=== PATIENT | female | born 1965 | race Caucasian/White ===

== ENCOUNTER 2025-02-21 18:15 | Inpatient (IN) | payer OTHER, SELFPAY ==
[2025-02-21 18:32] VITALS: BP 118/49; PULSE 74; RESP 16; TEMP 36.3; O2SAT 96
[2025-02-21 18:56] VITALS: BMI 31.4
[2025-02-21 20:00] VITALS: PULSE 68; RESP 16; O2SAT 91
[2025-02-21 20:04] VITALS: BMI 31.4
[2025-02-21 20:27] VITALS: BP 127/65; PULSE 68; RESP 16; TEMP 36.6; O2SAT 91
[2025-02-21 21:03] VITALS: BP 127/65; PULSE 68
[2025-02-21] MEDS: Senna/Docusate Sodium 1 Tablet 2 TABLET PO (21:03)
[2025-02-21] MEDS: Metoprolol(XL)Succ 25 MG Tablet PO (21:03)
[2025-02-21] MEDS: SACUBITRIL/VALSARTAN 49-51 MG TABLET 1 EACH PO (21:03)
[2025-02-21] MEDS: Insulin Glargine-YFGN 100 UNIT/ML Pen 15 UNIT SC (21:04)
[2025-02-21 22:02] LABS: Bedside Glucose 171 mg/dL (74-106)
[2025-02-21 23:56] VITALS: BMI 31.4
[2025-02-22 05:55] LABS: Absolute Lymphocyte Count 1.99 X10^3/uL (0.83-4.51); Absolute Neutrophil Count 2.7 X10^3/uL (2.0-7.7); Basophil# 0.07 X10^3/uL; Basophil% 1.3 % (0-1); Eosinophil# 0.22 X10^3/uL; Hematocrit 44.5 % (37-47); Hemoglobin 14.6 g/dL (12.0-15.0); Lymphocyte # 1.99 X10^3/ul (0.83-4.51); Lymphocyte % 36.5 % (19-41); Mean Corp Hgb Conc 32.8 g/dL (32-36); Mean Corpuscular Hgb 30.4 pg (27.0-32.0); Mean Corpuscular Volume 92.5 fL (81-99); Mean Platelet Vol. 11.6 fl (6.2-12.0); Monocyte# 0.47 X10^3/uL; Monocyte% 8.6 % (0-10); NRBC Flagged by Analyzer 0 % (0-5); Neutrophil # 2.68 X10^3/uL (2.7-7.7); Neutrophil % 49.2 % (47-70); Platelet Count 232 K/mm3 (150-450); RBC Distribution Width CV 14.2 % (11.6-14.6); RBC Distribution Width SD 48.6 fl (35.1-43.9); Red Blood Count 4.81 M/mm3 (4.2-5.4); White Blood Count 5.5 K/mm3 (4.4-11.0)
[2025-02-22 06:00] VITALS: BP 144/81; PULSE 63; RESP 15; TEMP 36.6; O2SAT 99
[2025-02-22 07:11] LABS: ALB/GLOB Ratio 0.9 RATIO (0.9-2.4); AST(SGOT) 30 U/L (<=31); Alanine Aminotransfer ALT/SGPT 21 U/L (<=34); Albumin, Serum 3.5 g/dL (3.5-5.0); Alkaline Phosphatase 102 U/L (35-104); Anion Gap 12 (5-15); BUN 40 mg/dL (4-19); BUN/Creat Ratio 32.2 RATIO (10-20); Calcium,Total 9.2 mg/dL (7.6-11.0); Carbon Dioxide 28.1 mmol/L (21.0-32.0); Chloride 95 mmol/L (98-108); Creatinine, Serum 1.24 mg/dL (0.70-1.20); EST Glomerular Filtration Rate 50 (>60); Estimated Creatinine Clearance 58.47 ml/min (50-250); Globulin 3.7 g/dL (2.2-4.2); Glucose 80 mg/dL (70-99); Magnesium 2.8 mg/dL (1.5-2.2); Phosphorus 4.5 mg/dL (2.7-4.5); Protein, Total 7.1 g/dL (5.9-8.4); Sodium Level 136 mmol/L (133-145); Total Bilirubin 2.25 mg/dL (0.00-1.30)
[2025-02-22 07:28] LABS: Bedside Glucose 86 mg/dL (74-106)
[2025-02-22 09:16] VITALS: BP 144/81; PULSE 63
[2025-02-22] MEDS: Bumetanide 0.5 MG Tablet 1 MG PO (09:16)
[2025-02-22] MEDS: Senna/Docusate Sodium 1 Tablet 2 TABLET PO (09:16)
[2025-02-22] MEDS: Empagliflozin 10 MG Tablet PO (09:16)
[2025-02-22] MEDS: Pantoprazole Sodium 20 MG Tablet PO (09:16)
[2025-02-22] MEDS: Metoprolol(XL)Succ 25 MG Tablet PO ×2 (09:16→21:31)
[2025-02-22] MEDS: Clopidogrel Bisulfate 75 MG Tablet PO (09:17)
[2025-02-22] MEDS: Enoxaparin 40 MG/0.4 ML Syringe SC (09:17)
[2025-02-22] MEDS: Aspirin 81 MG TAB.CHEW PO (09:17)
[2025-02-22] MEDS: SACUBITRIL/VALSARTAN 49-51 MG TABLET 1 EACH PO ×2 (09:17→21:31)
--- NOTE | 2025-02-22 09:59 | EX.PCM.HP.RE ---
[facility] - General General Date of Admission: 02/21/25 Date of Service: 02/22/25 Chief Complaint: POST STROKE DEBILITY HPI Narrative KAMILAH HOYT, is a 59 YO F with a past medical history of left bundle branch block, mild nonobstructive coronary artery disease, pulmonary hypertension, essential hypertension, GERD, uncontrolled diabetes mellitus type 2, small PFO, noncompliance with medications, obstructive sleep apnea, history of meningioma (status post resection) obesity, hyperlipidemia, old TIA and nonischemic CM with a 30-35 % EF (on Entresto) who presented to the emergency department at [facility] on 02/12/2025 complaining of increased shortness of breath, bilateral lower extremity swelling and a 50 pound weight gain over the previous few months. Had been noncompliant with her medications. She was transferred to [facility] on 02/13/2025 for management of acute on chronic congestive heart failure. Transthoracic echocardiogram on 02/13/2025 showed increased left ventricular cavity size with an ejection fraction of 25 to 30% and moderate diffuse hypokinesis. Diastolic dysfunction was present. There was mild to moderate mitral regurgitation. The left atrium was mildly dilated. Right ventricular systolic function was decreased and the right ventricular systolic pressure was estimated at 45. There was mild to moderate tricuspid regurgitation and the right atrium was dilated. While hospitalized at [facility] she developed slurred speech. A stroke alert was called. Noncontrast CT brain showed no acute intracranial pathology. CTA of the head and neck showed no evidence of flow-limiting stenosis or large vessel occlusion. MRI of the brain without contrast showed bilateral infarcts in the right occipital lobe and the left frontal lobe/brady radiata. She had a transesophageal echocardiogram on 02/19/2025 that showed no PFO (although she had a diagnosis of small PFO in the past). LDL was 63 and the HDL was 43. Triglycerides were 144. HGBA1C was 10.2. Post stroke she was seen by PT/OT/ST and acute inpt rehab was recommended. She was transferred to the acute inpt rehab unit at [facility] on 02/21/25 for 3 hours of therapy daily to restore function/independence at or near her level prior to stroke. 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 She drives. Her son lives with her. We discussed why she has been on-compliant with medications. It is not a financial thing.......she just didn't take them. She admits to feeling chronically fatigued. She also admits to being irritable at times and tearful. She has trouble getting motivated to take care of herself. She has been depressed in the past but has never received medication or therapy for depression. No significant family history of mental illness. Has also been neglecting her dental care. Diagnosed with diabetes and cardiomyopathy a few years ago. Cannot tell me why she has a cardiomyopathy but it is not ischemic per review of the EMR. She had a sleep study 10 over 10 years ago and was told she has sleep apnea but has never been treated. She has a glucometer at home but does not check her blood sugars. The meningioma was resected 10 years ago. Her customer service analyst is Dr. Poe [facility] Medical History (Updated 02/22/25 @ 12:[address] Lara Forman, ) Poor dentition Asthma Pulmonary hypertension Nonrheumatic tricuspid valve regurgitation Nonrheumatic mitral valve regurgitation Biatrial enlargement Diastolic dysfunction Left bundle branch block History of meningioma of the brain Obesity (BMI 30.0-34.9) HTN (hypertension) Hyperlipidemia GERD (gastroesophageal reflux disease) Nonischemic cardiomyopathy Chronic HFrEF (heart failure with reduced ejection fraction) Uncontrolled type 2 diabetes mellitus Home Medications ?Medication ?Instructions ?Recorded ?Last Taken ?Type acetaminophen 325 mg tablet (Aphen) 650 mg PO Q4H PRN pain 02/21/25 Unknown History aspirin 81 mg capsule 81 mg PO DAILY heart health 02/21/25 Unknown History atorvastatin 40 mg tablet 40 mg PO DAILY cholesterol 02/21/25 Unknown History bumetanide 1 mg tablet 1 mg PO DAILY fluid retention 02/21/25 Unknown History clopidogrel 75 mg tablet 75 mg PO DAILY Blood thinner 02/21/25 Unknown History empagliflozin 10 mg tablet 10 mg PO DAILY Blood sugar 02/21/25 Unknown History (Jardiance) insulin glargine 100 unit/mL (3 15 unit subcut QPM Blood sugar 02/21/25 Unknown History mL) subcutaneous pen (Lantus Solostar U-100 Insulin) insulin lispro 100 unit/mL 3 unit subcut TID blood sugar 02/21/25 Unknown History subcutaneous pen (Humalog KwikPen (U-100) Insulin) metoprolol succinate 25 mg capsule 25 mg PO BID BP 02/21/25 Unknown History sprinkle, ext. release 24 hr omeprazole 20 mg capsule,delayed 20 mg PO DAILY GERD 02/21/25 Unknown History release sacubitril 97 mg-valsartan 103 mg 0.5 tab PO BID BP 02/21/25 Unknown History tablet (Entresto) Allergy/AdvReac Type Severity Reaction Status Date / Time No Known Allergies Allergy Verified 02/21/25 19:08 Family History (Updated 02/22/25 @ 11:[address] Lara Forman DO) Other Diabetes Surgical History (Updated 02/22/25 @ 11:[address] Lara Forman DO) History of resection of meningioma Social History (Updated 02/22/25 @ 11:[address] 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 [facility] Smoking Status: Never smoker substance use type: does not use ROS Constitutional Constitutional: Reports change in weight, fatigue and weakness; Denies anorexia, chills, fever(s) or night sweats Eyes Eyes: Reports change in vision, loss of vision and other Details: Visual field cut in the right lateral inferior quadrant ; Denies blurry vision, diplopia, discharge from eye(s) or eye pain ENT HEENT: Denies abnormal hearing, dental pain, dysphagia, headache(s), hearing loss, nasal congestion, sore throat or vertigo Cardiovascular Cardiovascular: Reports dyspnea on exertion and edema; Denies chest pain, lightheadedness, orthopnea, orthostatic symptoms, palpitations, paroxysmal nocturnal dyspnea, pounding heartbeat, racing heartbeat or syncope Respiratory/Chest Respiratory/Chest: Reports shortness of breath with exertion and other Details: Intermittent wheezing-does not use an inhaler ; Denies cough, dyspnea, shortness of breath at rest or wheezing Gastrointestinal Gastrointestinal: Denies abdominal pain, constipation, diarrhea, dyspepsia, dysphagia, hematemesis, hematochezia, nausea or vomiting Genitourinary Genitourinary: Reports urinary incontinence; Denies dysuria, hematuria, nocturia, urinary frequency, urinary hesitancy or urinary urgency Musculoskeletal Musculoskeletal: Denies back pain, joint pain, joint swelling or neck pain Integumentary Integumentary: Denies acne, hirsutism, jaundice, rash or unusual bruising Neurologic Neurologic: Reports disequilibrium, focal weakness, weakness and other Details: Slurred speech left, some trouble word finding, right lateral inferior quadrantanopia, right-sided weakness, ataxia with the right upper extremity, no extinction ; Denies confusion, dizziness, headache(s), paresthesias, seizures, tremor(s) or vertigo Psychiatric Psychiatric: Reports anhedonia, depression and other; Denies anxiety, hallucinations, homicidal ideation, suicidal ideation, suicidal thoughts or visual hallucinations Endocrine Endocrinology: Denies change in body appearance, polydipsia or polyuria Hematologic/Lymphatic Hematologic/Lymphatic: Denies easy bleeding, easy bruising or lymphadenopathy Allergic/Immunologic Allergic/Immunologic: Reports asthma; Denies rhinitis or eczemia Vital Signs Vital Signs Vital Signs: 02/21/25 18:32 02/21/25 20:00 02/21/25 20:27 Temperature 97.4 F L 97.8 F Temperature Source Temporal Oral Pulse Rate 74 68 68 Respiratory Rate 16 16 16 Respiratory Effort Normal Non-Labored Respiratory Depth Normal Respiratory Pattern Normal Blood Pressure 118/49 L 127/65 H Blood Pressure Mean 72 85 Blood Pressure Source Monitor Monitor Blood Pressure Position Sitting Semi-Fowlers Blood Pressure Location Left Arm Left Arm Pulse Ox 96 91 91 Oxygen Delivery Method Room Air Room Air Room Air Oxygen Flow Rate (L/min) 02/21/25 21:03 02/22/25 06:00 02/22/25 09:16 Temperature 97.8 F Temperature Source Temporal Pulse Rate 68 63 63 Respiratory Rate 15 Respiratory Effort Respiratory Depth Respiratory Pattern Blood Pressure 127/65 H 144/81 H 144/81 H Blood Pressure Mean 102 Blood Pressure Source Monitor Blood Pressure Position Semi-Fowlers Blood Pressure Location Right Arm Pulse Ox 99 Oxygen Delivery Method Nasal Cannula Oxygen Flow Rate (L/min) 2 Weight Weight: 206 lb 9.17 oz Body Mass Index (BMI) 31.4 Indicators for Scoring Admitted with or Primary Diagnosis of CVA/Stroke: Yes Hx of CVA/Stroke: Yes Modified [place] Score MRS Score at time of Evaluation: 4-Moderate/severe disability NIHSS NIHSS 1a. Level of Consciousness: 0 - Alert; keenly responsive 1b. LOC Questions: 0 - Answers BOTH questions correctly 1c. LOC Commands: 0 - Performs BOTH tasks correctly 2. Best Gaze: 1 - Normal 3. Visual: 1 - Partial hemianopia (Right lateral inferior quadrantanopia) 4. Facial Palsy: 2 - Partial paralysis (total or near-total paralysis of lower face) 5a. Left Arm: 0 - No drift; arm holds 90 (or 45) degrees for full 10 seconds 5b. Right Arm: 0 - No drift; arm holds 90 (or 45) degrees for full 10 seconds (She is right-hand dominant and the right upper extremity is definitely weaker than the left) 6a. Left Le - No drift; leg holds 30-degree position for full 5 seconds 6b. Right Le - No drift; leg holds 30-degree position for full 5 seconds (Able to hold her leg up for 5 seconds but weaker in the right leg than the left.) 7. Limb Ataxia: 1 - Present in 1 limb (Right upper extremity) 8. Sensory: 0 - Normal; no sensory loss 9. Best Language: 0 - No aphasia; normal 10. Dysarthria: 1 = [id number] dysarthria; 11. Extinction and Inattention: 0 - No abnormality Total: 5 Stroke Questions Stroke Team Activated: No Physical Exam Const alert, oriented x3 and no apparent distress Constitutional Narrative: Sitting in the recliner at the bedside. Appears older than her stated age. Flat affect. Somewhat unkempt. General Appearance: cooperative HEENT head/scalp atraumatic and hearing grossly normal bilaterally HEENT Narrative: poor dental health has not followed up with a dentist in several years. Tongue deviates to the right. Eyes PERRL, EOMs intact bilaterally and conjunctivae normal Eyes Narrative: Mild scleral icterus. No discharge from the eyes. Loss of vision in the right inferior lateral quadrant. Neck supple, No nodes and no carotid bruits General: trachea midline Chest Chest: symmetrical chest wall rise Resp Resp Narrative: Somewhat decreased breath sounds throughout, most pronounced in the right lower quadrant. Scattered mild expiratory wheeze. Not tachypneic. Respirations are not labored. Effort and Inspection: able to speak in complete sentences Cardio regular rate, regular rhythm, S1 normal heart sound, S2 normal heart sound, no murmurs, no rub and no gallops Cardio Narrative: No ectopy GI normal to inspection, nondistended, normoactive bowel sounds, soft to palpation and non-tender GI Narrative: No guarding with palpation Extremity no calf tenderness and no pedal edema Skin Rashes: no rashes Neuro oriented x3 and moves all extremities Neuro Narrative: She has no drift with the right upper extremity or right lower extremity however she is weak on the right side compared to the left. Marked right facial droop and tongue deviates to the right. She has right lateral inferior quadrantanopia. Ataxic with the right upper extremity. No extinction. No aphasia. Significant dysarthria but I am able to understand her easily. Some neglect of the right side, may be related to the visual field cut. No ataxia with the right lower extremity. She is right-hand dominant. No tremors. Psych cooperative, denies hallucinations and denies suicidal ideation Psych Narrative: Very flat affect. Appearance: unkempt and other Appears older than her stated age Attitude: calm Activity / Motor Behavior: appropriate eye contact; Negative for psychomotor agitation, fidgetting, disorganized or restless Mood & Affect: depressed Thought Process: normal thought process, No disorganized, No flight of ideas, No loose associations, No perseverating, No tangential, No racing thoughts and other Tells me she is having some trouble with word finding. Attention / Concentration: attention grossly intact Results Lab / Micro Data 02/22/25 05:39 02/22/25 05:39 Labs: Laboratory Results - last 24 hr 02/21/25 20:59: POC Glucose 171 H 02/22/25 05:39: WBC 5.5, RBC 4.81, Hgb 14.6, Hct 44.5, MCV 92.5, MCH 30.4, MCHC 32.8, RDW Std Deviation 48.6 H, RDW Coeff of [place]ise[place] 14.2, Plt Count 232, MPV 11.6, Immature Gran % (Auto) 0.400, Neut % (Auto) 49.2, Lymph % (Auto) 36.5, [place] % (Auto) 8.6, Eos % (Auto) 4.0, Baso % (Auto) 1.3 H, Absolute Neuts (auto) 2.7, Absolute Lymphs (auto) 1.99, Nucleated RBC % 0, Sodium 136, Potassium 4.0, Chloride 95 L, Carbon Dioxide 28.1, Anion Gap 12, BUN 40 H, Creatinine 1.24 H, Estim Creat Clear Calc 58.47, Est GFR (MDRD) Non-Af 50 L, BUN/Creatinine Ratio 32.2 H, Glucose 80, Calcium 9.2, Phosphorus 4.5, Magnesium 2.8 H, Total Bilirubin 2.25 H, AST 30, ALT 21, Alkaline Phosphatase 102, Total Protein 7.1, Albumin 3.5, Globulin 3.7, Albumin/Globulin Ratio 0.9 02/22/25 07:01: POC Glucose 86 Assessment & Plan Assessment/Plan (1) Debility: (2) Ischemic cerebrovascular accident (CVA): (3) Urinary incontinence: QUALIFIERS: Urinary Incontinence type: unspecified incontinence Qualified Code(s): R32 - Unspecified urinary incontinence (4) Ataxia: (5) Dysarthria: (6) Right sided weakness: (7) Quadrantanopia of right eye: (8) Depression: QUALIFIERS: Depression Type: unspecified Qualified Code(s): F32.A - Depression, unspecified (9) Hyperbilirubinemia: (10) Elevated serum creatinine: PLAN: I do not know her baseline. Will get records from her customer service analyst and most recent labs. May have CRF. GFR at admission to rehab is 50 which is consistent with stage 3a CRF. (11) Acute on chronic combined systolic and diastolic congestive heart failure: (12) Chronic HFrEF (heart failure with reduced ejection fraction): PLAN: EF 25-30% on recent TTE 02/13/25. (13) Nonischemic cardiomyopathy: (14) GERD (gastroesophageal reflux disease): QUALIFIERS: Esophagitis presence: without esophagitis Qualified Code(s): K21.9 - Gastro-esophageal reflux disease without esophagitis (15) Hyperlipidemia: QUALIFIERS: Hyperlipidemia type: unspecified Qualified Code(s): E78.5 - Hyperlipidemia, unspecified (16) HTN (hypertension): QUALIFIERS: Hypertension type: primary hypertension Qualified Code(s): I10 - Essential (primary) hypertension (17) Uncontrolled type 2 diabetes mellitus: QUALIFIERS: Glycemic state: with hyperglycemia Qualified Code(s): E11.65 - Type 2 diabetes mellitus with hyperglycemia PLAN: HGBA1C 10.2 on 02/13/25 (18) Asthma: QUALIFIERS: Asthma severity: mild Asthma persistence: intermittent Asthma complication type: with acute exacerbation Qualified Code(s): J45.21 - Mild intermittent asthma with (acute) exacerbation PLAN: Not currently being treated. Admits to wheezing but has no inhalers at home. (19) Pulmonary hypertension: PLAN: Transthoracic echocardiogram on 02/13/2025 shows a PA systolic pressure of 45. (20) Nonrheumatic tricuspid valve regurgitation: (21) Nonrheumatic mitral valve regurgitation: (22) Biatrial enlargement: (23) Diastolic dysfunction: (24) Left bundle branch block: (25) Obesity (BMI 30.0-34.9): (26) Obstructive sleep apnea: PLAN: Sleep study was done 10 or more years ago at [facility] She has never been treated for sleep apnea. PLAN: Plan PLAN PT for gait stability OT for ADL's ST for evaluation Analgesics as needed Bowel protocol Fall precautions Assess for Anxiety/Depression GI prophylaxis -Protonix DVT prophylaxis with Lovenox Follow up with PCP, Dr. Poe, neurology following DC from Rehab. I think she would benefit from psychotherapy for chronic depression. AM lab including CMP, CBC, Mag and Phos Start Sertraline 50 mg daily - D/W pt and she is agreeable to this. Overnight trending pulse ox. Recommend follow up [place] with a dentist Ask her about MMG's, PAPs, vaccines during this admission to see if she is up to date. Daily weights for a few days and I&O Straight cath for a UA due to urinary incontinence. Monitor blood sugars AC and at bedtime. The fasting blood sugar was 86 this morning. Consider decreasing glargine if the a.m. sugars consistently less than 90. Continue Jardiance 10 mg daily. Goal for blood pressure is less than 130/80 Goal for hemoglobin A1c is 7 or less Goal for LDL is 70 or less....... LFTs are normal PA and lateral chest x-ray today to assess for pulmonary vascular congestion/pleural effusion. Order a as needed albuterol inhaler Obtain records from Check a vitamin D level Continue dual antiplatelet agents for 3 weeks. 75 Minutes spent reviewing past diagnostic tests, lab results, vital sign trends, medical history, medications, all additional paperwork sent by the previous hospital, and ordering medications, examining the the patient and completing documentation. Charges/Coding Visit Charges Inpatient E&M: 66096 Init Hosp L3
--- NOTE | 2025-02-22 11:32 | RAD_ITS ---
PROCEDURE: CHEST PA AND LATERAL 02/22/2025 REASON FOR EXAM: CHF/SOB TECHNIQUE: Frontal and lateral views of the chest. COMPARISON: None FINDINGS: Hardware: None Heart: The heart size is normal. Mediastinum: The mediastinal contour is unremarkable. Lungs: The lungs are clear. Bones: Degenerative changes are identified within the thoracic spine. RAD/Chest PA and Lateral IMPRESSION: NO ACUTE FINDINGS. Reading Location: [facility]
[2025-02-22 11:33] LABS: Bedside Glucose 167 mg/dL (74-106)
[2025-02-22] MEDS: Sertraline 50 MG Tablet PO (12:07)
[2025-02-22] MEDS: Insulin Lispro 100 UNIT/ML INSULN.PEN SC ×2 (12:07→16:48)
[2025-02-22 14:44] LABS: Vitamin D,25 Hydroxy 7.1 ng/mL (30-100)
[2025-02-22 15:22] VITALS: BMI 31.4
--- NOTE | 2025-02-22 16:28 | REHABEVAL_ITS ---
Admission Information Primary Diagnosis:: Post stroke debility Status Changes from Prescreening?: No changes Identified Actual Problem List:: Cognitve Impr/Memory Loss, Depression, Bladder Incontinence, Alteration in Sleep, Mobility Impaired, Self Care Deficit, BP, Hypertension and Alteration-Leisure Activ. Potential Problem List:: DVT, Bleeding, Infection, UTI, Aspiration, Falls, Skin Integrity and Depression Risk of Complications DVT: LMWH and MIGUE Hose Bleeding: Monitor Lab Values, Nursing to Teach Precautions for anti-coagulation therapy., Wound, if applicable, to be assessed every shift. and Stroke patients assessed for lethargy or change in status. Infection: Clinical Staff to Monitor for S/S of infection: and S/S of infection include fever, redness, warmth, etc. Urinary Tract Infection: Monitor for frequency, burning, discomfort, or incontinence. and Nursing will obtain urine sample for urinalysis and C&S when ordered. Aspiration: Clinical staff will monitor for coughing, drooling, congestion., Speech will evaluate swallowing and dsyphasia. and Nursing will monitor patient swallowing during meals. Falls: Patient will be evaluated for Fall Precautions and Patient will be placed on Fall Precautions as indicated per protocol. Skin Breakdown: Nursing will assess skin daily using assessment tool. and Nursing will place on Skin Breakdown Precautions as indicated. Pain: Clinical staff will assess patient's pain level per protocol., Medications will be given, if needed, and the pain level reassessed. and Other methods: Massage, distraction, decrease stimulus, etc. used PRN. Plan of Care Patient requires physician specializing in physical medicine and rehab oversight to provide close medical supervision of rehab issues including: Pain Management, Sleep Problems, Bowel and Bladder, Medical and co-morbidity Management, DVT prophylaxis, Rehabilitation Leadership and Coordination of treatment team Patient needs Physical Therapy: For a minimum of 1 hour and At least 5 out of 7 days Patient needs Physical Therapy to improve:: Mobility, Strengthening, Transfers, Stretching, ROM, Endurance, Stairs, Gait and Balance Patient needs Occupational Therapy: For a minimum of 1 hour and At least 5 out of 7 days Patient needs Occupational Therapy to improve ADL's incl.: Eating, Grooming, Bathing, Dressing, Toileting, Toilet transfers, Community Reintegration, Higher functioning activities, Household tasks, Adaptive Equipment, Splinting and Other activities as determined Patient requires speech therapy: For a minimum of 1 hour and At least 5 out of 7 days Patient requires speech therapy for: Swallowing, Cognition, Language Skills and Compensatory Strategies Patient requires 24/ Rehabilitation Nursing for: Pain Issues, Identifying and preventing risk factors, Monitoring and reporting current medical conditions, As sisting with ambulation, transfer, and all ADL's, Teaching patients about disease process and medications, Family teaching, Providing safe environment, Bowel and Bladder Issues, Skin integrity and Medication Management Patient needs Finance Specialist/ Case Management for: Discharge Planning, Arranging Home Equipment or Services and Family Interventions Patient needs Dietary and Nutrition Services for: Adequate Nutrition, Nutritional Supplements and Nutritional Education Goals Goals Patient will remain: free from falls Patient will perform eating at: MOD I level of assist. Patient will perform bed mobility at: MOD I level of assist. Patient will complete transfers from bed to chair at: MOD I level of assist. Patient will ambulate: - (350 feet with least restrictive device at [facility] on various surfaces) Patient will complete upper body dressing at: MOD I level of assist. Patient will complete lower body dressing at: MOD I level of assist. (With adaptive equipment as needed) Patient will complete toilet transfer at: MOD I level of assist. Patient will complete toileting at: MOD I level of assist. Patient will perform bathing at: MOD I level of assist. (Patient will complete upper body bathing independently and lower body bathing at mod I with adaptive equipment as needed.) Patient will perform Tub/Shower transfer at: - (Supervision) Patient will complete grooming at: MOD I level of assist. Patient will complete home management skills at: MOD I level of assist. Patient will achieve: - (1 flight of stairs with 1 handrail at standby assist to allow access to her basement laundry) Patient will have pain level of: of 3 or less Patient's skin will: remain intact Patient will receive: adequate nutrition. Discharge Planning Pt Prognosis for Sig. Practical Improv. w/in Reasonable Time: Good Estimated Length of stay (days): 21 Anticipated D/C Destination: Home with Outpt Therapy Was Preadmission Assessment Accurate?: Yes
[2025-02-22 16:59] LABS: Bedside Glucose 195 mg/dL (74-106)
[2025-02-22 17:36] VITALS: BP 138/78; PULSE 77; RESP 18; TEMP 36.5; O2SAT 96
[2025-02-22 17:53] LABS: Bacteria 0 SEEN /hpf (None Seen); Mucous, Urine 0 SEEN /hpf (<or=2+); Red Blood Cells-Urine 0 SEEN /hpf (0-5); Squamous Epithelial Cells - UA 0 SEEN /hpf (5-10)
[2025-02-22 18:12] LABS: Color, Urine Yellow (Yellow); Glucose, Dipstick 1000 mg/dl (Normal); Ketone-Dipstick Negative (Negative); Leukocyte Esterase-Dipstick Negative /ul (Negative); Nitrite-Dipstick Negative (Negative); Occult Blood-Urine Negative /ul (Negative); Protein-Dipstick 30 mg/dl (Negative); Urine Bilirubin Dipstick Negative (Negative); Urine Clarity Clear (Clear); Urine Urobilinogen Normal (Normal)
[2025-02-22 18:37] LABS: Hyaline Cast 0-5 SEEN /lpf (0-5); White Blood Cells 0-5 SEEN /hpf (0-5)
[2025-02-22 21:27] LABS: Bedside Glucose 195 mg/dL (74-106)
[2025-02-22] MEDS: Insulin Glargine-YFGN 100 UNIT/ML Pen 15 UNIT SC (21:29)
[2025-02-22 21:30] VITALS: PULSE 77; RESP 18; O2SAT 96; BMI 31.4
[2025-02-22 21:31] VITALS: BP 155/75; PULSE 76
[2025-02-22] MEDS: Atorvastatin Calcium 40 MG Tablet PO (21:31)
[2025-02-22 22:50] VITALS: O2SAT 97
[2025-02-23 05:38] VITALS: BP 128/60; PULSE 64; RESP 18; TEMP 36.4; O2SAT 16; BMI 30.9
[2025-02-23] MEDS: Enoxaparin 40 MG/0.4 ML Syringe SC (05:42)
[2025-02-23 06:51] LABS: Bedside Glucose 105 mg/dL (74-106)
--- NOTE | 2025-02-23 06:57 | NURSING ---
2129 on the pt sister landon took pt home medications home with her .
[2025-02-23 07:45] VITALS: O2SAT 93
[2025-02-23] MEDS: Senna/Docusate Sodium 1 Tablet 2 TABLET PO (09:18)
[2025-02-23] MEDS: Pantoprazole Sodium 20 MG Tablet PO (09:18)
[2025-02-23] MEDS: Bumetanide 0.5 MG Tablet 1 MG PO (09:18)
[2025-02-23] MEDS: SACUBITRIL/VALSARTAN 49-51 MG TABLET 1 EACH PO ×2 (09:18→21:52)
[2025-02-23] MEDS: Aspirin 81 MG TAB.CHEW PO (09:18)
[2025-02-23] MEDS: Cholecalciferol (VIT D3) 25 MCG TABLET (1,000 UNITS) PO (09:18)
[2025-02-23] MEDS: Sertraline 50 MG Tablet PO (09:18)
[2025-02-23] MEDS: Empagliflozin 10 MG Tablet PO (09:19)
[2025-02-23] MEDS: Clopidogrel Bisulfate 75 MG Tablet PO (09:20)
[2025-02-23 09:21] VITALS: BP 110/62; PULSE 75
[2025-02-23] MEDS: Metoprolol(XL)Succ 25 MG Tablet PO ×2 (09:21→21:52)
[2025-02-23 10:23] VITALS: BMI 30.9
[2025-02-23 12:01] LABS: Bedside Glucose 159 mg/dL (74-106)
[2025-02-23] MEDS: Insulin Lispro 100 UNIT/ML INSULN.PEN SC ×2 (12:19→17:05)
[2025-02-23 17:41] LABS: Bedside Glucose 166 mg/dL (74-106)
[2025-02-23 18:00] VITALS: BP 116/65; PULSE 74; RESP 16; TEMP 35.9; O2SAT 95
[2025-02-23] MEDS: Insulin Glargine-YFGN 100 UNIT/ML Pen 15 UNIT SC (21:46)
[2025-02-23 21:52] VITALS: BP 122/69; PULSE 72
[2025-02-23] MEDS: Atorvastatin Calcium 40 MG Tablet PO (21:52)
[2025-02-23 21:55] VITALS: BP 122/69; PULSE 72
[2025-02-23 22:33] LABS: Bedside Glucose 168 mg/dL (74-106)
[2025-02-23 23:01] LABS: Hematocrit 44.1 % (37-47); Hemoglobin 14.7 g/dL (12.0-15.0)
--- NOTE | 2025-02-23 23:37 | NURSING ---
Pt having liquid stools with bright red blood. She has a moderate amount of blood in depends. Denies having hemorrhoids. Dr. Forman notified. Orders received to hold plavix, asa and lovenox. Stat H and H to be done. H and H stable at 14.7 and 44.1 this evening. Pt denies abdominal pain. VSS 122/69, hr 72.
[2025-02-23 23:53] VITALS: BMI 30.9
--- NOTE | 2025-02-24 03:53 | PCM.HP.STD ---
HPI - General General Date of Admission: 02/21/25 Chief Complaint: POST STROKE DEBILITY HPI Narrative KAMILAH HOYT, is a 59 F who presents [facility] Medical History (Updated 02/22/25 @ 12:[address] Lara Forman DO) Poor dentition Asthma Pulmonary hypertension Nonrheumatic tricuspid valve regurgitation Nonrheumatic mitral valve regurgitation Biatrial enlargement Diastolic dysfunction Left bundle branch block History of meningioma of the brain Obesity (BMI 30.0-34.9) HTN (hypertension) Hyperlipidemia GERD (gastroesophageal reflux disease) Nonischemic cardiomyopathy Chronic HFrEF (heart failure with reduced ejection fraction) Uncontrolled type 2 diabetes mellitus Home Medications ?Medication ?Instructions ?Recorded ?Last Taken ?Type acetaminophen 325 mg tablet (Aphen) 650 mg PO Q4H PRN pain 02/21/25 Unknown History aspirin 81 mg capsule 81 mg PO DAILY heart health 02/21/25 Unknown History atorvastatin 40 mg tablet 40 mg PO DAILY cholesterol 02/21/25 Unknown History bumetanide 1 mg tablet 1 mg PO DAILY fluid retention 02/21/25 Unknown History clopidogrel 75 mg tablet 75 mg PO DAILY Blood thinner 02/21/25 Unknown History empagliflozin 10 mg tablet 10 mg PO DAILY Blood sugar 02/21/25 Unknown History (Jardiance) insulin glargine 100 unit/mL (3 15 unit subcut QPM Blood sugar 02/21/25 Unknown History mL) subcutaneous pen (Lantus Solostar U-100 Insulin) insulin lispro 100 unit/mL 3 unit subcut TID blood sugar 02/21/25 Unknown History subcutaneous pen (Humalog KwikPen (U-100) Insulin) metoprolol succinate 25 mg capsule 25 mg PO BID BP 02/21/25 Unknown History sprinkle, ext. release 24 hr omeprazole 20 mg capsule,delayed 20 mg PO DAILY GERD 02/21/25 Unknown History release sacubitril 97 mg-valsartan 103 mg 0.5 tab PO BID BP 02/21/25 Unknown History tablet (Entresto) Allergy/AdvReac Type Severity Reaction Status Date / Time No Known Allergies Allergy Verified 02/21/25 19:08 Family History (Updated 02/22/25 @ 11:[address] Lara Forman DO) Other Diabetes Surgical History (Updated 02/22/25 @ 11:[address] Lara Forman DO) History of resection of meningioma Social History (Updated 02/22/25 @ 11:[address] 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[employer] Smoking Status: Never smoker substance use type: does not use Vital Signs Vital Signs Vital Signs: 02/23/25 05:38 02/23/25 07:45 02/23/25 09:21 Temperature 97.5 F L Temperature Source Oral Pulse Rate 64 75 Respiratory Rate 18 Respiratory Effort Respiratory Depth Respiratory Pattern Blood Pressure 128/60 H 110/62 Blood Pressure Mean 82 Blood Pressure Source Monitor Blood Pressure Position Semi-Fowlers Blood Pressure Location Left Forearm Pulse Ox 16 93 Oxygen Delivery Method Room Air Room Air 02/23/25 10:00 02/23/25 18:00 02/23/25 21:52 Temperature 96.7 F L Temperature Source Temporal Pulse Rate 74 72 Respiratory Rate 16 Respiratory Effort Normal Non-Labored Respiratory Depth Normal Respiratory Pattern Normal Blood Pressure 116/65 122/69 H Blood Pressure Mean 82 Blood Pressure Source Monitor Blood Pressure Position Semi-Fowlers Blood Pressure Location Left Arm Pulse Ox 95 Oxygen Delivery Method Room Air Room Air 02/23/25 21:55 02/23/25 22:00 Temperature Temperature Source Pulse Rate 72 Respiratory Rate Respiratory Effort Normal Non-Labored Respiratory Depth Normal Respiratory Pattern Normal Blood Pressure 122/69 H Blood Pressure Mean 86 Blood Pressure Source Monitor Blood Pressure Position Semi-Fowlers Blood Pressure Location Left Arm Pulse Ox Oxygen Delivery Method Weight Weight: 92.4 kg Body Mass Index (BMI) 30.9 Results Lab / Micro Data 02/23/25 22:46 02/22/25 05:39 Labs: Laboratory Results - last 24 hr 02/23/25 05:49: POC Glucose 105 02/23/25 11:38: POC Glucose 159 H 02/23/25 17:04: POC Glucose 166 H 02/23/25 21:43: POC Glucose 168 H 02/23/25 22:46: Hgb 14.7, Hct 44.1
--- NOTE | 2025-02-24 04:09 | NURSING ---
0320; Pt rang call warren to go to bathroom. Pt walked to bathroom with minimal assist. While using restroom pt stated she was dizzy and rested her head on nurse. Skin warm and dry. Vital signs taken BP 58/36 HR 72. Rapid called. Pt Passing blood in toilet. Dr. Schmitt, warehouse consultant and ICU nurse responded. Pt transferred from toilet to bed. Placed in Trendelenburg. BP 115/70 HR 76, Blood sugar 227. Pt states she is feeling a bit better. Pt had episode of dry heaving while on toilet. PIV started in r wrist #22 g, gbr. 0345; vs 100/51 hr 68. Pt taken out of Trendelenburg for transfer to PCU 109. BP dropped to 80/48 hr 70. Pt placed back in trendelenberg for transport bp 99/59, Hr 67. Report called to [place] [facility].
[2025-02-24 04:31] LABS: Absolute Lymphocyte Count 1.62 X10^3/uL (0.83-4.51); Absolute Neutrophil Count 4.2 X10^3/uL (2.0-7.7); Basophil# 0.06 X10^3/uL; Basophil% 0.9 % (0-1); Eosinophil# 0.16 X10^3/uL; Eosinophils% 2.4 % (0-5); Lymphocyte # 1.62 X10^3/ul (0.83-4.51); Lymphocyte % 24.5 % (19-41); Mean Corp Hgb Conc 33.3 g/dL (32-36); Mean Corpuscular Hgb 30.7 pg (27.0-32.0); Mean Platelet Vol. 12.6 fl (6.2-12.0); Monocyte% 7.6 % (0-10); NRBC Flagged by Analyzer 0 % (0-5); Neutrophil # 4.24 X10^3/uL (2.7-7.7); Platelet Count 243 K/mm3 (150-450); RBC Distribution Width SD 47.5 fl (35.1-43.9); Red Blood Count 4.24 M/mm3 (4.2-5.4); White Blood Count 6.6 K/mm3 (4.4-11.0)
[2025-02-24 04:52] LABS: Anion Gap 13 (5-15); BUN 45 mg/dL (4-19); Calcium,Total 8.8 mg/dL (7.6-11.0); Carbon Dioxide 27.3 mmol/L (21.0-32.0); Chloride 95 mmol/L (98-108); Creatinine, Serum 1.42 mg/dL (0.70-1.20); EST Glomerular Filtration Rate 43 (>60); Estimated Creatinine Clearance 50.71 ml/min (50-250); Glucose 222 mg/dL (70-99); Potassium 4.2 mmol/L (3.3-5.1); Sodium Level 135 mmol/L (133-145)
[2025-02-24 04:58] LABS: Bedside Glucose 227 mg/dL (74-106)
== END 2025-02-24 04:10 | disposition short-term general hospital (02) | DRG 57 ==
PROVIDERS: Hospitalist; Admitting Provider Internal Medicine; Visit Provider Internal Medicine
DX: I69.351 Hemiplegia and hemiparesis following cerebral infarction affecting right dominant side (principal); I13.0 Hypertensive heart and chronic kidney disease with heart failure and stage 1 through stage 4 chronic kidney disease, or unspecified chronic kidney disease; J45.21 Mild intermittent asthma with (acute) exacerbation; I50.42 Chronic combined systolic (congestive) and diastolic (congestive) heart failure; I42.8 Other cardiomyopathies; Q21.12 Patent foramen ovale; H53.461 Homonymous bilateral field defects, right side; I27.20 Pulmonary hypertension, unspecified; E11.65 Type 2 diabetes mellitus with hyperglycemia; N18.32 Chronic kidney disease, stage 3b; I69.322 Dysarthria following cerebral infarction; E66.9 Obesity, unspecified; Z79.4 Long term (current) use of insulin; I44.7 Left bundle-branch block, unspecified; K21.9 Gastro-esophageal reflux disease without esophagitis; G47.33 Obstructive sleep apnea (adult) (pediatric); E80.6 Other disorders of bilirubin metabolism; E78.5 Hyperlipidemia, unspecified; I69.393 Ataxia following cerebral infarction; I69.392 Facial weakness following cerebral infarction; I69.398 Other sequelae of cerebral infarction; E55.9 Vitamin D deficiency, unspecified; R32 Unspecified urinary incontinence; Z79.84 Long term (current) use of oral hypoglycemic drugs; Z68.31 Body mass index [BMI] 31.0-31.9, adult; Z79.899 Other long term (current) drug therapy; Z79.82 Long term (current) use of aspirin; Z79.02 Long term (current) use of antithrombotics/antiplatelets; Z91.148 Patient's other noncompliance with medication regimen for other reason
CPT/HCPCS: 36415; 71046; 80048; 80053; 81001; 82306; 82962; 83735; 84100; 85014; 85018; 85025; 92507; 92523; 92526; 92610; 94762; 97162; 97166; 97535; 97802

== ENCOUNTER 2025-02-24 04:56 | Inpatient (IN) | payer OTHER, SELFPAY ==
[2025-02-24] VITALS (14 sets, daily range): BP systolic 89–107; BP diastolic 46–86; PULSE 62–104; RESP 18; TEMP 35.8–36.6; O2SAT 90–100; BMI 31.0
--- NOTE | 2025-02-24 04:55 | HP.PCM.HOS_ITS ---
HPI - General General Date of Admission: 02/24/25 Date of Service: 02/24/25 Chief Complaint: Dark bloody stools with presyncopal symptoms HPI Narrative KAMILAH HOYT, is a 59 F who was initially hospitalized at [facility] from 02/12-02/21. She presented there with severe volume overload in setting of heart failure exacerbation secondary to medication nonadherence. The hospital course was complicated by CVA leading to impaired mobility. See Dr. Singleton's H&P for more complete history of her recent hospital course and outside hospital. She ultimately was able to be discharged to our inpatient rehab on 02/21. Had been doing fine here until earlier this evening. She was noted to have some lightheadedness and dizziness with ambulation and had a bowel movement with dark blood noted around 8 PM. Stat hemoglobin was obtained and was 14.7, stable from previous. However, around 2 AM patient ambulated to the bathroom and became very lightheaded and dizzy, and she had a large dark bloody bowel movement at that time. Nursing staff noted that she looked very pale and her blood pressure was in the 60s over 30s. Rapid response was called at that time. I arrived to her room a few minutes later. She was still sitting on the toilet with 2 nurses with her and appeared very pale. She had some dry heaving episodes at that time as well. She did improve slightly after a few minutes and was able to be shifted from the toilet back into bed. Blood pressure was rechecked and was in the 110s over 50s. She was awake and alert and able to answer my questions with short appropriate responses. Given the significant bloody bowel movements and suspected vasovagal episode, decision was made to admit patient to the PCU for further management. [facility] Medical History (Updated 02/24/25 @ 06:[address] Chance Schmitt, DO) Poor dentition Asthma Pulmonary hypertension Nonrheumatic tricuspid valve regurgitation Nonrheumatic mitral valve regurgitation Biatrial enlargement Diastolic dysfunction Left bundle branch block History of meningioma of the brain Obesity (BMI 30.0-34.9) HTN (hypertension) Hyperlipidemia GERD (gastroesophageal reflux disease) Nonischemic cardiomyopathy Chronic HFrEF (heart failure with reduced ejection fraction) Uncontrolled type 2 diabetes mellitus Home Medications ?Medication ?Instructions ?Recorded ?Last Taken ?Type acetaminophen 325 mg tablet (Aphen) 650 mg PO Q4H PRN pain 02/21/25 Unknown History aspirin 81 mg capsule 81 mg PO DAILY heart health 02/21/25 Unknown History atorvastatin 40 mg tablet 40 mg PO DAILY cholesterol 0 02/21/25 Unknown History bumetanide 1 mg tablet 1 mg PO DAILY fluid retentio n 02/21/25 Unknown History clopidogrel 75 mg tablet 75 mg PO DAILY Blood thinner 02/21/25 Unknown History empagliflozin 10 mg tablet 10 mg PO DAILY Blood sugar 02/21/25 Unknown History (Jardiance) insulin glargine 100 unit/mL (3 15 unit subcut QPM Blo od sugar 02/21/25 Unknown History mL) subcutaneous pen (Lantus Solostar U-100 Insulin) insulin lispro 100 unit/mL 3 unit subcut TID blood sug ar 02/21/25 Unknown History subcutaneous pen (Humalog KwikPen (U-100) Insulin) metoprolol succinate 25 mg capsule 25 mg PO BID BP Unknown History sprinkle, ext. release 24 hr omeprazole 20 mg capsule,delayed 20 mg PO DAILY GERD 0 02/21/25 Unknown History release sacubitril 97 mg-valsartan 103 mg 0.5 tab PO BID BP Unknown History tablet (Entresto) Allergy/AdvReac Type Severity Reaction Status Date / Time No Known Allergies Allergy Verified 02/21/25 19:08 Family History (Updated 02/22/25 @ 11:[address] Lara Forman DO) Other Diabetes Surgical History History of resection of meningioma Social History (Updated 02/22/25 @ 11:[address] 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 [facility] Smoking Status: Never smoker substance use type: does not use ROS Constitutional Constitutional: Reports fatigue and weakness; Denies chills or fever(s) Eyes Eyes: Denies change in vision Cardiovascular Cardiovascular: Reports lightheadedness; Denies chest pain, dyspnea on exertion or palpitations Respiratory/Chest Respiratory/Chest: Denies cough or shortness of breath at rest Gastrointestinal Gastrointestinal: Reports diarrhea, hematochezia and nausea; Denies abdominal pain, constipation or vomiting Genitourinary Genitourinary: Denies dysuria Musculoskeletal Musculoskeletal: Denies arthralgias or myalgias Neurologic Neurologic: Reports dizziness; Denies headache(s) Vital Signs Vital Signs Vital Signs: 02/24/25 04:10 02/24/25 04:51 Temperature 96.5 F L Temperature Source Temporal Pulse Rate 69 Respiratory Rate 18 Respiratory Effort Normal Non-Labored Respiratory Depth Normal Respiratory Pattern Normal Blood Pressure 103/54 L Blood Pressure Mean 70 Pulse Ox 99 Oxygen Delivery Method Nasal Cannula Venturi Mask Oxygen Flow Rate (L/min) 2 2 Weight Weight: 92.5 kg Body Mass Index (BMI) 31.0 Physical Exam Const alert Constitutional Narrative: Middle-aged female, class I obesity, fatigued and pale appearing, able to answer questions with short appropriate responses, otherwise not in any acute pain or discomfort. General Appearance: cooperative Orientation / Consciousness: lethargic HEENT normocephalic, head/scalp atraumatic, hearing grossly normal bilaterally and nasal mucous membranes and turbinates normal Eyes PERRL, EOMs intact bilaterally and conjunctivae normal Neck full ROM Chest inspection of chest normal Resp normal respiratory effort, normal air movement, no use of accessory muscles and clear to auscultation bilaterally Cardio regular rate, regular rhythm, no murmurs and peripheral pulses 2+ throughout GI GI Narrative: Abdomen soft, nontender and nondistended on palpation. Normal to mildly hypoactive bowel sounds noted. Back/Spine normal ROM Extremity normal to inspection and no pedal edema Skin no rashes or lesions noted Assessment & Plan Assessment/Plan (1) Lower GI bleed: PLAN: Plan Patient is a 59-year-old female who presented from our inpatient rehab unit for dark bloody bowel movements and presyncopal symptoms. 1. Lower GI bleed ? Admit under inpatient status to PCU. GI consulted. Patient had 2 episodes of significant dark bloody bowel movements while in IPR unit with significant blood pressure drop and presyncopal symptoms. Hemoglobin dropped from 14.[address] abdomen pelvis with IV contrast showed active GI bleed in the proximal descending colon near the splenic flexure. Seems most consistent with diverticular bleed. N.p.o. status and urgent GI consult placed. Will monitor hemoglobin every 6 hours. Type and screen ordered as well. Holding home aspirin and Plavix. 2. Recent acute CVA with acute debility ? PT/OT/case management consulted. Patient with CVA during recent admission at [facility] with deficits of dysarthria, ataxia, vision changes and mild right-sided weakness. May be able to return to [facility] on discharge, appreciate therapy recommendations. 3. Mild creatinine elevation ? Creatinine 1.42 on morning 02/24. Baseline appears to be around 1.1-1.2. Presume prerenal in setting of active GI bleed. Will hold home Bumex and Jardiance. Will give 750 cc fluid bolus for now. Monitor daily BMP and urine output. 4. Chronic HFrEF ? Hospitalized at [facility] recently for acute on chronic HFrEF due to medication nonadherence. Echo 02/13 showed EF 25 to 30% with moderate diffuse hypokinesis. Given active GI bleed with borderline hypotension as above, will hold home Bumex, Jardiance, Toprol and Entresto. Okay to continue home statin. 5. Type 2 diabetes mellitus ? Will treat with sliding scale insulin every 6 hours while patient is n.p.o. status. 6. GERD ? Continue home PPI. 7. Class I obesity with ALLYN ? BMI 31 on admit. Complicates hospital course, care and prognosis. Continue home CPAP. 8. Medication nonadherence ? See Dr. Forman's H&P for further details. In short, patient reported nonadherence due to chronic fatigue with irritability and symptoms consistent with depression. Will strongly encourage adherence to medications on discharge. DVT prophylaxis: SCDs CODE STATUS: Full code, verified Expected disposition: TBD Total clinical time spent by myself addressing the patient's medical issues, reviewing all the data, and collaborating with patient's care team: 75 minutes. Charges/Coding Visit Charges Inpatient E&M: 02251 Init Hosp L3
--- NOTE | 2025-02-24 05:00 | CT_ITS ---
PROCEDURE: ABDOMEN/PELVIS W IV CONT ONLY 02/24/2025 REASON FOR EXAM: LOWER GI BLEED TECHNIQUE: Abdomen and pelvis CT with intravenous contrast. Coronal and Sagittal reconstruction series were provided. PATIENT PREPARATION: Per protocol ORAL CONTRAST TYPE: None. CONTRAST: Isovue 370 VOLUME: 100 mL One or more dose reduction techniques were used (e.g., Automated exposure control, adjustment of the mA and/or kV according to patient size, use of iterative reconstruction technique. RADIATION DOSE SUMMARY: CTDlvol: 23 mGy DLP: 1253 mGycm FINDINGS: There are streaky changes at the lung bases. There is no pleural pericardial effusion. There is no free air within the abdomen or pelvis. The liver is borderline prominent measuring up to 21 cm in craniocaudal dimension. The spleen, adrenals, kidneys are within normal limits. The gallbladder is surgically absent. Pancreas is mildly atrophic. The common bile duct somewhat prominent and measures up to 10 mm. This may be due to the absence of the gallbladder. The uterus is absent. There is scattered sigmoid diverticulosis without definite CT evidence of acute diverticulitis. Appendix is normal. Area of focal high density seen within the proximal descending colon near the splenic flexure (image 55/112 and image 39/135). This is consistent with areas of active bleeding within the proximal descending colon. There is no bowel obstruction. There are no abnormal free fluid within the abdomen or pelvis. There are scattered atheromatous disease calcification within the aorta. Prior sclerotic density seen within the sacrum (image 103/185), may represent bone island. Age indeterminate compression deformity seen within the T12 vertebral body. This is best seen on sagittal view (image 97/185). CT/Abdomen/Pelvis W IV Cont ONLY IMPRESSION: Findings are consistent with active bleeding within the patient's proximal desc ending colon near the splenic flexure. Recommend urgent/emergent GI consultation. Age-indeterminate T12 vertebral body compression deformity. Other findings as above. Radha Fiore RN, the charge nurse was notified of this critical findings at the time of interpretation. Red Alert: Active colonic bleed near the splenic flexure The critical information above was relayed directly by me by telephone to Chance Pereira MD and , Radha Fiore RN on 02/24/2025 at 6:10 am with readback verification. Reading Location: [id number]
[2025-02-24] MEDS: Lactated Ringers 1,000 ML 150 ML IV (05:29)
[2025-02-24] MEDS: Pantoprazole Sodium 40 MG in 0.9% Normal Saline (100mL MB+) 100 ML 330 MG IV (05:56)
[2025-02-24 10:00] LABS: Hematocrit 36.7 % (37-47); Hemoglobin 11.8 g/dL (12.0-15.0); Mean Corp Hgb Conc 32.2 g/dL (32-36); Mean Corpuscular Hgb 30.4 pg (27.0-32.0); Mean Corpuscular Volume 94.6 fL (81-99); Mean Platelet Vol. 12.7 fl (6.2-12.0); Platelet Count 237 K/mm3 (150-450); RBC Distribution Width CV 13.8 % (11.6-14.6); RBC Distribution Width SD 47.8 fl (35.1-43.9); Red Blood Count 3.88 M/mm3 (4.2-5.4); White Blood Count 6.9 K/mm3 (4.4-11.0)
[2025-02-24] MEDS: 0.9% Normal Saline (1000mL) 1,000 ML 100 ML IV (11:13)
[2025-02-24 12:00] LABS: Bedside Glucose 128 mg/dL (74-106)
--- NOTE | 2025-02-24 16:07 | PCM.PN.BLA ---
Progress Note History of heart failure and type 2 diabetes who has a history of noncompliance was transferred to inpatient rehab after having a CVA at an outside hospital during her hospitalization for heart failure exacerbation. While here in rehab she did have a melanotic stool though no significant anemia and presented to the inpatient side of the hospital. Planning for GI workup with an EGD and possible colonoscopy depending on GIs preferences.
[2025-02-24 17:13] LABS: Bedside Glucose 100 mg/dL (74-106)
[2025-02-24 18:28] LABS: Hematocrit 33.3 % (37-47); Hemoglobin 11.1 g/dL (12.0-15.0)
[2025-02-24] MEDS: Atorvastatin Calcium 40 MG Tablet PO (20:04)
[2025-02-24 23:27] LABS: Bedside Glucose 151 mg/dL (74-106)
[2025-02-25] VITALS (7 sets, daily range): BP systolic 107–144; BP diastolic 55–65; PULSE 78–94; RESP 15–19; TEMP 36.5–36.7; O2SAT 93–100; BMI 31.0
[2025-02-25 00:24] LABS: Hematocrit 32.1 % (37-47); Hemoglobin 10.7 g/dL (12.0-15.0)
[2025-02-25 05:34] LABS: Partial Thromboplast Time 29.1 Seconds (24.1-36.2); Prothrombin Time (Protime)PT. 13.5 SECONDS (11.7-14.9)
[2025-02-25 05:40] LABS: Hematocrit 30.9 % (37-47); Hemoglobin 10.2 g/dL (12.0-15.0); Mean Corpuscular Hgb 30.3 pg (27.0-32.0); Mean Corpuscular Volume 91.7 fL (81-99); Mean Platelet Vol. 12.8 fl (6.2-12.0); Platelet Count 224 K/mm3 (150-450); RBC Distribution Width CV 13.8 % (11.6-14.6); RBC Distribution Width SD 46.5 fl (35.1-43.9); Red Blood Count 3.37 M/mm3 (4.2-5.4); White Blood Count 8.3 K/mm3 (4.4-11.0)
[2025-02-25 05:41] LABS: Bedside Glucose 101 mg/dL (74-106)
--- NOTE | 2025-02-25 05:55 | EKG12_ITS ---
Test Reason : PRE OP Blood Pressure : */* mmHG Vent. Rate : 77 BPM Atrial Rate : 77 BPM P-R Int : 162 ms QRS Dur : 158 ms QT Int : 438 ms P-R-T Axes : 63 -24 144 degrees QTcB Int : 495 ms Normal sinus rhythm Left bundle branch block Abnormal ECG No previous ECGs available Confirmed by BAO ORTA, EUFEMIA ([id number]), field map editor VEDA POSADA ([id number]) on 02/25/2025 10:39:13 AM Referred By: Confirmed By: EUFEMIA GORE MD
[2025-02-25 06:22] LABS: AST(SGOT) 25 U/L (<=31); Alanine Aminotransfer ALT/SGPT 20 U/L (<=34); Alkaline Phosphatase 98 U/L (35-104); Anion Gap 12 (5-15); BUN 51 mg/dL (4-19); BUN/Creat Ratio 38.4 RATIO (10-20); Bilirubin, Direct 0.82 mg/dL (0.00-0.30); Calcium,Total 8.7 mg/dL (7.6-11.0); Carbon Dioxide 23.7 mmol/L (21.0-32.0); Chloride 98 mmol/L (98-108); Creatinine, Serum 1.32 mg/dL (0.70-1.20); EST Glomerular Filtration Rate 47 (>60); Estimated Creatinine Clearance 54.58 ml/min (50-250); Globulin 3.1 g/dL (2.2-4.2); Glucose 99 mg/dL (70-99); Potassium 3.9 mmol/L (3.3-5.1); Protein, Total 6.1 g/dL (5.9-8.4); Sodium Level 134 mmol/L (133-145); Total Bilirubin 1.66 mg/dL (0.00-1.30)
[2025-02-25 06:37] LABS: Hemoglobin A1c 9.4 % (<=5.6)
[2025-02-25] MEDS: Pantoprazole Sodium 40 MG in 0.9% Normal Saline (100mL MB+) 100 ML 330 MG IV (09:49)
[2025-02-25 11:28] LABS: Hematocrit 30.5 % (37-47); Hemoglobin 10.2 g/dL (12.0-15.0)
--- NOTE | 2025-02-25 11:30 | CASEMGMT ---
Patient came to PCU from [facility] Rehab Unit. SW met with patient. Introduced self and role at [facility]. SW asked if her plan is to return to the Rehab Unit at discharge. Patient confirmed her plan is to return. Plan: d/c to [facility] Acute Rehab. Patient will require insurance authorization. Milla BASSETT
[2025-02-25 12:04] LABS: Bedside Glucose 103 mg/dL (74-106)
[2025-02-25] MEDS: Bisacodyl 5 MG Tablet 20 MG PO (14:00)
[2025-02-25] MEDS: Polyethylene Glycol 3350 BOWEL PREP PO (16:07)
--- NOTE | 2025-02-25 17:54 | EX.PCM.CON.G ---
HPI Consult Data Date of Consult: 02/25/25 HPI Narrative Reason for Consultation: GI bleed HPI Narrative: KAMILAH HOYT, is a 59 F who was initially hospitalized at [facility] from 02/12-02/21. She presented there with severe volume overload in setting of heart failure exacerbation secondary to medication nonadherence. The hospital course was complicated by CVA leading to impaired mobility. She presented to [facility] with some lightheadedness and dizziness with ambulation and had a bowel movement with dark blood noted around 8 PM. Stat hemoglobin was obtained and was 14.7, stable from previous. However, around 2 AM patient ambulated to the bathroom and became very lightheaded and dizzy, and she had a large dark bloody bowel movement at that time. Nursing staff noted that she looked very pale and her blood pressure was in the 60s over 30s. Rapid response was called at that time. I arrived to her room a few minutes later. She was still sitting on the toilet with 2 nurses with her and appeared very pale. She had some dry heaving episodes at that time as well. She did improve slightly after a few minutes and was able to be shifted from the toilet back into bed. Blood pressure was rechecked and was in the 110s over 50s. She was awake and alert and able to answer my questions with short appropriate responses. Given the significant bloody bowel movements and suspected vasovagal episode, decision was made to admit patient. I was consulted for GI bleed [facility] Medical History Poor dentition Asthma Pulmonary hypertension Nonrheumatic tricuspid valve regurgitation Nonrheumatic mitral valve regurgitation Biatrial enlargement Diastolic dysfunction Left bundle branch block History of meningioma of the brain Obesity (BMI 30.0-34.9) HTN (hypertension) Hyperlipidemia GERD (gastroesophageal reflux disease) Nonischemic cardiomyopathy Chronic HFrEF (heart failure with reduced ejection fraction) Uncontrolled type 2 diabetes mellitus Home Medications ?Medication ?Instructions ?Recorded ?Last Taken ?Type acetaminophen 325 mg tablet (Aphen) 650 mg PO Q4H PRN pain 02/21/25 Unknown History aspirin 81 mg capsule 81 mg PO DAILY heart health 02/21/25 Unknown History atorvastatin 40 mg tablet 40 mg PO DAILY cholesterol 02/21/25 Unknown History bumetanide 1 mg tablet 1 mg PO DAILY fluid retention 02/21/25 Unknown History clopidogrel 75 mg tablet 75 mg PO DAILY Blood thinner 02/21/25 Unknown History empagliflozin 10 mg tablet 10 mg PO DAILY Blood sugar 02/21/25 Unknown History (Jardiance) insulin glargine 100 unit/mL (3 15 unit subcut QPM Blood sugar 02/21/25 Unknown History mL) subcutaneous pen (Lantus Solostar U-100 Insulin) insulin lispro 100 unit/mL 3 unit subcut TID blood sugar 02/21/25 Unknown History subcutaneous pen (Humalog KwikPen (U-100) Insulin) metoprolol succinate 25 mg capsule 25 mg PO BID BP 02/21/25 Unknown History sprinkle, ext. 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 Smoking Status: Never smoker substance use type: does not use ROS Constitutional Constitutional: Denies fatigue, fever(s), poor appetite, weight gain or weight loss Gastrointestinal Gastrointestinal: Denies belching, bloating, change in bowel habits, change in stool character, chewing difficulty, coffee ground emesis, constipation, cramping, diarrhea, dyspepsia, dysphagia, early satiety, excessive flatus, fecal incontinence, heartburn, hematemesis, hematochezia, hemorrhoids, loose stools, melena, nausea, odynophagia, rectal bleeding, tenesmus, vomiting or weight changes Physical Exam Const alert General Appearance: cooperative Orientation / Consciousness: lethargic HEENT normocephalic, head/scalp atraumatic, hearing grossly normal bilaterally and nasal mucous membranes and turbinates normal Eyes PERRL, EOMs intact bilaterally and conjunctivae normal Neck full ROM Chest inspection of chest normal Resp normal respiratory effort, normal air movement, no use of accessory muscles and clear to auscultation bilaterally Cardio regular rate, regular rhythm, no murmurs and peripheral pulses 2+ throughout GI GI Narrative: Abdomen soft, nontender and nondistended on palpation. Normal to mildly hypoactive bowel sounds noted. Back/Spine normal ROM Extremity normal to inspection and no pedal edema Skin no rashes or lesions noted Lab / Micro Data 02/25/25 11:19 02/25/25 04:39 Labs: Laboratory Results - last 24 hr 02/24/25 18:20: Hgb 11.1 L, Hct 33.3 L 02/24/25 23:07: POC Glucose 151 H 02/24/25 23:43: Hgb 10.7 L, Hct 32.1 L 02/25/25 04:39: WBC 8.3, RBC 3.37 L, Hgb 10.2 L, Hct 30.9 L, MCV 91.7, MCH 30.3, MCHC 33.0, RDW Std Deviation 46.5 H, RDW Coeff of Briseida 13.8, Plt Count 224, MPV 12.8 H, PT Cancelled, INR Cancelled, APTT Cancelled, Sodium 134, Potassium 3.9, Chloride 98, Carbon Dioxide 23.7, Anion Gap 12, BUN 51 H, Creatinine 1.32 H, Estim Creat Clear Calc 54.58, Est GFR (MDRD) Non-Af 47 L, BUN/Creatinine Ratio 38.4 H, Glucose 99, Hemoglobin A1c 9.4 H, Calcium 8.7, Total Bilirubin 1.66 H, Direct Bilirubin 0.82 H, AST 25, ALT 20, Alkaline Phosphatase 98, Total Protein 6.1, Albumin 3.0 L, Globulin 3.1 02/25/25 05:06: POC Glucose 101 02/25/25 11:19: Hgb 10.2 L, Hct 30.5 L 02/25/25 11:24: POC Glucose 103 Assessment & Plan Assessment/Plan (1) Lower GI bleed: PLAN: Plan Patient is a 59-year-old female who presented from our inpatient rehab unit for dark bloody bowel movements and presyncopal symptoms. 1. Lower GI bleed ? Admit under inpatient status to PCU. GI consulted. Patient had 2 episodes of significant dark bloody bowel movements while in IPR unit with significant blood pressure drop and presyncopal symptoms. Hemoglobin dropped from 14.[address] abdomen pelvis with IV contrast showed active GI bleed in the proximal descending colon near the splenic flexure. It seems most consistent with diverticular bleed. She will undergo upper lower endoscopy to evaluate upper lower GI tract for angiodysplastic lesions, diverticular lesions and other etiologies for GI bleed. Will monitor hemoglobin every 6 hours. Type and screen ordered as well. Holding home aspirin and Plavix. Charges/Coding Visit Charges Inpatient E&M: 36265 Init Hosp L3
[2025-02-25 18:01] LABS: Bedside Glucose 107 mg/dL (74-106)
[2025-02-25 18:12] LABS: Hematocrit 30.8 % (37-47)
--- NOTE | 2025-02-25 18:42 | PN.HOSP_ITS ---
Reason for Visit Reason for Visit: Diagnoses Gastrointestinal hemorrhage, unspecified (02/24/25) Subjective Subjective Patient was seen and examined today, endoscopy was not able to be carried out today because the patient was not prepped for colonoscopy. She will undergo colonoscopy tomorrow. Patient's hemoglobin this morning was 10.2, her hemoglobin has remained stable today. Objective Data Objective Data Vital Signs: Vital Signs Temp Pulse Resp BP Pulse Ox O2 Del Method O2 Flow Rate 97.8 F 94 19 H 107/65 100 Nasal Cannula 2 02/25/25 17:42 02/25/25 17:42 02/25/25 17:42 02/25/25 17:42 02/25/25 17:42 02/25/25 17:42 02/25/25 17:42 Oxygen Flow Rate (L/min) 2 Oxygen Delivery Method Nasal Cannula Weight: 92.5 kg Body Mass Index (BMI) 31.0 Intake & Output: Intake and Output for Last 24 Hours 02/23/25 02/24/25 02/25/25 23:59 23:59 23:59 Intake Total 1800.83 / 1800.83 910 / 910 Output Total 400 / 400 Balance 1400.83 / 1400.83 910 / 910 Lab / Micro Data 02/25/25 17:30 02/25/25 04:39 Labs: Laboratory Results - last 24 hr 02/24/25 23:07: POC Glucose 151 H 02/24/25 23:43: Hgb 10.7 L, Hct 32.1 L 02/25/25 04:39: WBC 8.3, RBC 3.37 L, Hgb 10.2 L, Hct 30.9 L, MCV 91.7, MCH 30.3, MCHC 33.0, RDW Std Deviation 46.5 H, RDW Coeff of Briseida 13.8, Plt Count 224, MPV 12.8 H, PT Cancelled, INR Cancelled, APTT Cancelled, Sodium 134, Potassium 3.9, Chloride 98, Carbon Dioxide 23.7, Anion Gap 12, BUN 51 H, Creatinine 1.32 H, Estim Creat Clear Calc 54.58, Est GFR (MDRD) Non-Af 47 L, BUN/Creatinine Ratio 38.4 H, Glucose 99, Hemoglobin A1c 9.4 H, Calcium 8.7, Total Bilirubin 1.66 H, D irect Bilirubin 0.82 H, AST 25, ALT 20, Alkaline Phosphatase 98, Total Protein 6.1, Albumin 3.0 L, Globulin 3.1 02/25/25 05:06: POC Glucose 101 02/25/25 11:19: Hgb 10.2 L, Hct 30.5 L 02/25/25 11:24: POC Glucose 103 02/25/25 17:30: Hgb 10.0 L, Hct 30.8 L 02/25/25 17:44: POC Glucose 107 H Physical Exam Const alert, oriented x3 and no apparent distress General Appearance: cooperative, well kempt and well developed Orientation / Consciousness: awake, oriented to person, oriented to place and oriented to time HEENT normocephalic, head/scalp atraumatic and moist oral mucous membranes Eyes PERRL, EOMs intact bilaterally and conjunctivae normal Neck supple, no JVD, thyroid normal and no carotid bruits General: trachea midline Resp normal respiratory effort and clear to auscultation bilaterally Auscultation: Negative for rales, rhonchi or wheezes Cardio regular rate, regular rhythm, no murmurs, no rub and no gallops GI normal to inspection, nondistended, normoactive bowel sounds, soft to palpation, non-tender and non-distended Extremity no clubbing, cyanosis or edema Skin no rashes or lesions noted General Skin Exam: no breakdown Neuro oriented x3, CN's II-XII intact bilaterally and no sensory deficits noted Neuro Narrative: Patient has some dysarthria present, there is some mild right sided weakness. Sensorium / Orientation: awake and alert Psych affect normal Assessment & Plan Assessment/Plan (1) Lower GI bleed: PLAN: Plan 1. Lower GI bleed-etiology unclear at this point, patient will undergo colonoscopy tomorrow, every 6 hour CBCs will be continued for now #2 acute stroke-present on admission-PT and OT will continue to see the patient, complicates care, management, recovery, and prognosis #3 type 2 diabetes-blood sugars will be monitored and sliding scale insulin will be administered as needed #4 cardiomyopathy-etiology unclear, patient's ejection fraction on her echocardiogram was 25 to 30% recently. #5 acute anemia secondary to lower GI bleed-CBC will be monitored, patient does not require transfusion at this time Total clinical time spent by myself addressing the patient's medical issues, reviewing all of her data, and collaborating with patient's care team: 35 minutes Charges/Coding Visit Charges Inpatient E&M: 44187 Subs Hosp L2
[2025-02-25] MEDS: Atorvastatin Calcium 40 MG Tablet PO (21:09)
[2025-02-25 21:25] LABS: Hematocrit 29.7 % (37-47); Hemoglobin 9.8 g/dL (12.0-15.0)
[2025-02-26] VITALS (13 sets, daily range): BP systolic 92–135; BP diastolic 49–64; PULSE 78–85; RESP 15–18; TEMP 36.3–36.9; O2SAT 93–100
[2025-02-26 01:23] LABS: Bedside Glucose 95 mg/dL (74-106)
[2025-02-26 03:44] LABS: Absolute Lymphocyte Count 1.41 X10^3/uL (0.83-4.51); Absolute Neutrophil Count 5.4 X10^3/uL (2.0-7.7); Basophil# 0.04 X10^3/uL; Basophil% 0.5 % (0-1); Eosinophil# 0.14 X10^3/uL; Eosinophils% 1.8 % (0-5); Hematocrit 26.6 % (37-47); Lymphocyte # 1.41 X10^3/ul (0.83-4.51); Lymphocyte % 18.5 % (19-41); Mean Corp Hgb Conc 33.8 g/dL (32-36); Mean Corpuscular Hgb 30.8 pg (27.0-32.0); Mean Corpuscular Volume 91.1 fL (81-99); Mean Platelet Vol. 12.4 fl (6.2-12.0); Monocyte# 0.58 X10^3/uL; Monocyte% 7.6 % (0-10); NRBC Flagged by Analyzer 0 % (0-5); Neutrophil # 5.43 X10^3/uL (2.7-7.7); Neutrophil % 71.1 % (47-70); Platelet Count 208 K/mm3 (150-450); RBC Distribution Width CV 13.8 % (11.6-14.6); RBC Distribution Width SD 46.3 fl (35.1-43.9); Red Blood Count 2.92 M/mm3 (4.2-5.4); White Blood Count 7.6 K/mm3 (4.4-11.0)
[2025-02-26 03:52] LABS: International Normalized Ratio 1.1
[2025-02-26 03:53] LABS: Partial Thromboplast Time 32.3 Seconds (24.1-36.2)
[2025-02-26 05:05] LABS: AST(SGOT) 24 U/L (<=31); Alanine Aminotransfer ALT/SGPT 18 U/L (<=34); Alkaline Phosphatase 93 U/L (35-104); Anion Gap 12 (5-15); BUN 49 mg/dL (4-19); BUN/Creat Ratio 38.3 RATIO (10-20); Bilirubin, Direct 0.99 mg/dL (0.00-0.30); Calcium,Total 8.8 mg/dL (7.6-11.0); Carbon Dioxide 23.2 mmol/L (21.0-32.0); Chloride 99 mmol/L (98-108); Creatinine, Serum 1.27 mg/dL (0.70-1.20); EST Glomerular Filtration Rate 49 (>60); Estimated Creatinine Clearance 56.73 ml/min (50-250); Glucose 86 mg/dL (70-99); Potassium 3.9 mmol/L (3.3-5.1); Sodium Level 134 mmol/L (133-145); Total Bilirubin 1.79 mg/dL (0.00-1.30)
[2025-02-26 06:54] LABS: Bedside Glucose 81 mg/dL (74-106)
[2025-02-26 09:37] LABS: Hematocrit 27.2 % (37-47); Hemoglobin 9.1 g/dL (12.0-15.0)
[2025-02-26] MEDS: Pantoprazole Sodium 40 MG in 0.9% Normal Saline (100mL MB+) 100 ML 330 MG IV (11:08)
--- NOTE | 2025-02-26 11:29 | PCM.PRE.AN2 ---
ASA Classification* ASA Classification ASA Classification: 3 Assessment & Plan Anesthesia* Anesthesia Assessment Anesthesia Assessment: Discussed sedation and/or anesthesia options, risks, benefits, and alternatives with patient/parents/legal guardian/POA. Questions invited. The patient/parents/legal guardian/POA seems to understand and agrees to proceed with anesthesia plan. Reviewed the physical assessment, medical history, allergy history and patient home medications list prior to surgery/procedure/anesthetic and documented any changes. Performed airway and anesthesia risk assessments. Anesthesia Type Anesthesia Type: MAC History Source History Obtained from:: Patient and Chart Anesthesia Focused Assessment* Temperature: 97.8 F Pulse Rate: 81 Blood Pressure: 119/54 Respiratory Rate: 17 Pulse Ox: 100 Oxygen Delivery Method: Nasal Cannula Oxygen Flow Rate (L/min): 2 Airway Assessment Mouth opens: >3 cm Mallampati Score: I Teeth Condition: Loose (Multiple teeth on the bottom are loose.) and Missing (Patient has several missing teeth.) Neck Range of motion (ROM): Full ROM Focused Labs Anesthesia Preop lab: CBC WBC 7.6 K/mm3 (4.4-11.0) 02/26/25 03:27 02/26/25 RBC 2.92 M/mm3 (4.2-5.4) L 02/26/25 03:27 02/26/25 Hgb 9.1 g/dL (12.0-15.0) L 02/26/25 09:20 02/26/25 Hct 27.2 % (37-47) L 02/26/25 09:20 02/26/25 Plt Count 208 K/mm3 (150-450) 02/26/25 03:27 02/26/25 CHEMISTRY Potassium 3.9 mmol/L (3.3-5.1) 02/26/25 03:27 02/26/25 Sodium 134 mmol/L (133-145) 02/26/25 03:27 02/26/25 Magnesium 2.8 mg/dL (1.5-2.2) H 02/22/25 05:39 02/22/25 Phosphorus 4.5 mg/dL (2.7-4.5) 02/22/25 05:39 02/22/25 BUN 49 mg/dL (4-19) H 02/26/25 03:27 02/26/25 Creatinine 1.27 mg/dL (0.70-1.20) H 02/26/25 03:27 02/26/25 Glucose 86 mg/dL (70-99) 02/26/25 03:27 02/26/25 POC Glucose 71 mg/dL (74-106) L 02/26/25 12:20 02/26/25 COAG PT 14.0 SECONDS (11.7-14.9) 02/26/25 03:27 02/26/25 Pre-Assessment Diagnosis/Proposed Procedure Planned Operative Procedure(s): Esophagogastroduodenoscopy. Colonoscopy. 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 When Was Last Pacemaker Check QUESTION #4 FULL TEXT: You/Your Family Experience fever (hyperthermia) with Anesthesia Last Oral Intake Last Oral intake: Last Oral Intake NPO since 00:01 02/25/25 21:51 Meds taken in AM with sips of water? Meds patient instructed to take am of surgery PONV PONV - polymerization engineer: PONV - polymerization engineer Female HX of Motion Sickness HX of N/V After Surgery Non-Smoker Duration of Surgery greater than 60 minutes Number of Risk Factors PONV Score Height & Weight Height & Weight: Anesthesia: Height & Weight Height 5 ft 8 in 02/25/25 21:51 Weight: 92.5 kg 02/25/25 21:51 Body Mass Index (BMI) 31.0 02/25/25 21:51 Respiratory Assessment Respiratory Assessment - polymerization engineer: Respiratory Tract Infection Hx - polymerization engineer Hx Respiratory Tract Infection No 02/25/25 21:51 STOP Sleep Apnea STOP Sleep Apnea - polymerization engineer: STOP Sleep Apnea - polymerization engineer Hx Hypertension Yes 02/25/25 10:11 Hx Sleep Apnea Yes 02/24/25 04:43 CPAP No 02/24/25 04:43 BIPAP No 02/24/25 04:43 Do you snore loudly (louder than talking or can be heard Do you often feel tired/ fatigued/ sleepy during daytime? Has anyone observed you stop breathing during sleep? STOP Results Positive 02/24/25 04:43 QUESTION #5 FULL TEXT : Do you snore loudly (louder than talking or can be heard through closed doors)? 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 Specify any problems Hx of Preganancy in last 3 N/A 02/24/25 04:43 Months Nurse Filling Out Transfusion [place] 02/24/25 04:43 & Questions: Date: 02/24/25 02/24/25 04:43 Time: 04:46 02/24/25 04:43 Patient unable to answer at this time (ie. confused, unrespo /Reproduction History /Reproductive History - polymerization engineer: /Reproductive Hx- polymerization engineer Hx Now No 02/25/25 21:51 Gestational Age (in weeks): EDC: Hx Hx Para Hx Section SAB No 02/25/25 21:51 Active Medications Active Medications: Current Medications Generic Name Dose Route Start Last Admin Trade Name Freq PRN Reason Stop Dose Admin Acetaminophen 650 mg 02/24/25 05:01 Acetaminophen 325 Mg Tablet PO Q6H PRN PRN Pain 1-10 Or Fever>100.7 Atorvastatin Calcium 40 mg 02/24/25 22:00 02/25/25 21:09 Atorvastatin Calcium 40 Mg Tablet PO 40 mg QHS JOVANNY Administration Glucagon 1 mg 02/24/25 06:16 Glucagon 1 Mg/Ml Syringe IM X1 PRN Hypoglycemia Protocol Sodium Chloride 100 mls @ 15 mls/hr 02/24/25 04:44 IV .Q6H40M PRN Saline Flush Sodium Chloride 100 mls @ 15 mls/hr 02/24/25 04:44 IV .Q6H40M PRN Additional IVPB Infusion Pantoprazole Sodium 40 mg/ 110 mls @ 330 mls/hr 02/25/25 10:00 02/26/25 11:08 Sodium Chloride IV 330 mls/hr Q24 JOVANNY Administration Dextrose 250 mls @ 0 mls/hr 02/24/25 06:16 Dextrose 10%-Water IV .Q0M PRN HYPOGLYCEMIA Protocol As Directed Insulin Human Lispro 0 unit 02/24/25 12:00 02/26/25 06:57 Insulin Lispro 100 Unit/Ml Insuln.Pen SC Not Given Q6 JOVANNY Protocol Melatonin 3 mg 02/24/25 05:01 Melatonin 3 Mg Tablet PO QHS PRN PRN INSOMNIA Ondansetron HCl 4 mg 02/24/25 05:01 Ondansetron 4 Mg/2 Ml Vial IV Q8H PRN PRN NAUSEA/VOMITING Sodium Chloride 10 - 40 ml 02/24/25 04:44 0.9% Saline Lock 10 Ml Syringe IV UD PRN SALINE FLUSH PFSH Medical History Poor dentition Asthma Pulmonary hypertension Nonrheumatic tricuspid valve regurgitation Nonrheumatic mitral valve regurgitation Biatrial enlargement Diastolic dysfunction Left bundle branch block History of meningioma of the brain Obesity (BMI 30.0-34.9) HTN (hypertension) Hyperlipidemia GERD (gastroesophageal reflux disease) Nonischemic cardiomyopathy Chronic HFrEF (heart failure with reduced ejection fraction) Uncontrolled type 2 diabetes mellitus Home Medications ?Medication ?Instructions ?Recorded ?Last Taken ?Type acetaminophen 325 mg tablet (Aphen) 650 mg PO Q4H PRN pain 02/21/25 Unknown History aspirin 81 mg capsule 81 mg PO DAILY heart health 02/21/25 Unknown History atorvastatin 40 mg tablet 40 mg PO DAILY cholesterol 02/21/25 Unknown History bumetanide 1 mg tablet 1 mg PO DAILY fluid retention 02/21/25 Unknown History clopidogrel 75 mg tablet 75 mg PO DAILY Blood thinner 02/21/25 Unknown History empagliflozin 10 mg tablet 10 mg PO DAILY Blood sugar 02/21/25 Unknown History (Jardiance) insulin glargine 100 unit/mL (3 15 unit subcut QPM Blood sugar 02/21/25 Unknown History mL) subcutaneous pen (Lantus Solostar U-100 Insulin) insulin lispro 100 unit/mL 3 unit subcut TID blood sugar 02/21/25 Unknown History subcutaneous pen (Humalog KwikPen (U-100) Insulin) metoprolol succinate 25 mg capsule 25 mg PO BID BP 02/21/25 Unknown History sprinkle, ext. 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
[2025-02-26 12:37] LABS: Bedside Glucose 71 mg/dL (74-106)
--- NOTE | 2025-02-26 15:15 | COLBX_PTH ---
PATIENT: KAMILAH HOYT LOC: [facility] U#:[id number] AGE/SX: 59/F ROOM: [facility] RE02/24/[address]: Dr. Abraham Kerr, : 1965 BED: 1 DIS: 02/27/2025 SPEC #: [id number] RECD: 02/27/25 09:37 STATUS: BERNARDO REOdalis #: [id number] JAMI: 02/26/25 15:[address]: Jonh Santos DEPT: SURGICAL PATHOLOGY RECD BY: Royal Almanzar ENTERED: 02/27/25 09:37 SP TYPE: COLON BX OTHR DR: Dr. Chance Schmitt, DO Dr. Abraham Kerr, DO MD Dr. Jonh Lance, DO No Primary Care Phys Tissues: A - Esophagus, NOS B - Gastric mucous membrane C - Duodenum, NOS D - Ascending colon Procedures: Immunohistochemical Stains Surgery Specimen Level IV Comments: @ Ordering doctor for SUIV edited from to @ by MARIA LUZ at 02/27/25 1554 @ Submitting doctor edited from to @ by MARIA LUZ at 02/27/25 1556 HEADER OPERATION: Colonoscopy, EGD, biopsy, tattooing, polypectomy PRE-OP DIAGNOSIS: Lower GI bleed TISSUE SUBMITTED: A- Distal esophagus, B- Gastric body, C- Duodenum, D- Ascending colon polyp MICROSCOPIC DIAGNOSIS A. Distal esophagus, biopsy: * Columnar mucosa with pancreatic acinar metaplasia, negative for goblet cell metaplasia. * Scant squamous mucosa with reactive changes. * Negative for dysplasia. B. Stomach, body, biopsy: * Oxyntic mucosa with no specific pathologic change. * No Helicobacter-like organisms seen (H&E). C. Small bowel, duodenum, biopsy: * Normal villous architecture with Sonu gland hyperplasia. * Negative for increased intraepithelial lymphocytes. D. Ascending colon, polyp, biopsy: * Tubulovillous adenoma with prolapse changes, multiple fragments. MICROSCOPIC DESCRIPTION Slides are reviewed. GROSS DESCRIPTION A. Received in formalin in a container labeled with the patient's name, date of , and distal esophagus is a 0.6 x 0.3 x 0.2 cm fragment of pope-pink mucosal tissue. Submitted in toto in A1. B. Received in formalin in a container labeled with the patient's name, date of , and gastric body is a 0.6 x 0.3 x 0.2 cm fragment of pope-pink mucosal tissue. Submitted in toto in B1. C. Received in formalin in a container labeled with the patient's name, date of , and duodenum is a 0.5 x 0.3 x 0.3 cm fragment of pope-pink mucosal tissue. Submitted in toto in C1. D. Received in formalin in a container labeled with the patient's name, date of , and ascending colon polyp are 2 pope-pink polypoid portions of mucosal tissue measuring 1.6 x 1.5 x 1.2 cm and 1.5 x 1.3 x 1.1 cm. No margin is identified on either fragment. Each is sectioned to reveal pope-pink and friable cut surfaces. Submitted entirely:D1-2. Larger polypD3-4. Smaller polyp [facility] 02/26/2025 CPT:46730w4,27860
[2025-02-26] MEDS: Ipratropium/Albuterol Sulfate 3 ML AMPUL.NEB INHALATION (15:30)
--- NOTE | 2025-02-26 15:52 | PCM.PN.BLA ---
Progress Note Patient completed colonoscopy prep last night. She is for EGD and colonoscopy today. Physical Exam Const alert, oriented x3, no apparent distress and healthy appearing General Appearance: cooperative GI normal to inspection, nondistended, normoactive bowel sounds, soft to palpation, non-tender and non-distended Percussion: normal to percussion Rectal Exam: deferred Assessment & Plan Assessment/Plan (1) Lower GI bleed: PLAN: Plan Patient is a 59-year-old female who presented from our inpatient rehab unit for dark bloody bowel movements and presyncopal symptoms. 1. Lower GI bleed ? Admit under inpatient status to PCU. GI consulted. Patient had 2 episodes of significant dark bloody bowel movements while in IPR unit with significant blood pressure drop and presyncopal symptoms. Hemoglobin dropped from 14.[address] abdomen pelvis with IV contrast showed active GI bleed in the proximal descending colon near the splenic flexure. It seems most consistent with diverticular bleed. She will undergo upper lower endoscopy to evaluate upper lower GI tract for angiodysplastic lesions, diverticular lesions and other etiologies for GI bleed. Will monitor hemoglobin every 6 hours. Type and screen ordered as well. Holding home aspirin and Plavix. Visit Charges Inpatient E&M: 25430 Subs Hosp L3
--- NOTE | 2025-02-26 17:00 | PCM.POST.ANE ---
Anesthesia: Postop Eval I Current Vital Signs Temperature: 97.5 F Pulse Rate: 82 Blood Pressure: 92/49 Respiratory Rate: 18 Pulse Ox: 96 Oxygen Delivery Method: Room Air Assessment Airway patent: Yes Spontaneous unlabored respirations: Yes Mental status: Awake nausea: No Vomiting: No Anesthesia Complication: No Fluid Hydration Crystalloid volume administer (ml): 0 Total IV fluid infused: 0 Progress Note Anesthesia document: Postop Eval 1 completed: Yes
--- NOTE | 2025-02-26 17:46 | OP.COLON_ITS ---
Patient Name: Kelsie Fabian Procedure Date: 02/26/2025 4:02 PM Date of : 1965 Age: 59 Procedure: Colonoscopy Indications: Hematochezia Providers: Jonh Santos DO Medicines: Monitored Anesthesia Care Patient Profile: This is a 59 year old female. Refer to note in patient chart for documentation of history and physical. Last Colonoscopy: date unknown. Unable to locate last colonoscopy report. Complications: No immediate complications. Procedure: Pre-Anesthesia Assessment: - Prior to the procedure, a History and Physical was performed, and patient medications and allergies were reviewed. The patient is competent. The risks and benefits of the procedure and the sedation options and risks were discussed with the patient. All questions were answered and informed consent was obtained. Patient identification and proposed procedure were verified by the physician in the pre-procedure area. Mental Status Examination: alert and oriented. Airway Examination: normal oropharyngeal airway and neck mobility. Respiratory Examination: clear to auscultation. CV Examination: normal. Prophylactic Antibiotics: The patient does not require prophylactic antibiotics. Prior Anticoagulants: The patient has taken no anticoagulant or antiplatelet agents except for NSAID medication. ASA Grade Assessment: II - A patient with mild systemic disease. After reviewing the risks and benefits, the patient was deemed in satisfactory condition to undergo the procedure. The anesthesia plan was to use monitored anesthesia care (MAC). Immediately prior to administration of medications, the patient was re-assessed for adequacy to receive sedatives. The heart rate, respiratory rate, oxygen saturations, blood pressure, adequacy of pulmonary ventilation, and response to care were monitored throughout the procedure. The physical status of the patient was re-assessed after the procedure. After I obtained informed consent, the scope was passed under direct vision. Throughout the procedure, the patient's blood pressure, pulse, and oxygen saturations were monitored continuously. The Colonoscope was introduced through the anus and advanced to the cecum, identified by appendiceal orifice and ileocecal valve. The colonoscopy was performed without difficulty. The patient tolerated the procedure well. The quality of the bowel preparation was fair. The ileocecal valve, appendiceal orifice, and rectum were photographed. Scope In: 4:23:39 PM Scope Withdrawal Time 0 hours 22 minutes 53 seconds Scope Out: 4:50:48 PM Total Procedure Duration Time 0 hours 27 minutes 9 seconds Findings: The perianal and digital rectal examinations were normal. Localized moderate inflammation characterized by friability and granularity was found in the descending colon and at the splenic flexure. Multiple small and large-mouthed diverticula were found in the recto-sigmoid colon, sigmoid colon, descending colon, splenic flexure, transverse colon and hepatic flexure. To stop active bleeding, one hemostatic clip was successfully placed. Clip loom changeover operator: [employer]. There was no bleeding at the end of the procedure. A polypoid non-obstructing large mass was found in the ascending colon. The mass was non-circumferential. The mass measured four cm in length. In addition, its diameter measured fifteen mm. No bleeding was present. The polyp was removed with a saline injection-lift technique using a cold snare. Resection and retrieval were complete. To prevent bleeding after the polypectomy, two hemostatic clips were successfully placed. Clip loom changeover operator: [employer]. There was no bleeding at the end of the procedure. Area was tattooed with an injection of 1 mL of Natalie ink. Stool was found in the rectum, in the recto-sigmoid colon, in the sigmoid colon, in the descending colon and in the cecum. Impression: - Preparation of the colon was fair. - Localized moderate inflammation was found in the descending colon and at the splenic flexure secondary to ischemic colitis. - Diverticulosis in the recto-sigmoid colon, in the sigmoid colon, in the descending colon, at the splenic flexure, in the transverse colon and at the hepatic flexure. Clip was placed. Clip loom changeover operator: [employer]. - Rule out malignancy, tumor in the ascending colon. Complete removal was accomplished. Clips were placed. Clip loom changeover operator: [employer]. Tattooed. - Stool in the rectum, in the recto-sigmoid colon, in the sigmoid colon, in the descending colon and in the cecum. Recommendation: - Discharge patient to home. - Resume previous diet. - Continue present medications. - Await pathology results. - Repeat colonoscopy for surveillance based on pathology results. Procedure Code(s): --- Professional --- 30330, 59, Colonoscopy, flexible; with control of bleeding, any method 47249, Colonoscopy, flexible; with removal of tumor(s), polyp(s), or other lesion(s) by snare technique 98938, 59, Colonoscopy, flexible; with directed submucosal injection(s), any substance CPT copyright 2021 [employer]. All rights reserved. The codes documented in this report are preliminary and upon head cager review may be revised to meet current compliance requirements. Jonh Santos DO 02/26/2025 5:46:35 PM This report has been signed electronically. Number of Addenda: 0 Note Initiated On: 02/26/2025 4:02 PM
--- NOTE | 2025-02-26 17:47 | OP.CCLET_ITS ---
02/27/2025 No Primary Care Physician Re : Colonoscopy procedure for Kelsie Fabian Dear Care Physician This procedure was performed on Wednesday, February 26, 2025. My impressions and recommendations are as follows: Impressions : - Preparation of the colon was fair. - Localized moderate inflammation was found in the descending colon and at the splenic flexure secondary to ischemic colitis. - Diverticulosis in the recto-sigmoid colon, in the sigmoid colon, in the descending colon, at the splenic flexure, in the transverse colon and at the hepatic flexure. Clip was placed. Clip trial attorney: [employer]. - Rule out malignancy, tumor in the ascending colon. Complete removal was accomplished. Clips were placed. Clip trial attorney: [employer]. Tattooed. - Stool in the rectum, in the recto-sigmoid colon, in the sigmoid colon, in the descending colon and in the cecum. Recommendations : - Discharge patient to home. - Resume previous diet. - Continue present medications. - Await pathology results. - Repeat colonoscopy for surveillance based on pathology results. My findings are described in the full procedure note, which is enclosed. If I can be of further assistance, please feel free to contact me at . Sincerely, Jonh Santos, 02/26/2025 5:46:35 PM This report has been signed electronically.
--- NOTE | 2025-02-26 17:56 | OP.EGD_ITS ---
Patient Name: Kelsie Fabian Procedure Date: 02/26/2025 4:23 PM Date of : 1965 Age: 59 Procedure: Upper GI endoscopy Indications: Epigastric abdominal pain, Abdominal pain in the left upper quadrant Providers: Jonh Santos DO Medicines: Monitored Anesthesia Care Patient Profile: This is a 59 year old female. Refer to note in patient chart for documentation of history and physical. Patient has symptoms of acute epigastric abdominal pain. Complications: No immediate complications. Procedure: Pre-Anesthesia Assessment: - Prior to the procedure, a History and Physical was performed, and patient medications and allergies were reviewed. The patient is competent. The risks and benefits of the procedure and the sedation options and risks were discussed with the patient. All questions were answered and informed consent was obtained. Patient identification and proposed procedure were verified by the physician in the pre-procedure area. Mental Status Examination: alert and oriented. Airway Examination: normal oropharyngeal airway and neck mobility. Respiratory Examination: clear to auscultation. CV Examination: normal. Prophylactic Antibiotics: The patient does not require prophylactic antibiotics. Prior Anticoagulants: The patient has taken no anticoagulant or antiplatelet agents except for NSAID medication. ASA Grade Assessment: II - A patient with mild systemic disease. After reviewing the risks and benefits, the patient was deemed in satisfactory condition to undergo the procedure. The anesthesia plan was to use monitored anesthesia care (MAC). Immediately prior to administration of medications, the patient was re-assessed for adequacy to receive sedatives. The heart rate, respiratory rate, oxygen saturations, blood pressure, adequacy of pulmonary ventilation, and response to care were monitored throughout the procedure. The physical status of the patient was re-assessed after the procedure. After obtaining informed consent, the endoscope was passed under direct vision. Throughout the procedure, the patient's blood pressure, pulse, and oxygen saturations were monitored continuously. The Colonoscope was introduced through the mouth, and advanced to the second part of duodenum. The upper GI endoscopy was accomplished without difficulty. The patient tolerated the procedure well. Scope In: 4:16:57 PM Scope Out: 4:19:21 PM Total Procedure Duration Time 0 hours 2 minutes 24 seconds Findings: The Z-line was irregular and was found 40 cm from the incisors. Biopsies were taken with a cold forceps for histology. Verification of patient identification for the specimen was done. Estimated blood loss was minimal. A small hiatal hernia was present. Localized moderately erythematous mucosa without bleeding was found in the gastric body. Biopsies were taken with a cold forceps for histology. Verification of patient identification for the specimen was done. Estimated blood loss was minimal. Biopsies were taken with a cold forceps for Helicobacter pylori testing. Verification of patient identification for the specimen was done. Estimated blood loss was minimal. Patchy mildly erythematous mucosa without active bleeding and with no stigmata of bleeding was found in the duodenal bulb, in the second portion of the duodenum and in the third portion of the duodenum. Biopsies were taken with a cold forceps for histology. Verification of patient identification for the specimen was done. Estimated blood loss was minimal. Impression: - Z-line irregular, 40 cm from the incisors. Biopsied. - Small hiatal hernia. - Erythematous mucosa in the gastric body. Biopsied. - Erythematous duodenopathy. Biopsied. Recommendation: - [facility]. - Resume previous diet. - Continue present medications. - Await pathology results. Procedure Code(s): --- Professional --- 71995, Esophagogastroduodenoscopy, flexible, transoral; with biopsy, single or multiple CPT copyright 2021 [employer]. All rights reserved. The codes documented in this report are preliminary and upon lens mounter review may be revised to meet current compliance requirements. Jonh Santos DO 02/26/2025 5:55:47 PM This report has been signed electronically. Number of Addenda: 0 Note Initiated On: 02/26/2025 4:23 PM
--- NOTE | 2025-02-26 17:56 | OP.CCLET_ITS ---
02/27/2025 No Primary Care Physician Re : Upper GI endoscopy procedure for Kelsie Fabian Dear Care Physician This procedure was performed on Wednesday, February 26, 2025. My impressions and recommendations are as follows: Impressions : - Z-line irregular, 40 cm from the incisors. Biopsied. - Small hiatal hernia. - Erythematous mucosa in the gastric body. Biopsied. - Erythematous duodenopathy. Biopsied. Recommendations : - [facility]. - Resume previous diet. - Continue present medications. - Await pathology results. My findings are described in the full procedure note, which is enclosed. If I can be of further assistance, please feel free to contact me at . Sincerely, Jonh Santos, 02/26/2025 5:55:47 PM This report has been signed electronically.
--- NOTE | 2025-02-26 18:01 | PCM.PN.HOSP ---
Reason for Visit Reason for Visit: Diagnoses Gastrointestinal hemorrhage, unspecified (02/24/25) Subjective Subjective Patient was seen and examined today, she underwent an EGD and colonoscopy today, colonoscopy showed evidence of ischemic colitis, there was also a small growth in the colon that was removed and sent for pathology. EGD did not show any evidence of bleeding although there was some erythematous mucosa noted. Objective Data Objective Data Vital Signs: Vital Signs Temp Pulse Resp BP Pulse Ox O2 Del Method O2 Flow Rate 97.7 F L 78 16 116/58 L 95 Room Air 2 02/26/25 17:51 02/26/25 17:51 02/26/25 17:51 02/26/25 17:51 02/26/25 17:51 02/26/25 17:51 02/26/25 14:26 Oxygen Flow Rate (L/min) 2 Oxygen Delivery Method Room Air Weight: 92.5 kg Body Mass Index (BMI) 31.0 Intake & Output: Intake and Output for Last 24 Hours 02/24/25 02/25/25 02/26/25 23:59 23:59 23:59 Intake Total 1800.83 / 1800.83 910 / 910 110 / 110 Output Total 400 / 400 Balance 1400.83 / 1400.83 910 / 910 110 / 110 Lab / Micro Data 02/26/25 09:20 02/26/25 03:27 Labs: Laboratory Results - last 24 hr 02/25/25 04:39: PT 13.5, INR 1.0, APTT 29.1 02/25/25 17:30: Hgb 10.0 L, Hct 30.8 L 02/25/25 17:44: POC Glucose 107 H 02/25/25 20:45: Hgb 9.8 L, Hct 29.7 L 02/26/25 01:04: POC Glucose 95 02/26/25 03:27: WBC 7.6, RBC 2.92 L, Hgb 9.0 L, Hct 26.6 L, MCV 91.1, MCH 30.8, MCHC 33.8, RDW Std Deviation 46.3 H, RDW Coeff of Briseida 13.8, Plt Count 208, MPV 12.4 H, Immature Gran % (Auto) 0.500, Neut % (Auto) 71.1 H, Lymph % (Auto) 18.5 L, Garvin % (Auto) 7.6, Eos % (Auto) 1.8, Baso % (Auto) 0.5, Absolute Neuts (auto) 5.4, Absolute Lymphs (auto) 1.41, Nucleated RBC % 0, PT 14.0, INR 1.1, APTT 32.3, Sodium 134, Potassium 3.9, Chloride 99, Carbon Dioxide 23.2, Anion Gap 12, BUN 49 H, Creatinine 1.27 H, Estim Creat Clear Calc 56.73, Est GFR (MDRD) Non-Af 49 L, BUN/Creatinine Ratio 38.3 H, Glucose 86, Calcium 8.8, Total Bilirubin 1.79 H, Direct Bilirubin 0.99 H, AST 24, ALT 18, Alkaline Phosphatase 93, Total Protein 6.0, Albumin 3.0 L, Globulin 3.0 02/26/25 06:29: POC Glucose 81 02/26/25 09:20: Hgb 9.1 L, Hct 27.2 L 02/26/25 12:20: POC Glucose 71 L Physical Exam Narrative alert, oriented x3 and no apparent distress General Appearance: cooperative, well kempt and well developed Orientation / Consciousness: awake, oriented to person, oriented to place and oriented to time HEENT normocephalic, head/scalp atraumatic and moist oral mucous membranes Eyes PERRL, EOMs intact bilaterally and conjunctivae normal Neck supple, no JVD, thyroid normal and no carotid bruits General: trachea midline Resp normal respiratory effort and clear to auscultation bilaterally Auscultation: Negative for rales, rhonchi or wheezes Cardio regular rate, regular rhythm, no murmurs, no rub and no gallops GI normal to inspection, nondistended, normoactive bowel sounds, soft to palpation, non-tender and non-distended Extremity no clubbing, cyanosis or edema Skin no rashes or lesions noted General Skin Exam: no breakdown Neuro oriented x3, CN's II-XII intact bilaterally and no sensory deficits noted Neuro Narrative: Patient has some dysarthria present, there is some mild right sided weakness. Sensorium / Orientation: awake and alert Psych affect normal Assessment & Plan Assessment/Plan (1) Lower GI bleed: PLAN: Plan 1. Lower GI bleed-secondary to ischemic colitis-H&H will be rechecked tomorrow, we are currently waiting approval for the patient to return to the rehab unit for continued PT OT and speech therapy. #2 acute stroke-present on admission-PT and OT will continue to see the patient, complicates care, management, recovery, and prognosis #3 type 2 diabetes-blood sugars will be monitored and sliding scale insulin will be administered as needed #4 cardiomyopathy-etiology unclear, patient's ejection fraction on her echocardiogram was 25 to 30% recently. #5 acute anemia secondary to lower GI bleed-CBC will be monitored, patient does not require transfusion at this time #6 possible infectious colitis-I talked to gastroenterology and they recommended the patient be placed on an antibiotic due to the fact the evidence of purulent material on the colonoscopy. Patient will be placed on Augmentin 875 1 twice daily Total clinical time spent by myself addressing the patient's medical issues, reviewing all of her data, and collaborating with patient's care team: 35 minutes Charges/Coding Visit Charges Inpatient E&M: 95342 Subs Hosp L2
[2025-02-26 18:32] LABS: Bedside Glucose 68 mg/dL (74-106)
[2025-02-26 18:43] LABS: Hematocrit 30.6 % (37-47)
--- NOTE | 2025-02-26 20:27 | POSTOPAN2_ITS ---
Anesthesia Postop Eval I Sum Postop Eval Completion status Anesthesia document: Postop Eval 1 completed: Yes Anesthesia Postop Eval I Summary Anesthesia Postop Eval I Summary: Anesthesia Postop Eval I: Assessment Summary Airway patent Yes 02/26/25 17:01 TRAVEL SALES CONSULTANT.[email or web address] Spontaneous unlabored Yes 02/26/25 17:01 TRAVEL SALES CONSULTANT.HBARR respirations Mental status Awake 02/26/25 17:01 TRAVEL SALES CONSULTANT.HBARR nausea No 02/26/25 17:01 TRAVEL SALES CONSULTANT.HBARR Vomiting No 02/26/25 17:01 TRAVEL SALES CONSULTANT.HBARR Anesthesia Postop Eval I: Fluid Summary Crystalloid volume administer 0 02/26/25 17:01 TRAVEL SALES CONSULTANT.HBARR (ml) Colloids volume administered ( ml) Blood Product volume administered (ml) Total IV fluid infused 0 02/26/25 17:01 TRAVEL SALES CONSULTANT.HBARR Anesthesia Postop Eval I: Summary Notes Anesthesia Complication No 02/26/25 17:01 TRAVEL SALES CONSULTANT.HBARR Anesthesia Complication Comment: Post-operative progress note Anesthesia: Postop Eval II Evaluation Mental status: Awake and Calm Pain Level: 0 nausea: No Vomiting: No Complications Anesthesia Complication: No
--- NOTE | 2025-02-26 20:27 | PCM.POSTANE2 ---
Anesthesia Postop Eval I Sum Postop Eval Completion status Anesthesia document: Postop Eval 1 completed: Yes Anesthesia Postop Eval I Summary Anesthesia Postop Eval I Summary: Anesthesia Postop Eval I: Assessment Summary Airway patent Yes 02/26/25 17:01 MARKETING OPERATIONS SPECIALIST.HBARR Spontaneous unlabored Yes 02/26/25 17:01 MARKETING OPERATIONS SPECIALIST.HBARR respirations Mental status Awake 02/26/25 17:01 MARKETING OPERATIONS SPECIALIST.HBARR nausea No 02/26/25 17:01 MARKETING OPERATIONS SPECIALIST.HBARR Vomiting No 02/26/25 17:01 MARKETING OPERATIONS SPECIALIST.HBARR Anesthesia Postop Eval I: Fluid Summary Crystalloid volume administer 0 02/26/25 17:01 MARKETING OPERATIONS SPECIALIST.HBARR (ml) Colloids volume administered ( ml) Blood Product volume administered (ml) Total IV fluid infused 0 02/26/25 17:01 MARKETING OPERATIONS SPECIALIST.HBARR Anesthesia Postop Eval I: Summary Notes Anesthesia Complication No 02/26/25 17:01 MARKETING OPERATIONS SPECIALIST.HBARR Anesthesia Complication Comment: Post-operative progress note Anesthesia: Postop Eval II Evaluation Mental status: Awake and Calm Pain Level: 0 nausea: No Vomiting: No Complications Anesthesia Complication: No
[2025-02-26] MEDS: SACUBITRIL/VALSARTAN 49-51 MG TABLET 1 EACH PO (21:21)
[2025-02-26] MEDS: Atorvastatin Calcium 40 MG Tablet PO (21:22)
[2025-02-26] MEDS: Amox/Clavulanate 875 MG Tablet PO (21:22)
[2025-02-27 00:21] LABS: Bedside Glucose 113 mg/dL (74-106)
[2025-02-27 03:15] VITALS: BP 119/61; PULSE 78; RESP 16; TEMP 36.5; O2SAT 95
[2025-02-27 05:24] LABS: Hematocrit 26.7 % (37-47); Hemoglobin 8.9 g/dL (12.0-15.0)
[2025-02-27 06:09] LABS: Bedside Glucose 101 mg/dL (74-106)
[2025-02-27 09:15] VITALS: BP 146/44; PULSE 86; RESP 18; TEMP 36.6; O2SAT 95
[2025-02-27] MEDS: Pantoprazole Sodium 40 MG Tablet PO (09:31)
[2025-02-27] MEDS: SACUBITRIL/VALSARTAN 49-51 MG TABLET 1 EACH PO (09:31)
[2025-02-27] MEDS: Amox/Clavulanate 875 MG Tablet PO (09:31)
[2025-02-27 10:47] VITALS: O2SAT 93
[2025-02-27 11:42] LABS: Bedside Glucose 223 mg/dL (74-106)
[2025-02-27] MEDS: Insulin Lispro 100 UNIT/ML INSULN.PEN SC ×2 (12:09→17:08)
[2025-02-27 15:00] VITALS: BP 134/66; PULSE 86; RESP 16; TEMP 36.6; O2SAT 95
--- NOTE | 2025-02-27 16:04 | PCM.TXEXTCAR ---
Diet Diet Order/Speech Therapy: 02/27/25 16:03 Diet: Consistent Carb - Calorie Controlled Food consistency:: Regular Liquid Consistency:: Regular/Thin Dietary Modifications:: Cardiac / Heart Healthy Diet Comments: no reds or purples How many daily calories?: 2000 calorie Routine Orders/Code Status Routine Lab Work: CBC (on 03/02/25) Code Status: Full Code DC O2, CPAP, BIPAP needs Home O2 Discharge instructions: No Therapies Weight Bearing: Full weight bearing Physical Therapy: Eval and Treat Occupational Therapy: Eval and Treat Speech Therapy: Eval and Treat Problem/Diagnosis (1) Lower GI bleed: Status: Acute Code(s): K92.2 - Gastrointestinal hemorrhage, unspecified Plan 1. Lower GI bleed-secondary to ischemic colitis-H&H will be rechecked tomorrow, we are currently waiting approval for the patient to return to the rehab unit for continued PT OT and speech therapy. #2 acute stroke-present on admission-PT and OT will continue to see the patient, complicates care, management, recovery, and prognosis #3 type 2 diabetes-blood sugars will be monitored and sliding scale insulin will be administered as needed #4 cardiomyopathy-etiology unclear, patient's ejection fraction on her echocardiogram was 25 to 30% recently. #5 acute anemia secondary to lower GI bleed-CBC will be monitored, patient does not require transfusion at this time #6 possible infectious colitis-I talked to gastroenterology and they recommended the patient be placed on an antibiotic due to the fact the evidence of purulent material on the colonoscopy. Patient will be placed on Augmentin 875 1 twice daily Total clinical time spent by myself addressing the patient's medical issues, reviewing all of her data, and collaborating with patient's care team: 35 minutes Allergies/Procedures Done in Hospital Allergies No Known Allergies Allergy (Verified 02/21/25 19:08) Procedures: Colonoscopy and EGD Type of Care/Length of Stay Estimated LOS: Convalescent Care Less Than 30 days Type of Care Needed: Acute Rehab Rehab Potential: Good Prognosis: Good Additional Orders/Day of Discharge H&P will serve as current which was dated: 02/24/25 Day of Discharge: 02/27/25 Dietary and Speech Recommendations Dietitian Recommendations/Changes: Will change diet to 2000 calorie/consistent carbohydrate; cardiac. ONS as needed if PO regresses at meals. Discharge Plan Admission Admit Date/Time: 02/24/25 04:56 Primary Reason for Your Visit: Lower GI bleed secondary to ischemic colitis, diverticulitis Attending Provider: Abraham Kerr Primary Care Provider: Care Physician,No Primary Consulting Providers: Danielle,Jonh; Chance Schmitt; Jamie Schwartz Discharge Orders/Prescriptions Prescriptions: New acetaminophen 325 mg Tablet 650 mg PO Q6H PRN PRN (Reason: Pain 1-10 Or Fever>100.7) Qty: 0 0RF pantoprazole 40 mg Tablet,Delayed Release (Dr/Ec) 40 mg PO DAILY Qty: 0 0RF amoxicillin-pot clavulanate 875-125 mg Tablet 1 tab PO BID Qty: 14 0RF Rx Instructions: Administer for 7 days then discontinue-start 02/28/25 insulin lispro [Humalog KwikPen Insulin] 100 unit/mL Insulin Pen See Protocol subcut Q6 Qty: 0 0RF Protocol: 3. Sliding Scale Insulin Med Dosing Condition: 150-189 mg/dl = 1 unit Condition: 190-229 mg/dl = 2 units Condition: 230-269 mg/dl = 3 units Condition: 270-309 mg/dl = 4 units Condition: 310-349 mg/dl = 5 units Condition: 350-399 mg/dl = 6 units Condition: 400-449 mg/dl = 7 units Condition: Greater than 449 call physician Protocol Text: Suggested for: - Patients on Total Daily Insulin Dose of 37-55 units - Obese, infected, or steroid patients MEDIUM DOSING ALGORITHIM sacubitril-valsartan [Entresto] 49-51 mg Tablet 1 tab PO BID Qty: 0 0RF Continued Jardiance 10 mg tablet 10 mg PO DAILY aspirin 81 mg capsule 81 mg PO DAILY atorvastatin 40 mg tablet 40 mg PO DAILY bumetanide 1 mg tablet 1 mg PO DAILY clopidogrel 75 mg tablet 75 mg PO DAILY Patient Comments: Duration-21 days from discharged paperwork from [facility]? insulin glargine [Lantus Solostar U-100 Insulin] 100 unit/mL (3 mL) insulin pen 15 unit subcut QPM metoprolol succinate 25 mg capsule,sprinkle,ER 24hr 25 mg PO BID Discontinued insulin lispro [Humalog KwikPen Insulin] 100 unit/mL insulin pen 3 unit subcut TID sacubitril-valsartan [Entresto] 97-103 mg tablet 0.5 tab PO BID acetaminophen [Aphen] 325 mg tablet 650 mg PO Q4H PRN (Reason: pain) omeprazole 20 mg capsule,delayed release(DR/EC) 20 mg PO DAILY Referrals / Follow Up: Care Physician,No Primary [Primary Care Provider] - Disposition Disposition (needs filled in before D/C Order can be placed): Inpatient Rehab Unit/Facility
--- NOTE | 2025-02-27 16:21 | DS.PCM_ITS ---
Providers Date of Admission: 02/24/25 Date of Discharge: 02/27/25 Primary Care Physician: Taryn Primary Care Phys Consultations 02/24/25 06:14 Consult: Gastroenterology Routine Consulting Provider: Jonh Santos Reason for Consult: lower GI bleed possibly diverticular EMERGENT Consult: No MD Notified: Yes Date Notified: 02/24/25 Time Notified: 06:14 Method of Notification: Text Reason For Visit: DARK BLOODY STOOLS WITH PRESYNCOPE Diagnosis Discharge Diagnosis (1) Lower GI bleed: Status: Acute Code(s): K92.2 - Gastrointestinal hemorrhage, unspecified Plan 1. Lower GI bleed-secondary to ischemic colitis-H&H will be rechecked tomorrow, we are currently waiting approval for the patient to return to the rehab unit for continued PT OT and speech therapy. #2 acute stroke-present on admission-PT and OT will continue to see the patient, complicates care, management, recovery, and prognosis #3 type 2 diabetes-blood sugars will be monitored and sliding scale insulin will be administered as needed #4 cardiomyopathy-etiology unclear, patient's ejection fraction on her echocardiogram was 25 to 30% recently. #5 acute anemia secondary to lower GI bleed-CBC will be monitored, patient does not require transfusion at this time #6 Diverticulitis Total clinical time spent by myself addressing the patient's medical issues, reviewing all of her data, and collaborating with patient's care team: 35 minutes Medications at Discharge Home Medications aspirin 81 mg capsule 81 mg PO DAILY heart health 02/21/25 atorvastatin 40 mg tablet 40 mg PO QHS cholesterol 02/21/25 bumetanide 1 mg tablet 1 mg PO DAILY fluid retention 02/21/25 clopidogrel 75 mg tablet 75 mg PO DAILY Blood thinner 02/21/25 empagliflozin 10 mg tablet (Jardiance) 10 mg PO DAILY Blood sugar 02/21/25 insulin glargine 100 unit/mL (3 mL) subcutaneous pen (Lantus Solostar U-100 Insulin) 15 unit subcut QHS Blood sugar 02/21/25 metoprolol succinate 25 mg capsule sprinkle, ext. release 24 hr 25 mg PO BID BP 02/21/25 acetaminophen 325 mg tablet 650 mg (2 x 325 mg) PO Q6H PRN PRN Pain/fever #0 tabs 04/23/25 amoxicillin 875 mg-potassium clavulanate 125 mg tablet 1 tab PO BID ATB 02/27/25 pantoprazole 40 mg tablet,delayed release 40 mg PO DAILY stomach #0 tabs 02/27/25 sacubitril 49 mg-valsartan 51 mg tablet (Entresto) 1 tab PO BID CHF #0 tabs 02/27/25 Hospital Course Operations None Procedures Colonoscopy and EGD Summary of Care Provided Minutes Spent on Discharge: 32 Hospital Course: This 59-year-old white female was seen in the emergency room at [facility] after being sent there from the rehab unit at [facility] due to rectal bleeding. Labs obtained in the emergency room revealed her hemoglobin to be 11.8, creatinine was 1.[address] of the abdomen and pelvis indicated active bleeding within the patient's proximal descending colon and the splenic flexure. Patient was admitted to PCU, she was seen in consultation by gastroenterology, she did not require any blood transfusion while she was in the hospital. She underwent an EGD and a colonoscopy which revealed ischemic colitis and evidence of diverticulitis, she was placed on oral antibiotics, her EGD showed some erythematous mucosa in the gastric body which was biopsied. On 02/27/2025, patient was seen and examined:alert, oriented x3 and no apparent distress General Appearance: cooperative, well kempt and well developed Orientation / Consciousness: awake, oriented to person, oriented to place and oriented to time HEENT normocephalic, head/scalp atraumatic and moist oral mucous membranes Eyes PERRL, EOMs intact bilaterally and conjunctivae normal Neck supple, no JVD, thyroid normal and no carotid bruits General: trachea midline Resp normal respiratory effort and clear to auscultation bilaterally Auscultation: Negative for rales, rhonchi or wheezes Cardio regular rate, regular rhythm, no murmurs, no rub and no gallops GI normal to inspection, nondistended, normoactive bowel sounds, soft to palpation, non-tender and non-distended Extremity no clubbing, cyanosis or edema Skin no rashes or lesions noted General Skin Exam: no breakdown Neuro oriented x3, CN's II-XII intact bilaterally and no sensory deficits noted Neuro Narrative: Patient has some dysarthria present, there is some mild right sided weakness. Sensorium / Orientation: awake and alert Psych affect normal Patient was discharged to the inpatient rehab unit at [facility] in stable condition on 02/27/2025 Weight / BMI Weight Weight: 92.5 kg Body Mass Index (BMI) 31.0 ABG / Lab / Microbiology Data 02/27/25 04:42 02/26/25 03:27 Laboratory: Laboratory Results - last 24 hr 02/23/25 22:45: Crossmatch See Detail 02/27/25 11:19: POC Glucose 223 H 02/27/25 17:06: POC Glucose 243 H D/C Instructions DC O2, CPAP, BIPAP Needs Home O2 Discharge instructions: No Meaningful Use Info Meaningful Use Meaningful Use Diagnoses (Choose all that apply): None applicable Ischemic Stroke Statin Dosing Therapy Reference: STATIN DOSE THERAPY REFERENCE: * Patients > 75 years receive moderate or high dose statin therapy. * Patients 75 years or YOUNGER should receive HIGH intensity statin dose unless contraindicated. You will be required to document reason for non-treatment if statin daily dose does not meet guidelines. HIGH DOSE STATIN THERAPY DAILY Atorvastatin > than or = to 40 mg Rosuvastatin > than or = to 20 mg Amlodipine + Atorvastatin > than or = to 2.5/40 mg Ezetimibe + Simvastatin 10/80 mg Simvastatin 80mg Discharge Plan Admission Admit Date/Time: 02/24/25 04:56 Primary Reason for Your Visit: Lower GI bleed secondary to ischemic colitis, diverticulitis Attending Provider: Abraham Kerr Primary Care Provider: Care Physician,No Primary Consulting Providers: Danielle,Jonh; Chance Schmitt; Jamie Schwartz Discharge Orders/Prescriptions Prescriptions: New acetaminophen 325 mg Tablet 650 mg PO Q6H PRN PRN (Reason: Pain/fever) Qty: 0 0RF pantoprazole 40 mg Tablet,Delayed Release (Dr/Ec) 40 mg PO DAILY Qty: 0 0RF sacubitril-valsartan [Entresto] 49-51 mg Tablet 1 tab PO BID Qty: 0 0RF Continued Jardiance 10 mg tablet 10 mg PO DAILY aspirin 81 mg capsule 81 mg PO DAILY atorvastatin 40 mg tablet 40 mg PO QHS bumetanide 1 mg tablet 1 mg PO DAILY clopidogrel 75 mg tablet 75 mg PO DAILY insulin glargine [Lantus Solostar U-100 Insulin] 100 unit/mL (3 mL) insulin pen 15 unit subcut QHS metoprolol succinate 25 mg capsule,sprinkle,ER 24hr 25 mg PO BID Discontinued insulin lispro [Humalog KwikPen Insulin] 100 unit/mL insulin pen 3 unit subcut TID sacubitril-valsartan [Entresto] 97-103 mg tablet 0.5 tab PO BID acetaminophen [Aphen] 325 mg tablet 650 mg PO Q4H PRN (Reason: pain) omeprazole 20 mg capsule,delayed release(DR/EC) 20 mg PO DAILY No Action amoxicillin-pot clavulanate 875-125 mg Tablet 1 tab PO BID Referrals / Follow Up: Care Physician,No Primary [Primary Care Provider] - Disposition Disposition (needs filled in before D/C Order can be placed): Inpatient Rehab Unit/Facility Charges/Coding Visit Charges Inpatient E&M: 53220 Disch Hosp >30min
[2025-02-27 17:47] LABS: Bedside Glucose 243 mg/dL (74-106)
== END 2025-02-27 18:05 | DRG 394 ==
PROVIDERS: Anesthesiology; Family Medicine; Internal Medicine Gastroenterology; Admitting Provider Hospitalist; Visit Provider Internal Medicine
PROC: 0DJD8ZZ Inspection of Lower Intestinal Tract, Via Natural or Artificial Opening Endoscopic (ICD-10-PCS; CPT 45378; principal; 2025-02-26 15:10)
DX: K55.9 Vascular disorder of intestine, unspecified (principal); D68.32 Hemorrhagic disorder due to extrinsic circulating anticoagulants; I50.22 Chronic systolic (congestive) heart failure; I69.351 Hemiplegia and hemiparesis following cerebral infarction affecting right dominant side; I42.8 Other cardiomyopathies; A09 Infectious gastroenteritis and colitis, unspecified; I11.0 Hypertensive heart disease with heart failure; E11.65 Type 2 diabetes mellitus with hyperglycemia; Z68.31 Body mass index [BMI] 31.0-31.9, adult; I69.322 Dysarthria following cerebral infarction; I69.393 Ataxia following cerebral infarction; Z79.4 Long term (current) use of insulin; G47.33 Obstructive sleep apnea (adult) (pediatric); K21.9 Gastro-esophageal reflux disease without esophagitis; E78.5 Hyperlipidemia, unspecified; K44.9 Diaphragmatic hernia without obstruction or gangrene; R53.81 Other malaise; Z79.84 Long term (current) use of oral hypoglycemic drugs; E66.811 Obesity, class 1
CPT/HCPCS: 36415; 74177; 80048; 80076; 82962; 83036; 85014; 85018; 85025; 85027; 85610; 85730; 86850; 86900; 86901; 88305; 93005; 94640; 94668; 94762; 97162; 97166; 97530; 97802; 99252; Q9967; A4216; A4648; G0463

== ENCOUNTER 2025-02-27 18:14 | Inpatient (IN) | payer OTHER, SELFPAY ==
[2025-02-27 06:00] VITALS: BMI 31.1
[2025-02-27 18:23] VITALS: BP 102/56; PULSE 89; RESP 15; TEMP 36.2; O2SAT 94; BMI 31.1
[2025-02-27 18:51] VITALS: BMI 31.1
[2025-02-27 21:20] VITALS: BP 108/62; PULSE 96; RESP 15; TEMP 36.6; O2SAT 95
[2025-02-27] MEDS: Metoprolol(XL)Succ 25 MG Tablet PO (21:20)
[2025-02-27] MEDS: SACUBITRIL/VALSARTAN 49-51 MG TABLET 1 EACH PO (21:21)
[2025-02-27] MEDS: Insulin Glargine-YFGN 100 UNIT/ML Pen 15 UNIT SC (21:21)
[2025-02-27] MEDS: Atorvastatin Calcium 40 MG Tablet PO (21:21)
[2025-02-27] MEDS: Insulin Lispro 100 UNIT/ML INSULN.PEN SC (21:22)
[2025-02-27 23:38] LABS: Bedside Glucose 174 mg/dL (74-106)
[2025-02-28 02:15] VITALS: BMI 31.1
[2025-02-28 06:00] VITALS: BP 157/70; PULSE 82; RESP 15; TEMP 36.4; O2SAT 97; BMI 30.9
[2025-02-28 06:02] LABS: Hematocrit 29.5 % (37-47); Hemoglobin 9.5 g/dL (12.0-15.0); Mean Corp Hgb Conc 32.2 g/dL (32-36); Mean Corpuscular Hgb 30.3 pg (27.0-32.0); Mean Corpuscular Volume 93.9 fL (81-99); Mean Platelet Vol. 12.4 fl (6.2-12.0); Platelet Count 262 K/mm3 (150-450); RBC Distribution Width CV 13.2 % (11.6-14.6); RBC Distribution Width SD 45.2 fl (35.1-43.9); Red Blood Count 3.14 M/mm3 (4.2-5.4); White Blood Count 8.2 K/mm3 (4.4-11.0)
[2025-02-28 06:31] LABS: Bedside Glucose 144 mg/dL (74-106)
[2025-02-28 06:42] LABS: ALB/GLOB Ratio 0.9 RATIO (0.9-2.4); AST(SGOT) 19 U/L (<=31); Alanine Aminotransfer ALT/SGPT 14 U/L (<=34); Alkaline Phosphatase 103 U/L (35-104); Anion Gap 10 (5-15); BUN 37 mg/dL (4-19); BUN/Creat Ratio 35.4 RATIO (10-20); Calcium,Total 8.9 mg/dL (7.6-11.0); Carbon Dioxide 25.6 mmol/L (21.0-32.0); Chloride 100 mmol/L (98-108); Creatinine, Serum 1.05 mg/dL (0.70-1.20); EST Glomerular Filtration Rate 61 (>60); Estimated Creatinine Clearance 68.61 ml/min (50-250); Globulin 3.4 g/dL (2.2-4.2); Glucose 129 mg/dL (70-99); Potassium 4.2 mmol/L (3.3-5.1); Protein, Total 6.4 g/dL (5.9-8.4); Sodium Level 136 mmol/L (133-145)
[2025-02-28 08:29] VITALS: PULSE 82
[2025-02-28] MEDS: Pantoprazole Sodium 40 MG Tablet PO (08:29)
[2025-02-28] MEDS: Empagliflozin 10 MG Tablet PO (08:29)
[2025-02-28] MEDS: SACUBITRIL/VALSARTAN 49-51 MG TABLET 1 EACH PO ×2 (08:29→20:35)
[2025-02-28] MEDS: Amox/Clavulanate 875 MG Tablet PO ×2 (08:29→20:34)
[2025-02-28] MEDS: Bumetanide 2 MG Tablet 1 MG PO (08:29)
[2025-02-28] MEDS: Metoprolol(XL)Succ 25 MG Tablet PO ×2 (08:29→20:35)
[2025-02-28] MEDS: Clopidogrel Bisulfate 75 MG Tablet PO (08:29)
[2025-02-28] MEDS: Aspirin 81 MG TAB.CHEW PO (08:29)
--- NOTE | 2025-02-28 08:43 | EX.PCM.HP.RE ---
[facility] - General General Date of Admission: 02/27/25 Date of Service: 02/28/25 Chief Complaint: POST STROKE DEBILITY HPI Narrative ALDO HOYT, is a 59 YO F with a past medical history of left bundle branch block, mild nonobstructive coronary artery disease, pulmonary hypertension, essential hypertension, GERD, uncontrolled diabetes mellitus type 2, small PFO, noncompliance with medications, obstructive sleep apnea, history of meningioma (status post resection) obesity, hyperlipidemia, old TIA and nonischemic CM with a 30-35 % EF (on Entresto) who presented to the emergency department at [facility] on 02/12/2025 complaining of increased shortness of breath, bilateral lower extremity swelling and a 50 pound weight gain over the previous few months. Had been noncompliant with her medications. She was transferred to [facility] on 02/13/2025 for management of acute on chronic congestive heart failure. Transthoracic echocardiogram on 02/13/2025 showed increased left ventricular cavity size with an ejection fraction of 25 to 30% and moderate diffuse hypokinesis. Diastolic dysfunction was present. There was mild to moderate mitral regurgitation. The left atrium was mildly dilated. Right ventricular systolic function was decreased and the right ventricular systolic pressure was estimated at 45. There was mild to moderate tricuspid regurgitation and the right atrium was dilated. While hospitalized at [facility] she developed slurred speech. A stroke alert was called. Noncontrast CT brain showed no acute intracranial pathology. CTA of the head and neck showed no evidence of flow-limiting stenosis or large vessel occlusion. MRI of the brain without contrast showed bilateral infarcts in the right occipital lobe and the left frontal lobe/brady radiata. She had a transesophageal echocardiogram on 02/19/2025 that showed no PFO (although she had a diagnosis of small PFO in the past). LDL was 63 and the HDL was 43. Triglycerides were 144. HGBA1C was 10.2. Post stroke she was seen by PT/OT/ST and acute inpt rehab was recommended. She was transferred to the acute inpt rehab unit at [facility] on 02/21/25 for 3 hours of therapy daily to restore function/independence at or near her level prior to stroke. 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 She drives. Her son lives with her. Not long after arriving on rehab she developed bloody diarrhea while taking ASA, Plavix and Lovenox. HGB dropped from 14.6 at admission to rehab on 02/22/2025 to 10.7 on the evening of 02/24/2025. Aspirin, Plavix and Lovenox were placed on hold. She was transferred to the acute side of the hospital for GI evaluation. A CT of the abdomen with contrast showed finding consistent with active bleeding within the patient's proximal descending colon near the splenic flexure. Dr. Santos from gastroenterology was consulted. On 02/26/2025 she underwent EGD that showed an irregular Z-line which was biopsied. There was a small hiatal hernia present. There was localized moderately erythematous mucosa without bleeding in the gastric body and biopsies were taken. There was patchy mild erythematous mucosa without active bleeding and no stigmata of bleeding found in the duodenal bulb, and the second portion of the duodenum and in the third portion of the duodenum. Biopsies were taken. Colonoscopy showed localized moderate inflammation in the descending colon at the splenic flexure thought to be secondary to ischemic colitis. There was diverticulosis in the rectosigmoid colon, sigmoid colon, descending colon, splenic flexure, transverse colon and hepatic flexure. There was a polypoid nonobstructing large mass found in the ascending colon which measured 4 cm in length and 15 mm in diameter. There was no bleeding present. The polyp was removed with a saline injection-lift technique using a cold snare. The area was tattooed with an injection of 1 mL of Natalie ink and the specimen was sent to pathology. The hemoglobin remained stable at approximately 9 and she was transferred back to acute inpatient rehab on 02/28/2024 with 3 hours of PT/OT/ST to restore function/independence at or near her level prior to the stroke. She told me that her mother had colon CA. Aldo had a colonoscopy in the past but, that was many years ago. All lab drawn this morning was personally reviewed. White blood cell count is 8.2 and the hemoglobin is stable at 9.5. Platelets are within normal limits. Sodium is 136 and the potassium is 4.2. The BUN is 37 with a creatinine of 1.05 which is down from 1.4214 2024. LFTs are normal. Medication list was reviewed and the antidepressant that was started at admission to rehab initially has been discontinued. She is on Augmentin.....I suspect for diverticulitis but, there was no evidence of diverticulitis on the CT of the [facility]. [facility] Medical History (Updated 03/01/25 @ 17:[address] Lara Forman DO) Family history of colon cancer in mother Poor dentition Asthma Pulmonary hypertension Nonrheumatic tricuspid valve regurgitation Nonrheumatic mitral valve regurgitation Biatrial enlargement Diastolic dysfunction Left bundle branch block History of meningioma of the brain Obesity (BMI 30.0-34.9) HTN (hypertension) Hyperlipidemia GERD (gastroesophageal reflux disease) Nonischemic cardiomyopathy Uncontrolled type 2 diabetes mellitus Home Medications ?Medication ?Instructions ?Recorded ?Last Taken ?Type aspirin 81 mg capsule 81 mg PO DAILY heart health 02/21/25 Unknown History atorvastatin 40 mg tablet 40 mg PO QHS cholesterol 02/21/25 02/26/25 History bumetanide 1 mg tablet 1 mg PO DAILY fluid retention 02/21/25 Unknown History clopidogrel 75 mg tablet 75 mg PO DAILY Blood thinner 02/21/25 Unknown History empagliflozin 10 mg tablet 10 mg PO DAILY Blood sugar 02/21/25 Unknown History (Jardiance) insulin glargine 100 unit/mL (3 15 unit subcut QHS Blood sugar 02/21/25 Unknown History mL) subcutaneous pen (Lantus Solostar U-100 Insulin) metoprolol succinate 25 mg capsule 25 mg PO BID BP 02/21/25 Unknown History sprinkle, ext. release 24 hr acetaminophen 325 mg tablet 650 mg (2 x 325 mg) PO Q6H PRN PRN 02/27/25 Unknown Rx Pain/fever #0 tabs amoxicillin 875 mg-potassium 1 tab PO BID ATB 02/27/25 Unknown History clavulanate 125 mg tablet pantoprazole 40 mg tablet,delayed 40 mg PO DAILY stomach #0 tabs 02/27/25 02/27/25 Rx release sacubitril 49 mg-valsartan 51 mg 1 tab PO BID CHF #0 tabs 02/27/25 02/27/25 Rx tablet (Entresto) Allergy/AdvReac Type Severity Reaction Status Date / Time No Known Allergies Allergy Verified 02/21/25 19:08 Family History (Updated 02/28/25 @ 16:[address] Lara Forman DO) Mother Colon cancer Other Diabetes Surgical History (Updated 02/28/25 @ 16:[address] 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[place] [employer] Smoking Status: Never smoker substance use type: does not use ROS Constitutional Constitutional: Reports change in weight, fatigue, weakness, weight loss and other Details: Weight loss is secondary to aggressive diuresis for a 50 pound weight gain due to acute on chronic systolic congestive heart failure ; Denies anorexia, chills, fever(s), headache(s) or night sweats Eyes Eyes: Reports loss of vision; Denies blurry vision, change in vision or eye pain ENT HEENT: Denies abnormal hearing, dysphagia, headache(s), hearing loss, nasal congestion or sore throat Cardiovascular Cardiovascular: Reports edema; Denies chest pain, dyspnea on exertion, lightheadedness, orthopnea, palpitations, paroxysmal nocturnal dyspnea or syncope Respiratory/Chest Respiratory/Chest: Reports dyspnea on exertion and shortness of breath with exertion; Denies cough, dyspnea, shortness of breath at rest or wheezing Gastrointestinal Gastrointestinal: Reports nausea; Denies abdominal pain, constipation, diarrhea, dyspepsia, hematemesis, hematochezia or vomiting Genitourinary Genitourinary: Denies dysuria, hematuria, nocturia, urinary frequency, urinary hesitancy, urinary incontinence or urinary urgency Musculoskeletal Musculoskeletal: Denies back pain, joint pain, joint swelling or neck pain Neurologic Neurologic: Reports disequilibrium, focal weakness and loss of vision; Denies confusion, dizziness, headache(s), paresthesias, seizures, tremor(s) or vertigo Psychiatric Psychiatric: Reports other Details: The loss of vision is due to a right lateral inferior quadrantanopia secondary to ischemic CVA ; Denies anxiety, depression, homicidal ideation or suicidal ideation Endocrine Endocrinology: Denies change in body appearance, polydipsia or polyuria Hematologic/Lymphatic Hematologic/Lymphatic: Reports easy bleeding; Denies easy bruising or lymphadenopathy Allergic/Immunologic Allergic/Immunologic: Denies rhinitis, eczemia or asthma Vital Signs Vital Signs Vital Signs: 04/23/25 18:23 02/27/25 18:53 02/27/25 21:20 Temperature 97.2 F L 97.9 F Temperature Source Temporal Temporal Pulse Rate 89 96 Respiratory Rate 15 15 Respiratory Effort Normal Non-Labored Respiratory Depth Normal Respiratory Pattern Normal Blood Pressure 102/56 L 108/62 Blood Pressure Mean 71 77 Blood Pressure Source Monitor Blood Pressure Position Semi-Fowlers Blood Pressure Location Left Arm Pulse Ox 94 95 Oxygen Delivery Method Room Air Room Air Room Air 02/27/25 21:20 02/27/25 22:00 02/28/25 06:00 Temperature 97.5 F L Temperature Source Temporal Pulse Rate 96 82 Respiratory Rate 15 Respiratory Effort Normal Non-Labored Respiratory Depth Normal Respiratory Pattern Normal Blood Pressure 157/70 H Blood Pressure Mean 99 Blood Pressure Source Monitor Blood Pressure Position Semi-Fowlers Blood Pressure Location Left Arm Pulse Ox 97 Oxygen Delivery Method Room Air Room Air 02/28/25 08:29 Temperature Temperature Source Pulse Rate 82 Respiratory Rate Respiratory Effort Respiratory Depth Respiratory Pattern Blood Pressure Blood Pressure Mean Blood Pressure Source Blood Pressure Position Blood Pressure Location Pulse Ox Oxygen Delivery Method Weight Weight: 203 lb 14.841 oz Body Mass Index (BMI) 30.9 Indicators for Scoring Admitted with or Primary Diagnosis of CVA/Stroke: Yes Hx of CVA/Stroke: Yes Modified [place] Score MRS Score at time of Evaluation: 4-Moderate/severe disability NIHSS NIHSS 1a. Level of Consciousness: 0 - Alert; keenly responsive 1b. LOC Questions: 0 - Answers BOTH questions correctly 1c. LOC Commands: 0 - Performs BOTH tasks correctly 3. Visual: 1 - Partial hemianopia (Right lateral inferior quadrantanopia) 4. Facial Palsy: 2 - Partial paralysis (total or near-total paralysis of lower face) 5a. Left Arm: 0 - No drift; arm holds 90 (or 45) degrees for full 10 seconds 5b. Right Arm: 0 - No drift; arm holds 90 (or 45) degrees for full 10 seconds 6a. Left Le - No drift; leg holds 30-degree position for full 5 seconds 6b. Right Le - No drift; leg holds 30-degree position for full 5 seconds 7. Limb Ataxia: 1 - Present in 1 limb (Right upper extremity) 8. Sensory: 0 - Normal; no sensory loss 9. Best Language: 0 - No aphasia; normal 10. Dysarthria: 1 = [id number] dysarthria; 11. Extinction and Inattention: 0 - No abnormality Total: 5 Physical Exam Const alert, oriented x3 and no apparent distress Constitutional Narrative: Sitting in the recliner at the bedside. Somewhat disheveled. Appears older than her stated age. Flat affect. General Appearance: cooperative HEENT moist oral mucous membranes HEENT Narrative: No evidence of thrush. Poor dentition. Tongue deviates mildly to the right. Right facial droop. Eyes PERRL, EOMs intact bilaterally, conjunctivae normal and no scleral icterus Eyes Narrative: No discharge from the eyes and no mattering of the eyelashes. She has loss of vision in the right lateral inferior quadrant. General Eye: normal appearance of both eyes Neck no lymphadenopathy, supple, no JVD and no carotid bruits General: trachea midline Chest Chest: symmetrical chest wall rise Resp normal respiratory effort and no use of accessory muscles Resp Narrative: Not tachypneic and no conversational dyspnea. Diminished breath sounds throughout but primarily in the lower lobes. No wheezing and no crackles. No cough with deep breathing. Cardio regular rate, regular rhythm, S1 normal heart sound, S2 normal heart sound, no murmurs, no rub and no gallops Cardio Narrative: No ectopy GI normal to inspection, nondistended, normoactive bowel sounds and non-tender GI Narrative: No guarding with palpation. Bowel sounds are not hyperactive. No masses. no CVA tenderness Extremity no clubbing, cyanosis or edema and no calf tenderness Extremity Narrative: Negative Carlos's and Mayo's signs Skin Skin Narrative: No rashes, no skin breakdown. Rashes: no rashes Neuro oriented x3 Neuro Narrative: She has no drift with the right upper extremity or right lower extremity however she is weak on the right side compared to the left. Marked right facial droop and tongue deviates to the right. She has right lateral inferior quadrantanopia. Ataxic with the right upper extremity. No extinction. No aphasia. Significant dysarthria but I am able to understand her easily......it has improved from when she first presented to acute rehab on 02/21/25. Some neglect of the right side, may be related to the visual field cut. No ataxia with the right lower extremity. She is right-hand dominant. No tremors. Psych denies hallucinations, denies homicidal ideation and denies suicidal ideation Appearance: disheveled and other Appears older than her stated age. Attitude: calm and engaged Activity / Motor Behavior: appropriate eye contact Speech: normal speech Mood & Affect: flat affect Attention / Concentration: attention grossly intact Insight: limited Judgement: limited Results Lab / Micro Data 02/28/25 05:35 02/28/25 05:35 Labs: Laboratory Results - last 24 hr 02/27/25 21:18: POC Glucose 174 H 02/28/25 05:35: WBC 8.2, RBC 3.14 L, Hgb 9.5 L, Hct 29.5 L, MCV 93.9, MCH 30.3, MCHC 32.2, RDW Std Deviation 45.2 H, RDW Coeff of Briseida 13.2, Plt Count 262, MPV 12.4 H, Sodium 136, Potassium 4.2, Chloride 100, Carbon Dioxide 25.6, Anion Gap 10, BUN 37 H, Creatinine 1.05, Estim Creat Clear Calc 68.61, Est GFR (MDRD) Non-Af 61, BUN/Creatinine Ratio 35.4 H, Glucose 129 H, Calcium 8.9, Total Bilirubin 1.00, AST 19, ALT 14, Alkaline Phosphatase 103, Total Protein 6.4, Albumin 3.0 L, Globulin 3.4, Albumin/Globulin Ratio 0.9 02/28/25 06:07: POC Glucose 144 H Assessment & Plan Assessment/Plan (1) Debility: (2) Ischemic cerebrovascular accident (CVA): (3) Quadrantanopia of right eye: (4) Right sided weakness: (5) Dysarthria: (6) Ataxia: (7) Lower GI bleed: (8) Diverticulosis: (9) Gastritis: (10) Duodenitis: (11) Colonic mass: (12) Family history of colon cancer in mother: (13) Urinary incontinence: QUALIFIERS: Urinary Incontinence type: unspecified incontinence Qualified Code(s): R32 - Unspecified urinary incontinence (14) Depression: QUALIFIERS: Depression Type: unspecified Qualified Code(s): F32.A - Depression, unspecified (15) Hyperbilirubinemia: (16) Asthma: QUALIFIERS: Asthma severity: mild Asthma persistence: intermittent Asthma complication type: with acute exacerbation Qualified Code(s): J45.21 - Mild intermittent asthma with (acute) exacerbation (17) Pulmonary hypertension: (18) Nonrheumatic tricuspid valve regurgitation: (19) Nonrheumatic mitral valve regurgitation: (20) Biatrial enlargement: (21) Diastolic dysfunction: (22) Left bundle branch block: (23) Obstructive sleep apnea: (24) Acute on chronic combined systolic and diastolic congestive heart failure: (25) GERD (gastroesophageal reflux disease): QUALIFIERS: Esophagitis presence: without esophagitis Qualified Code(s): K21.9 - Gastro-esophageal reflux disease without esophagitis (26) Nonischemic cardiomyopathy: (27) Hyperlipidemia: QUALIFIERS: Hyperlipidemia type: unspecified Qualified Code(s): E78.5 - Hyperlipidemia, unspecified (28) HTN (hypertension): QUALIFIERS: Hypertension type: primary hypertension Qualified Code(s): I10 - Essential (primary) hypertension (29) Uncontrolled type 2 diabetes mellitus: QUALIFIERS: Glycemic state: with hyperglycemia Qualified Code(s): E11.65 - Type 2 diabetes mellitus with hyperglycemia PLAN: Plan PLAN PT for gait stability OT for ADL's ST for evaluation Analgesics as needed Bowel protocol Fall precautions Assess for Anxiety/Depression GI prophylaxis -pantoprazole DVT prophylaxis with discussed with Dr. Santos. Benjaminay to start Lovenox in the next 24 to 48 hours. Follow up with neurology, PCP, cardiology, Dr. Santos following DC from [facility] Rehab AM lab including CMP, CBC, Mag and Phos - all personally reviewed. Add lactobacillus to the drug regimen since she is on Augmentin. I suspect the Augmentin is being used for diverticulitis? No obvious diverticulitis on the CT scan of the abdomen/pelvis. Restart Sertraline for depression. Await the pathology on the colon mass bx and also the biopsies of the Z line, stomach and duodenum. Charges/Coding Visit Charges Inpatient E&M: 04417 Init Hosp L2
[2025-02-28 12:16] VITALS: O2SAT 97
[2025-02-28] MEDS: Insulin Lispro 100 UNIT/ML INSULN.PEN SC (12:44)
[2025-02-28 12:46] LABS: Bedside Glucose 195 mg/dL (74-106)
[2025-02-28 15:50] VITALS: BMI 30.9
[2025-02-28 17:27] LABS: Bedside Glucose 160 mg/dL (74-106)
[2025-02-28 17:40] VITALS: BP 143/64; PULSE 85; RESP 17; TEMP 36.8; O2SAT 97
[2025-02-28 20:35] VITALS: BP 108/63; PULSE 84
[2025-02-28] MEDS: Lactobacillis Acidophilus 1 CAP PO (20:35)
[2025-02-28] MEDS: Atorvastatin Calcium 40 MG Tablet PO (20:35)
[2025-02-28] MEDS: Insulin Glargine-YFGN 100 UNIT/ML Pen 15 UNIT SC (21:46)
[2025-02-28 22:13] LABS: Bedside Glucose 173 mg/dL (74-106)
[2025-03-01 07:07] VITALS: BP 123/52; PULSE 74; RESP 18; TEMP 36.5; O2SAT 92; BMI 30.7
[2025-03-01 07:30] LABS: Bedside Glucose 165 mg/dL (74-106)
[2025-03-01] MEDS: Insulin Lispro 100 UNIT/ML INSULN.PEN SC ×3 (08:22→17:16)
[2025-03-01] MEDS: Bumetanide 2 MG Tablet 1 MG PO (08:23)
[2025-03-01] MEDS: Aspirin 81 MG TAB.CHEW PO (08:23)
[2025-03-01] MEDS: Lactobacillis Acidophilus 1 CAP PO ×2 (08:23→22:29)
[2025-03-01 08:24] VITALS: PULSE 74
[2025-03-01] MEDS: Empagliflozin 10 MG Tablet PO (08:24)
[2025-03-01] MEDS: Amox/Clavulanate 875 MG Tablet PO (08:24)
[2025-03-01] MEDS: Sertraline 50 MG Tablet PO (08:24)
[2025-03-01] MEDS: Metoprolol(XL)Succ 25 MG Tablet PO ×2 (08:24→22:33)
[2025-03-01] MEDS: Clopidogrel Bisulfate 75 MG Tablet PO (08:24)
[2025-03-01] MEDS: SACUBITRIL/VALSARTAN 49-51 MG TABLET 1 EACH PO ×2 (08:24→22:29)
[2025-03-01] MEDS: Pantoprazole Sodium 40 MG Tablet PO (08:24)
[2025-03-01 09:26] VITALS: O2SAT 97
[2025-03-01 10:50] VITALS: BMI 30.7
[2025-03-01 12:12] LABS: Bedside Glucose 197 mg/dL (74-106)
--- NOTE | 2025-03-01 17:13 | REHABEVAL_ITS ---
Admission Information Primary Diagnosis:: Poststroke debility Status Changes from Prescreening?: No changes Identified Actual Problem List:: Depression, Bladder Incontinence, Bowel, Incontinence, Alteration in Sleep, Mobility Impaired, Self Care Deficit, Know.Dfct/Disease Process, BP, Hypertension and Alteration-Leisure Activ. Potential Problem List:: DVT, Bleeding, Infection, UTI, Aspiration, Falls, Skin Integrity and Depression Risk of Complications DVT: LMWH (Okay with GI to start on 03/01/2025. Will use SCDs until we can start pharmacologic prophylaxis.) and MIGUE Hose Bleeding: Monitor Lab Values, Nursing to Teach Precautions for anti-coagulation therapy., Wound, if applicable, to be assessed every shift. and Stroke patients assessed for lethargy or change in status. Infection: Clinical Staff to Monitor for S/S of infection: and S/S of infection include fever, redness, warmth, etc. Urinary Tract Infection: Monitor for frequency, burning, discomfort, or incontinence. and Nursing will obtain urine sample for urinalysis and C&S when ordered. Aspiration: Clinical staff will monitor for coughing, drooling, congestion., Speech will evaluate swallowing and dsyphasia. and Nursing will monitor patient swallowing during meals. Falls: Patient will be evaluated for Fall Precautions and Patient will be placed on Fall Precautions as indicated per protocol. Skin Breakdown: Nursing will assess skin daily using assessment tool. and Nursing will place on Skin Breakdown Precautions as indicated. Pain: Clinical staff will assess patient's pain level per protocol., Medications will be given, if needed, and the pain level reassessed. and Other methods: Massage, distraction, decrease stimulus, etc. used PRN. Plan of Care Patient requires physician specializing in physical medicine and rehab oversight to provide close medical supervision of rehab issues including: Pain Management, Sleep Problems, Bowel and Bladder, Medical and co-morbidity Management, DVT prophylaxis, Rehabilitation Leadership and Coordination of treatment team Patient needs Physical Therapy: For a minimum of 1 hour and At least 5 out of 7 days Patient needs Physical Therapy to improve:: Mobility, Strengthening, Transfers, Stretching, ROM, Endurance, Stairs, Gait and Balance Patient needs Occupational Therapy: For a minimum of 1 hour and At least 5 out of 7 days Patient needs Occupational Therapy to improve ADL's incl.: Eating, Grooming, Bathing, Dressing, Toileting, Toilet transfers, Community Reintegration, Higher functioning activities, Household tasks, Adaptive Equipment, Splinting and Other activities as determined Patient requires speech therapy: For a minimum of 1 hour and At least 5 out of 7 days Patient requires speech therapy for: Swallowing, Cognition, Language Skills and Compensatory Strategies Patient requires 24/ Rehabilitation Nursing for: Pain Issues, Identifying and preventing risk factors, Monitoring and reporting current medical conditions, Assisting with ambulation, transfer, and all ADL's, Teaching patients about disease process and medications, Family teaching, Providing safe environment, Bowel and Bladder Issues, Skin integrity and Medication Management Patient needs Executive Staff Assistant/ Case Management for: Discharge Planning, Arranging Home Equipment or Services and Family Interventions Patient needs Dietary and Nutrition Services for: Adequate Nutrition, Nutritiona l Supplements and Nutritional Education Goals Goals Patient will remain: free from falls Patient will perform eating at: MOD I level of assist. Patient will perform bed mobility at: MOD I level of assist. Patient will complete transfers from bed to chair at: - (Supervision) Patient will ambulate: - (225 feet with least restrictive device at supervision on various surfaces) Patient will complete upper body dressing at: MOD I level of assist. Patient will complete lower body dressing at: MOD I level of assist. Patient will complete toilet transfer at: MOD I level of assist. Patient will complete toileting at: MOD I level of assist. Patient will perform bathing at: MOD I level of assist. Patient will perform Tub/Shower transfer at: - (Supervision for the first 1 to 2 weeks at home) Patient will complete grooming at: MOD I level of assist. (While standing at the sink) Patient will complete home management skills at: MOD I level of assist. Patient will achieve: 12 stairs (With 1 handrail at standby assist) Patient will have pain level of: of 3 or less Patient's skin will: remain intact Patient will receive: adequate nutrition. Discharge Planning Pt Prognosis for Sig. Practical Improv. w/in Reasonable Time: Good Estimated Length of stay (days): 21 Anticipated D/C Destination: Home w/ family or friends Was Preadmission Assessment Accurate?: Yes
[2025-03-01 17:14] LABS: Bedside Glucose 201 mg/dL (74-106)
--- NOTE | 2025-03-01 17:21 | PCM.PROGNOTE ---
Subjective Subjective Afebrile Blood pressure over the past 24 hours has ranged from 108/63 to 157/70. Heart rate is within normal limits. Maintaining an oxygen saturation of 92 to 97% on room air. Eating 75 to 100% of most meals. Fluid intake is poor The blood sugar record was reviewed. Fasting blood sugar this morning was 165 and it was 173 at bedtime. Blood sugar at lunch was 201. Diabetic medications include Jardiance 10 mg daily, glargine 50 units at bedtime and SSI....has had 5 units of Lispro today. Nursing reports numerous diarrhea stools today and she is not on stool softeners. The stool is brown and there is no maroon or bright red blood. She denies nausea and has not vomited. She denies heartburn. She is on Augmentin and it is unclear to me why she is on an antibiotic and if she got antibiotics while on the acute side of the hospital Incontinent of both urine and stool. Postvoid residual x 1 is 162. Denies headache, lightheadedness, cough, shortness of breath, chest pain, nausea/vomiting, abdominal pain, dysuria and calf tenderness. Objective Data Objective Data Vital Signs: Vital Signs Temp Pulse Resp BP Pulse Ox O2 Del Method 97.7 F L 74 18 123/52 H 97 Room Air 03/01/25 07:07 03/01/25 08:24 03/01/25 07:07 03/01/25 07:07 03/01/25 09:26 03/01/25 09:26 Oxygen Delivery Method Room Air Weight: 202 lb 9.677 oz Body Mass Index (BMI) 30.7 Intake & Output: Intake and Output for Last 24 Hours 02/27/25 02/28/25 03/01/25 23:59 23:59 23:59 Intake Total 650 / 650 1120 / 1120 680 / 680 Output Total 650 / 650 Balance 650 / 650 1120 / 1120 Lab / Micro Data 02/28/25 05:35 02/28/25 05:35 Labs: Laboratory Results - last 24 hr 02/28/25 16:44: POC Glucose 160 H 02/28/25 21:45: POC Glucose 173 H 03/01/25 07:12: POC Glucose 165 H 03/01/25 11:44: POC Glucose 197 H 04/25/25 16:54: POC Glucose 201 H Physical Exam Const alert and no apparent distress Constitutional Narrative: Flat affect Resp clear to auscultation bilaterally Cardio regular rate and regular rhythm GI GI Narrative: The abdomen is soft and nondistended. Bowel sounds are mildly hypoactive. No guarding with palpation. Extremity no calf tenderness General Extremity: Negative for edema Assessment & Plan Assessment/Plan (1) Debility: (2) Ischemic cerebrovascular accident (CVA): (3) Quadrantanopia of right eye: (4) Right sided weakness: (5) Dysarthria: (6) Ataxia: (7) Lower GI bleed: (8) Diverticulosis: (9) Gastritis: (10) Duodenitis: (11) Colonic mass: (12) Family history of colon cancer in mother: (13) Urinary incontinence: QUALIFIERS: Urinary Incontinence type: unspecified incontinence Qualified Code(s): R32 - Unspecified urinary incontinence (14) Depression: QUALIFIERS: Depression Type: unspecified Qualified Code(s): F32.A - Depression, unspecified (15) Pulmonary hypertension: (16) Left bundle branch block: (17) Obstructive sleep apnea: (18) Acute on chronic combined systolic and diastolic congestive heart failure: (19) Fecal incontinence: (20) Diarrhea: PLAN: Plan 1. Continue therapy 2. Check a C. difficile 3. With the Augmentin on hold and continue lactobacillus 4. CBC and BMP in the a.m. 5. Continue the SSI for now. Would like to use Glucophage in the AM for better BS control but, not until diarrhea resolves. Could increase the Jardiance to 25 mg daily.......but, with all the diarrhea I am afraid the bicarb may drop. 6. Still waiting for path reports. Charges/Coding Visit Charges Inpatient E&M: 33787 Subs Hosp L2
[2025-03-01 17:25] VITALS: BP 129/59; PULSE 87; RESP 16; TEMP 36.6; O2SAT 97
[2025-03-01] MEDS: Atorvastatin Calcium 40 MG Tablet PO (22:29)
[2025-03-01 22:33] VITALS: BP 147/59; PULSE 71
[2025-03-01] MEDS: Insulin Glargine-YFGN 100 UNIT/ML Pen 15 UNIT SC (22:39)
[2025-03-01 23:12] LABS: Bedside Glucose 173 mg/dL (74-106)
[2025-03-02] VITALS (7 sets, daily range): BP systolic 107–138; BP diastolic 53–68; PULSE 66–71; RESP 17–18; TEMP 36.3–36.6; O2SAT 92–97; BMI 30.7; BMI 30.3
[2025-03-02] MEDS: Enoxaparin 40 MG/0.4 ML Syringe SC (05:49)
[2025-03-02 06:02] LABS: Absolute Lymphocyte Count 1.81 X10^3/uL (0.83-4.51); Absolute Neutrophil Count 5.4 X10^3/uL (2.0-7.7); Basophil# 0.04 X10^3/uL; Basophil% 0.5 % (0-1); Eosinophils% 4.9 % (0-5); Hematocrit 27.1 % (37-47); Hemoglobin 9.1 g/dL (12.0-15.0); Lymphocyte # 1.81 X10^3/ul (0.83-4.51); Mean Corp Hgb Conc 33.6 g/dL (32-36); Mean Corpuscular Hgb 30.6 pg (27.0-32.0); Mean Corpuscular Volume 91.2 fL (81-99); Mean Platelet Vol. 12.4 fl (6.2-12.0); Monocyte% 6.1 % (0-10); NRBC Flagged by Analyzer 0 % (0-5); Neutrophil # 5.44 X10^3/uL (2.7-7.7); Neutrophil % 65.9 % (47-70); Platelet Count 329 K/mm3 (150-450); RBC Distribution Width CV 13.5 % (11.6-14.6); RBC Distribution Width SD 44.5 fl (35.1-43.9); Red Blood Count 2.97 M/mm3 (4.2-5.4); White Blood Count 8.2 K/mm3 (4.4-11.0)
[2025-03-02 06:17] LABS: Anion Gap 12 (5-15); BUN 32 mg/dL (4-19); BUN/Creat Ratio 26.3 RATIO (10-20); Calcium,Total 9.2 mg/dL (7.6-11.0); Carbon Dioxide 25.6 mmol/L (21.0-32.0); Chloride 99 mmol/L (98-108); EST Glomerular Filtration Rate 52 (>60); Estimated Creatinine Clearance 59.46 ml/min (50-250); Glucose 145 mg/dL (70-99); Potassium 3.7 mmol/L (3.3-5.1); Sodium Level 136 mmol/L (133-145)
[2025-03-02 07:47] LABS: Bedside Glucose 137 mg/dL (74-106)
[2025-03-02] MEDS: Aspirin 81 MG TAB.CHEW PO (08:13)
[2025-03-02] MEDS: Lactobacillis Acidophilus 1 CAP PO ×2 (08:13→21:29)
[2025-03-02] MEDS: SACUBITRIL/VALSARTAN 49-51 MG TABLET 1 EACH PO ×2 (08:13→21:29)
[2025-03-02] MEDS: Metoprolol(XL)Succ 25 MG Tablet PO ×2 (08:13→21:35)
[2025-03-02] MEDS: Sertraline 50 MG Tablet PO (08:13)
[2025-03-02] MEDS: Clopidogrel Bisulfate 75 MG Tablet PO (08:13)
[2025-03-02] MEDS: Bumetanide 2 MG Tablet 1 MG PO (08:14)
[2025-03-02] MEDS: Pantoprazole Sodium 40 MG Tablet PO (08:14)
[2025-03-02] MEDS: Empagliflozin 10 MG Tablet PO (08:14)
[2025-03-02] MEDS: Insulin Lispro 100 UNIT/ML INSULN.PEN SC ×2 (12:14→16:57)
[2025-03-02] MEDS: Vancomycin 125 MG/5 ML Susp PO.SYRINGE PO ×2 (12:15→16:58)
[2025-03-02 12:19] LABS: Bedside Glucose 173 mg/dL (74-106)
[2025-03-02] MEDS: Acetaminophen 325 MG Tablet 650 MG PO (15:11)
[2025-03-02] MEDS: 0.9% Saline Lock 10 ML Syringe IV (15:18)
[2025-03-02 17:21] LABS: Bedside Glucose 202 mg/dL (74-106)
[2025-03-02] MEDS: Atorvastatin Calcium 40 MG Tablet PO (21:29)
[2025-03-02] MEDS: Insulin Glargine-YFGN 100 UNIT/ML Pen 15 UNIT SC (21:29)
[2025-03-02 22:03] LABS: Bedside Glucose 166 mg/dL (74-106)
[2025-03-03] MEDS: Vancomycin 125 MG/5 ML Susp PO.SYRINGE PO ×4 (00:31→17:51)
[2025-03-03 01:12] VITALS: BMI 30.3
[2025-03-03] MEDS: Enoxaparin 40 MG/0.4 ML Syringe SC (05:42)
[2025-03-03 05:43] VITALS: BP 141/59; PULSE 61; RESP 16; TEMP 36.5; O2SAT 97
[2025-03-03 05:45] VITALS: BMI 30.4
[2025-03-03 07:06] LABS: Bedside Glucose 137 mg/dL (74-106)
[2025-03-03 09:33] VITALS: BP 110/59; PULSE 65
[2025-03-03] MEDS: Sertraline 50 MG Tablet PO (09:33)
[2025-03-03] MEDS: Metoprolol(XL)Succ 25 MG Tablet PO ×2 (09:33→22:22)
[2025-03-03] MEDS: SACUBITRIL/VALSARTAN 49-51 MG TABLET 1 EACH PO ×2 (09:34→22:17)
[2025-03-03] MEDS: Aspirin 81 MG TAB.CHEW PO (09:34)
[2025-03-03] MEDS: Bumetanide 2 MG Tablet 1 MG PO (09:34)
[2025-03-03] MEDS: Lactobacillis Acidophilus 1 CAP PO ×2 (09:34→22:17)
[2025-03-03] MEDS: Pantoprazole Sodium 40 MG Tablet PO (09:34)
[2025-03-03] MEDS: Empagliflozin 10 MG Tablet PO (09:34)
[2025-03-03] MEDS: Clopidogrel Bisulfate 75 MG Tablet PO (09:34)
[2025-03-03] MEDS: 0.9% Saline Lock 10 ML Syringe IV (09:35)
[2025-03-03 11:44] LABS: Bedside Glucose 187 mg/dL (74-106)
[2025-03-03] MEDS: Insulin Lispro 100 UNIT/ML INSULN.PEN SC ×2 (12:24→17:53)
[2025-03-03 13:33] VITALS: BMI 30.4
[2025-03-03 14:43] VITALS: BP 117/49; PULSE 66
[2025-03-03 16:53] LABS: Bedside Glucose 169 mg/dL (74-106)
[2025-03-03 18:00] VITALS: BP 108/69; PULSE 80; RESP 16; TEMP 36.4; O2SAT 94
[2025-03-03] MEDS: Insulin Glargine-YFGN 100 UNIT/ML Pen 15 UNIT SC (22:17)
[2025-03-03] MEDS: Atorvastatin Calcium 40 MG Tablet PO (22:17)
[2025-03-03 22:22] VITALS: BP 123/62; PULSE 69
[2025-03-03 22:55] LABS: Bedside Glucose 227 mg/dL (74-106)
[2025-03-03 23:57] VITALS: BMI 30.4
[2025-03-04] VITALS (7 sets, daily range): BP systolic 78–155; BP diastolic 53–72; PULSE 63–80; RESP 16–18; TEMP 36.3–36.9; O2SAT 98–99; BMI 30.4
[2025-03-04] MEDS: Vancomycin 125 MG/5 ML Susp PO.SYRINGE PO ×5 (00:51→23:21)
[2025-03-04] MEDS: Enoxaparin 40 MG/0.4 ML Syringe SC (05:36)
[2025-03-04 07:07] LABS: Bedside Glucose 151 mg/dL (74-106)
[2025-03-04] MEDS: Sertraline 50 MG Tablet PO (07:57)
[2025-03-04] MEDS: Insulin Lispro 100 UNIT/ML INSULN.PEN SC ×2 (07:57→11:53)
[2025-03-04] MEDS: Clopidogrel Bisulfate 75 MG Tablet PO (07:57)
[2025-03-04] MEDS: Pantoprazole Sodium 40 MG Tablet PO (07:57)
[2025-03-04] MEDS: Metoprolol(XL)Succ 25 MG Tablet PO ×2 (07:57→22:16)
[2025-03-04] MEDS: Menthol/Lanolin/Calamine/Znox 113 GM Tube 1 APPLIC TOPICAL ×2 (07:58→22:48)
[2025-03-04] MEDS: Aspirin 81 MG TAB.CHEW PO (07:58)
[2025-03-04] MEDS: Lactobacillis Acidophilus 1 CAP PO ×2 (07:58→22:16)
[2025-03-04] MEDS: Empagliflozin 10 MG Tablet PO (07:58)
[2025-03-04] MEDS: SACUBITRIL/VALSARTAN 49-51 MG TABLET 1 EACH PO ×2 (07:58→22:16)
[2025-03-04] MEDS: Bumetanide 2 MG Tablet 1 MG PO (07:58)
--- NOTE | 2025-03-04 09:59 | PCM.PROGNOTE ---
Subjective Subjective Kelsie was seen on TEAM rounds today. Her sister and son were present in the room today. All questions were answered to their satisfaction. Afebrile VSS -blood pressure over the weekend has ranged from 107/53 to 143/66 (this AM). HR is within normal limits. Maintaining appropriate oxygen saturation on RA Oral intake - FOOD good FLUIDS good Discussed with nursing - Had numerous BM's on Tuesday. C.DIFF was positive. Started on oral Vanco. Augmentin was discontinued. Had 1 large non-formed stool Tuesday and none yesterday. Incontinent of 1 small stool this AM. Remains incontinent of urine. Reviewed the THERAPY notes Medication list reviewed. No pathology report yet. C/O lightheadedness today. Orthostatics ordered. The blood pressure lying down was 135/57 with a pulse rate of of 70. The blood pressure standing was 78/53 with a pulse rate of 80. She is taking a beta-addie. She is also on Entresto. Denies vertigo, cephalgia, palpitations, shortness of breath at rest, chest pain, nausea/vomiting/abdominal pain, dysuria and calf tenderness. Objective Data Objective Data Vital Signs: Vital Signs Temp Pulse Resp BP Pulse Ox O2 Del Method 98.5 F 66 18 143/66 H 98 Room Air 03/04/25 05:28 03/04/25 07:57 03/04/25 05:28 03/04/25 05:28 03/04/25 05:28 03/04/25 05:28 Oxygen Delivery Method Room Air Weight: 200 lb 11.2 oz Body Mass Index (BMI) 30.4 Intake & Output: Intake and Output for Last 24 Hours 03/02/25 03/03/25 03/04/25 23:59 23:59 23:59 Intake Total 1989 1575 / 1575 960 / 960 Output Total 800 / 800 Balance 1190 / 1190 1575 / 1575 960 / 960 Lab / Micro Data 03/02/25 05:34 03/02/25 05:34 Labs: Laboratory Results - last 24 hr 03/03/25 11:25: POC Glucose 187 H 03/03/25 16:33: POC Glucose 169 H 03/03/25 22:21: POC Glucose 227 H 03/04/25 06:47: POC Glucose 151 H Micro: Microbiology 03/01/25 17:47 Stool C. difficile GDH Antigen & Toxins - Final 03/01/25 17:47 Stool Clostridioides difficile (PCR) - Final Physical Exam Const alert and oriented x3 Constitutional Narrative: No acute apparent distress while sitting in the recliner. General Appearance: cooperative HEENT Mouth: dry mucous membranes Resp clear to auscultation bilaterally Cardio regular rate, regular rhythm, no murmurs and no gallops Cardio Narrative: No ectopy GI GI Narrative: The abdomen is soft and nondistended. Bowel sounds are mildly hypoactive. No guarding with palpation. Extremity no calf tenderness General Extremity: Negative for edema Assessment & Plan Assessment/Plan (1) Debility: (2) Ischemic cerebrovascular accident (CVA): (3) Quadrantanopia of right eye: (4) Right sided weakness: (5) Dysarthria: (6) Ataxia: (7) Lower GI bleed: (8) Diverticulosis: (9) Gastritis: (10) Duodenitis: (11) Colonic mass: (12) Family history of colon cancer in mother: (13) Urinary incontinence: QUALIFIERS: Urinary Incontinence type: unspecified incontinence Qualified Code(s): R32 - Unspecified urinary incontinence (14) Depression: QUALIFIERS: Depression Type: unspecified Qualified Code(s): F32.A - Depression, unspecified (15) Fecal incontinence: (16) Orthostatic hypotension: (17) Clostridium difficile enterocolitis: PLAN: Plan 1. Continue therapy 2. Encourage patient to increase her fluid intake 3. 500 cc of normal saline over 2 hours and then decrease the rate to 75 cc/h for a total of 2 L of IV fluid 4. [facility] and now 5. Recheck orthostatics in the a.m. Charges/Coding Visit Charges Inpatient E&M: 71898 Subs Hosp L2
[2025-03-04 11:32] LABS: Bedside Glucose 204 mg/dL (74-106)
--- NOTE | 2025-03-04 12:48 | CASEMGMT ---
Social Work IDT met with patient and son for Team meeting. Discussed patient's progress in PT/OT/ST/SN. [facility] and continued stay is not guaranteed with each review; advanced notice is not given with LCD. Pt's goal is to return home with son at [facility]. Pt is needing modA for tasks, right side weakness and dysarthria and cognition. Pt was working full-time prior. Pt stated she has attempted to contact her HR department to get FMLA and short term disability paperwork faxed to the Dr to complete. SW explained the DC plan is home with support for LOC or SNF. Pt expressed understanding. noted after colonoscopy, a mass was found in the colon and pathology reports are not back yet. SW to remain available for needs. Dr noted pt and Dr discussed depression. Pt admitted to depression prior, which resulted in lack of compliance prior stroke. Pt agreed to start of antidepressant. Dr recommending counseling and pt receive mental health and PCP care from [facility]. SW provided resources. [facility] will continue to follow for DC planning. Will ReTeam weekly. Latasha Gay [employer] ATTEND[employer]
[2025-03-04] MEDS: 0.9% Normal Saline (1000mL) 1,000 ML 75 ML IV (17:18)
[2025-03-04 17:23] LABS: Bedside Glucose 148 mg/dL (74-106)
[2025-03-04 17:43] LABS: Hematocrit 29.5 % (37-47); Hemoglobin 9.8 g/dL (12.0-15.0)
[2025-03-04 18:37] LABS: Anion Gap 12 (5-15); BUN 27 mg/dL (4-19); BUN/Creat Ratio 23.9 RATIO (10-20); Carbon Dioxide 24.8 mmol/L (21.0-32.0); Chloride 96 mmol/L (98-108); Creatinine, Serum 1.12 mg/dL (0.70-1.20); EST Glomerular Filtration Rate 57 (>60); Estimated Creatinine Clearance 63.82 ml/min (50-250); Glucose 134 mg/dL (70-99); Potassium 3.7 mmol/L (3.3-5.1); Sodium Level 133 mmol/L (133-145)
[2025-03-04 21:31] LABS: Bedside Glucose 146 mg/dL (74-106)
[2025-03-04] MEDS: Atorvastatin Calcium 40 MG Tablet PO (22:16)
[2025-03-04] MEDS: Insulin Glargine-YFGN 100 UNIT/ML Pen 15 UNIT SC (22:17)
[2025-03-04] MEDS: 0.9% Saline Lock 10 ML Syringe IV (23:21)
[2025-03-05] MEDS: Enoxaparin 40 MG/0.4 ML Syringe SC (05:02)
[2025-03-05] MEDS: Vancomycin 125 MG/5 ML Susp PO.SYRINGE PO ×4 (05:03→23:52)
[2025-03-05 06:00] VITALS: BP 132/74; PULSE 72; RESP 16; TEMP 36.6; O2SAT 98; BMI 30.9
[2025-03-05] MEDS: 0.9% Normal Saline (1000mL) 1,000 ML 75 ML IV ×2 (07:08→20:22)
[2025-03-05 07:14] LABS: Bedside Glucose 91 mg/dL (74-106)
[2025-03-05] MEDS: Empagliflozin 10 MG Tablet PO (07:50)
[2025-03-05] MEDS: Bumetanide 2 MG Tablet 1 MG PO (07:51)
[2025-03-05] MEDS: Lactobacillis Acidophilus 1 CAP PO ×2 (07:52→20:07)
[2025-03-05] MEDS: Pantoprazole Sodium 40 MG Tablet PO (07:52)
[2025-03-05 07:53] VITALS: PULSE 72
[2025-03-05] MEDS: Aspirin 81 MG TAB.CHEW PO (07:53)
[2025-03-05] MEDS: Metoprolol(XL)Succ 25 MG Tablet PO ×2 (07:53→20:22)
[2025-03-05] MEDS: Sertraline 50 MG Tablet PO (07:53)
[2025-03-05] MEDS: Clopidogrel Bisulfate 75 MG Tablet PO (07:54)
[2025-03-05] MEDS: Menthol/Lanolin/Calamine/Znox 113 GM Tube 1 APPLIC TOPICAL ×2 (07:54→20:07)
[2025-03-05] MEDS: SACUBITRIL/VALSARTAN 49-51 MG TABLET 1 EACH PO (07:54)
[2025-03-05 08:15] VITALS: PULSE 62
--- NOTE | 2025-03-05 08:57 | PCM.PROGNOTE ---
Subjective Subjective Afebrile VSS -blood pressure over the past 24 hours has ranged from 132/74 to 155/62. Heart rate is between 62 and 72. Maintaining appropriate oxygen saturation on RA-98 to 99% Oral intake - FOOD good FLUIDS IV fluids were started yesterday evening. She is incontinent of urine so I&O not accurate. Blood sugar record was reviewed. Occasional blood sugar mildly over 200...... usually once daily at varying times. No hypoglycemia. Remains incontinent of urine. Sometimes incontinent of stool. She had 3 bowel movements yesterday. Discussed with nursing - Continues to complain of lightheadedness with sitting and standing. She had near syncope this morning when nursing stood her to get orthostatics. BP lying down was 123/48 and sitting up after 3 minutes dropped to 99/55. Reviewed the THERAPY notes Medication list reviewed. Hemoglobin yesterday was 9.8 which is stable. Sodium was 133 and the potassium was 3.7. Chloride is low at 96. The BUN was 27 and the creatinine is 1.12 which is within her baseline....it is actually improved over what it had been. Path on the colon tumor revealed a tubulovillous adenoma with prolapse change. H. Pylori was negative. No dysplasia noted on any of the biopsies taken on 02/27/25. she will follow up with Dr. Santos 2 weeks after DC from rehab. Kelsie denies cephalgia, vertigo, CP, SOB at rest, SOB with exertion, cough, nausea, vomiting, abd pain, constipation, dysuria, calf pain and ankle swelling. Objective Data Objective Data Vital Signs: Vital Signs Temp Pulse Resp BP Pulse Ox O2 Del Method 97.9 F 62 16 132/74 H 98 Room Air 03/05/25 06:00 03/05/25 08:15 03/05/25 06:00 03/05/25 06:00 03/05/25 06:00 03/05/25 06:00 Oxygen Delivery Method Room Air Weight: 203 lb 11.314 oz Body Mass Index (BMI) 30.9 Intake & Output: Intake and Output for Last 24 Hours 03/03/25 03/04/25 03/05/25 23:59 23:59 23:59 Intake Total 1575 / 1575 2360 / 2360 1490 / 1490 Output Total 350 / 350 Balance 1575 / 1575 2009 1490 / 1490 Lab / Micro Data 03/04/25 17:25 03/04/25 17:25 Labs: Laboratory Results - last 24 hr 03/04/25 11:14: POC Glucose 204 H 03/04/25 17:03: POC Glucose 148 H 03/04/25 17:25: Hgb 9.8 L, Hct 29.5 L, Sodium 133, Potassium 3.7, Chloride 96 L, Carbon Dioxide 24.8, Anion Gap 12, BUN 27 H, Creatinine 1.12, Estim Creat Clear Calc 63.82, Est GFR (MDRD) Non-Af 57 L, BUN/Creatinine Ratio 23.9 H, Glucose 134 H, Calcium 9.0 03/04/25 21:11: POC Glucose 146 H 03/05/25 06:44: POC Glucose 91 Micro: Microbiology 03/01/25 17:47 Stool C. difficile GDH Antigen & Toxins - Final 03/01/25 17:47 Stool Clostridioides difficile (PCR) - Final Physical Exam Const alert and oriented x3 Constitutional Narrative: No acute apparent distress while sitting in the recliner. General Appearance: cooperative HEENT Mouth: dry mucous membranes Resp clear to auscultation bilaterally Resp Narrative: mildly diminished throughout, deven in the bases........effort is not great. Cardio regular rate, regular rhythm, no murmurs and no gallops Cardio Narrative: No ectopy GI GI Narrative: The abdomen is soft and nondistended. Bowel sounds are mildly hypoactive. No guarding with palpation. Extremity no calf tenderness General Extremity: Negative for edema Neuro Neuro Narrative: Affect is less flat than it was at initial presentation to rehab. Sleeping well at night. Assessment & Plan Assessment/Plan (1) Debility: (2) Ischemic cerebrovascular accident (CVA): (3) Quadrantanopia of right eye: (4) Right sided weakness: (5) Dysarthria: (6) Ataxia: (7) Lower GI bleed: (8) Diverticulosis: (9) Gastritis: PLAN: H. pylori negative (10) Duodenitis: (11) Colonic mass: PLAN: Tubulovillous adenoma with prolapse change (12) Family history of colon cancer in mother: (13) Urinary incontinence: QUALIFIERS: Urinary Incontinence type: unspecified incontinence Qualified Code(s): R32 - Unspecified urinary incontinence (14) Depression: QUALIFIERS: Depression Type: unspecified Qualified Code(s): F32.A - Depression, unspecified (15) Fecal incontinence: (16) Orthostatic hypotension: (17) Clostridium difficile enterocolitis: PLAN: Plan 1. Continue therapy 2. Hold Bumex......unfortunately it was given early today. 3. Place Entresto on hold. 4. Decrease Glargine to 12 units and increase Jardiance to 25 mg. 5. Continue IV normal saline at 75 cc/h for 2 additional liters and then Hep-Lock. 6. Recheck orthostatics daily in the a.m. x 3 days Charges/Coding Visit Charges Inpatient E&M: 71798 [facility] Hosp L1
[2025-03-05 11:52] LABS: Bedside Glucose 139 mg/dL (74-106)
[2025-03-05 11:54] VITALS: BP 116/59; PULSE 63
[2025-03-05 12:52] VITALS: BMI 30.9
[2025-03-05 17:07] LABS: Bedside Glucose 101 mg/dL (74-106)
[2025-03-05 17:25] VITALS: BP 169/74; PULSE 65; RESP 17; TEMP 36.3; O2SAT 98
[2025-03-05] MEDS: Atorvastatin Calcium 40 MG Tablet PO (20:07)
[2025-03-05] MEDS: Insulin Glargine-YFGN 100 UNIT/ML Pen 12 UNIT SC (20:07)
[2025-03-05 20:22] VITALS: BP 158/64; PULSE 62
[2025-03-05 21:25] LABS: Bedside Glucose 99 mg/dL (74-106)
[2025-03-06 00:02] VITALS: BMI 30.9
[2025-03-06 05:14] VITALS: BMI 31.3
[2025-03-06 05:15] VITALS: BP 153/83; PULSE 73; RESP 15; TEMP 36.6; O2SAT 94
[2025-03-06] MEDS: Enoxaparin 40 MG/0.4 ML Syringe SC (06:35)
[2025-03-06] MEDS: Vancomycin 125 MG/5 ML Susp PO.SYRINGE PO ×3 (06:35→17:10)
[2025-03-06 07:07] LABS: Bedside Glucose 89 mg/dL (74-106)
[2025-03-06] MEDS: Aspirin 81 MG TAB.CHEW PO (08:39)
[2025-03-06] MEDS: Menthol/Lanolin/Calamine/Znox 113 GM Tube 1 APPLIC TOPICAL ×2 (08:39→21:41)
[2025-03-06] MEDS: Lactobacillis Acidophilus 1 CAP PO ×2 (08:39→21:38)
[2025-03-06 08:40] VITALS: BP 153/83; PULSE 73
[2025-03-06] MEDS: Clopidogrel Bisulfate 75 MG Tablet PO (08:40)
[2025-03-06] MEDS: Metoprolol(XL)Succ 25 MG Tablet PO ×2 (08:40→21:38)
[2025-03-06] MEDS: Empagliflozin 25 MG Tablet PO (08:40)
[2025-03-06] MEDS: Sertraline 50 MG Tablet PO (08:40)
[2025-03-06] MEDS: Pantoprazole Sodium 40 MG Tablet PO (08:40)
[2025-03-06 09:13] VITALS: BP 110/53; BP 120/49; BP 85/48; PULSE 64; PULSE 69; PULSE 74
[2025-03-06] MEDS: Midodrine HCl 5 MG Tablet PO ×2 (12:03→17:13)
[2025-03-06] MEDS: 0.9% Normal Saline 1,000 ML 75 ML IV (12:05)
[2025-03-06 12:09] LABS: Bedside Glucose 140 mg/dL (74-106)
[2025-03-06] MEDS: 0.9% Saline Lock 10 ML Syringe IV (12:10)
[2025-03-06 13:06] VITALS: BMI 31.3
[2025-03-06 17:47] VITALS: BP 137/47; PULSE 68; RESP 17; TEMP 36.6; O2SAT 97
[2025-03-06] MEDS: Insulin Lispro 100 UNIT/ML INSULN.PEN SC (17:59)
[2025-03-06 18:04] LABS: Bedside Glucose 244 mg/dL (74-106)
[2025-03-06 21:30] VITALS: BP 147/64; PULSE 75; RESP 17; O2SAT 97; BMI 31.3
[2025-03-06 21:38] VITALS: BP 147/64; PULSE 75
[2025-03-06] MEDS: Insulin Glargine-YFGN 100 UNIT/ML Pen 12 UNIT SC (21:39)
[2025-03-06] MEDS: Atorvastatin Calcium 40 MG Tablet PO (21:39)
[2025-03-06 22:07] LABS: Bedside Glucose 134 mg/dL (74-106)
[2025-03-07] VITALS (7 sets, daily range): BP systolic 119–170; BP diastolic 53–73; PULSE 56–71; RESP 16–17; TEMP 36.3–37; O2SAT 92–98; BMI 31.9; BMI 31.3
[2025-03-07] MEDS: Vancomycin 125 MG/5 ML Susp PO.SYRINGE PO ×4 (00:30→16:48)
[2025-03-07] MEDS: Enoxaparin 40 MG/0.4 ML Syringe SC (06:28)
[2025-03-07 07:02] LABS: Bedside Glucose 112 mg/dL (74-106)
[2025-03-07] MEDS: Lactobacillis Acidophilus 1 CAP PO ×2 (08:04→21:28)
[2025-03-07] MEDS: Empagliflozin 25 MG Tablet PO (08:04)
[2025-03-07] MEDS: Clopidogrel Bisulfate 75 MG Tablet PO (08:04)
[2025-03-07] MEDS: Pantoprazole Sodium 40 MG Tablet PO (08:04)
[2025-03-07] MEDS: Midodrine HCl 5 MG Tablet PO ×3 (08:05→16:50)
[2025-03-07] MEDS: Sertraline 50 MG Tablet PO (08:05)
[2025-03-07] MEDS: Metoprolol(XL)Succ 25 MG Tablet PO ×2 (08:05→21:27)
[2025-03-07] MEDS: Aspirin 81 MG TAB.CHEW PO (08:05)
[2025-03-07] MEDS: Menthol/Lanolin/Calamine/Znox 113 GM Tube 1 APPLIC TOPICAL ×2 (08:07→21:28)
[2025-03-07 11:25] LABS: Bedside Glucose 189 mg/dL (74-106)
[2025-03-07] MEDS: Insulin Lispro 100 UNIT/ML INSULN.PEN SC ×2 (12:23→16:52)
--- NOTE | 2025-03-07 14:28 | PN_ITS ---
Subjective Subjective Afebrile VSS - Maintaining appropriate oxygen saturation on RA Oral intake - FOOD good FLUIDS good Blood sugar record was reviewed. Blood sugars are looking better with increasing Jardiance to 25 mg. The fasting blood sugar this morning was 112 and prior to lunch it was 189. Discussed with nursing - no problems that need addressed. Continent of stool now. sometimes incontinent of urine and at other times misses the hat but, she knows when she has to go. Reviewed the THERAPY notes Medication list reviewed. Denies lightheadedness today. Was started on Midodrine for suspected autonomic neuropathy/orthostatic hypotension. Orthostatics still + with drop in BP from 148/54 sitting to 119/59 standing. she was asymptomatic. Denies lightheadedness today and able to do therapy without c/o lightheadedness. Denies CP, Palpitations, shortness of breath, cephalgia, vertigo, nausea/vomiting/abdominal pain, diarrhea, dysuria and calf pain. Objective Data Objective Data Vital Signs: Vital Signs Temp Pulse Resp BP Pulse Ox O2 Del Method 97.4 F L 68 16 142/53 H 92 Room Air 03/07/25 06:00 03/07/25 11:13 03/07/25 06:00 03/07/25 11:13 03/07/25 06:00 03/07/25 06:00 Oxygen Delivery Method Room Air Weight: 206 lb 12.697 oz Body Mass Index (BMI) 31.3 Intake & Output: Intake and Output for Last 24 Hours 03/05/25 03/06/25 03/07/25 23:59 23:59 23:59 Intake Total 3102.5 / 3102.5 2660 / 2660 1640 / 1640 Output Total 300 / 300 Balance 3102.5 / 3102.5 2360 / 2360 1640 / 1640 Lab / Micro Data 03/04/25 17:25 03/04/25 17:25 Labs: Laboratory Results - last 24 hr 03/06/25 17:10: POC Glucose 244 H 03/06/25 21:36: POC Glucose 134 H 03/07/25 06:40: POC Glucose 112 H 03/07/25 11:04: POC Glucose 189 H Micro: Microbiology 03/01/25 17:47 Stool C. difficile GDH Antigen & Toxins - Final 03/01/25 17:47 Stool Clostridioides difficile (PCR) - Final Physical Exam Const alert and oriented x3 Constitutional Narrative: No acute apparent distress while sitting in the recliner. General Appearance: cooperative HEENT Mouth: dry mucous membranes Resp clear to auscultation bilaterally Resp Narrative: mildly diminished throughout, deven in the bases........effort is not great. Cardio regular rate, regular rhythm, no murmurs and no gallops Cardio Narrative: No ectopy GI GI Narrative: The abdomen is soft and nondistended. Bowel sounds are mildly hypoactive. No guarding with palpation. Extremity no calf tenderness General Extremity: Negative for edema Neuro Neuro Narrative: Affect is less flat than it was at initial presentation to rehab. Sleeping well at night. Assessment & Plan Assessment/Plan (1) Debility: (2) Ischemic cerebrovascular accident (CVA): (3) Quadrantanopia of right eye: (4) Right sided weakness: (5) Dysarthria: (6) Ataxia: (7) Lower GI bleed: (8) Diverticulosis: (9) Gastritis: PLAN: H. pylori negative (10) Duodenitis: (11) Colonic mass: PLAN: Tubulovillous adenoma with prolapse change (12) Family history of colon cancer in mother: (13) Urinary incontinence: QUALIFIERS: Urinary Incontinence type: unspecified incontinence Q ualified Code(s): R32 - Unspecified urinary incontinence (14) Depression: QUALIFIERS: Depression Type: unspecified Qualified Code(s): F32.A - Depression, unspecified (15) Fecal incontinence: (16) Orthostatic hypotension: (17) Clostridium difficile enterocolitis: PLAN: Plan 1. Continue therapy 2. Continue midodrine for autonomic neuropathy with hypotension. 3. continue Vancomycin for C.DIFF 4. CBC and BMP in the AM 5. Continue to monitor the Accu-Cheks AC and at bedtime. If she continues to recover are occasional lispro will likely consider adding Glucophage to the current drug regimen. diarrhea is much better with tx of C.DIFF 6. Continue to hold Entresto due to severe orthostatic hypotension. Continue to hold Bumex. 7. Continue metoprolol 25 mg twice daily. 8. Weight is 206 pounds today which is stable from yesterday. Rather than restarting Bumex will institute a fluid restriction of 1500 cc orally daily 9. will defer to cardiology to manage the cardiac meds for CM/reduced EF. Management of this patient is difficult due to multiple comorbid conditions and set backs due to GI bleed, C.DIFF, newly recognized autonomic neuropathy with severe orthostatic hypotension. Can not determine yet if she will go home at DC or on to an SNF.......will definitely need assistance if going home.......will need to discuss with family. Charges/Coding Visit Charges Inpatient E&M: 96829 [facility] Hosp L1
[2025-03-07 17:16] LABS: Bedside Glucose 171 mg/dL (74-106)
[2025-03-07] MEDS: Atorvastatin Calcium 40 MG Tablet PO (21:28)
[2025-03-07] MEDS: Insulin Glargine-YFGN 100 UNIT/ML Pen 12 UNIT SC (21:28)
[2025-03-07 22:02] LABS: Bedside Glucose 155 mg/dL (74-106)
[2025-03-08] VITALS (7 sets, daily range): BP systolic 144–162; BP diastolic 59–66; PULSE 57–70; RESP 16; TEMP 36.3–36.6; O2SAT 94–99; BMI 32.1
[2025-03-08] MEDS: Vancomycin 125 MG/5 ML Susp PO.SYRINGE PO ×4 (00:11→16:49)
[2025-03-08] MEDS: Enoxaparin 40 MG/0.4 ML Syringe SC (06:00)
[2025-03-08 06:10] LABS: Hematocrit 25.7 % (37-47); Hemoglobin 8.5 g/dL (12.0-15.0); Mean Corp Hgb Conc 33.1 g/dL (32-36); Mean Corpuscular Hgb 30.6 pg (27.0-32.0); Mean Corpuscular Volume 92.4 fL (81-99); Platelet Count 357 K/mm3 (150-450); RBC Distribution Width CV 14.1 % (11.6-14.6); RBC Distribution Width SD 47.3 fl (35.1-43.9); Red Blood Count 2.78 M/mm3 (4.2-5.4); White Blood Count 7.1 K/mm3 (4.4-11.0)
[2025-03-08 06:29] LABS: Anion Gap 9 (5-15); BUN 14 mg/dL (4-19); BUN/Creat Ratio 18.3 RATIO (10-20); Calcium,Total 8.9 mg/dL (7.6-11.0); Carbon Dioxide 24.2 mmol/L (21.0-32.0); Chloride 104 mmol/L (98-108); Creatinine, Serum 0.76 mg/dL (0.70-1.20); EST Glomerular Filtration Rate 90 (>60); Estimated Creatinine Clearance 95.45 ml/min (50-250); Glucose 105 mg/dL (70-99); Magnesium 2.1 mg/dL (1.5-2.2); Potassium 3.6 mmol/L (3.3-5.1); Sodium Level 137 mmol/L (133-145)
[2025-03-08 06:43] LABS: Bedside Glucose 102 mg/dL (74-106)
[2025-03-08] MEDS: Pantoprazole Sodium 40 MG Tablet PO (07:29)
[2025-03-08] MEDS: Midodrine HCl 5 MG Tablet PO ×3 (07:29→16:49)
[2025-03-08] MEDS: Sertraline 50 MG Tablet PO (07:29)
[2025-03-08] MEDS: Aspirin 81 MG TAB.CHEW PO (07:29)
[2025-03-08] MEDS: Lactobacillis Acidophilus 1 CAP PO ×2 (07:30→21:45)
[2025-03-08] MEDS: Clopidogrel Bisulfate 75 MG Tablet PO (07:30)
[2025-03-08] MEDS: Empagliflozin 25 MG Tablet PO (07:30)
[2025-03-08] MEDS: Metoprolol(XL)Succ 25 MG Tablet PO ×2 (07:32→21:45)
[2025-03-08] MEDS: Menthol/Lanolin/Calamine/Znox 113 GM Tube 1 APPLIC TOPICAL ×2 (09:20→21:45)
[2025-03-08 11:23] LABS: Bedside Glucose 150 mg/dL (74-106)
[2025-03-08] MEDS: Insulin Lispro 100 UNIT/ML INSULN.PEN SC (11:26)
--- NOTE | 2025-03-08 13:18 | PCM.PROGNOTE ---
Subjective Subjective Afebrile VSS - Maintaining appropriate oxygen saturation on RA Oral intake - FOOD good FLUIDS good. She has been started on fluid restriction to help control edema/congestive heart failure. She is also on Bumex 1 mg daily Weight today is 212 pounds which is up from 206 pounds yesterday. Intake and output are not accurate due to urinary incontinence. Blood sugar control is good with no blood sugars over 200 since Tuesday. Serum bicarb today is normal and she is tolerating the increase in Jardiance to 25 mg daily with no metabolic acidosis. Discussed with nursing - no problems that need addressed Reviewed the THERAPY notes Medication list reviewed. All lab from this morning was personally reviewed. White blood cell count is normal at 7.1. Hemoglobin today is 8.5 which is down from 9.8 on 03/04/2025. I suspect this is due to volume overload. Platelets are within normal limits. Sodium is 137 and the potassium is 3.6. The BUN is down to 14 and the creatinine is down to 0.76 from 1.12 on 03/04/2025. Magnesium is good at 2.1. Kelsie denies orthopnea, PND, TERRY, lightheadedness, N/V/abd cramping, dysuria and calf pain. Denies CP. Last several BM' have been formed. She tells me that she thinks her depression is starting to improve. She is sleeping well at night. Good appetite. Objective Data Objective Data Vital Signs: Vital Signs Temp Pulse Resp BP Pulse Ox O2 Del Method 97.8 F 57 L 16 144/61 H 94 Room Air 03/08/25 06:00 03/08/25 11:36 03/08/25 06:00 03/08/25 11:36 03/08/25 06:00 03/08/25 07:40 Oxygen Delivery Method Room Air Weight: 212 lb 4.882 oz Body Mass Index (BMI) 32.1 Intake & Output: Intake and Output for Last 24 Hours 03/06/25 03/07/25 03/08/25 23:59 23:59 23:59 Intake Total 2660 / 2660 2440 / 2440 390 / 390 Output Total 300 / 300 400 / 400 Balance 2360 / 2360 2040 / 2040 390 / 390 Lab / Micro Data 03/08/25 05:02 03/08/25 05:02 Labs: Laboratory Results - last 24 hr 03/07/25 16:51: POC Glucose 171 H 03/07/25 21:24: POC Glucose 155 H 03/08/25 05:02: WBC 7.1, RBC 2.78 L, Hgb 8.5 L, Hct 25.7 L, MCV 92.4, MCH 30.6, MCHC 33.1, RDW Std Deviation 47.3 H, RDW Coeff of Briseida 14.1, Plt Count 357, MPV 12.0, Sodium 137, Potassium 3.6, Chloride 104, Carbon Dioxide 24.2, Anion Gap 9, BUN 14, Creatinine 0.76, Estim Creat Clear Calc 95.45, Est GFR (MDRD) Non-Af 90, BUN/Creatinine Ratio 18.3, Glucose 105 H, Calcium 8.9, Magnesium 2.1 03/08/25 06:04: POC Glucose 102 03/08/25 11:04: POC Glucose 150 H Micro: Microbiology 03/01/25 17:47 Stool C. difficile GDH Antigen & Toxins - Final 03/01/25 17:47 Stool Clostridioides difficile (PCR) - Final Physical Exam Const alert, oriented x3 and no apparent distress Constitutional Narrative: Much more alert and engaged since admission to rehab. Making good eye contact with me when we speak now. Voice is projecting well. She has a more positive outlook. Starting to recognize that she has always taken care of everyone else and she needs to focus on taking care of herself so she can stay healthy and out of the hospital. HEENT head/scalp atraumatic and moist oral mucous membranes HEENT Narrative: No thrush Resp clear to auscultation bilaterally Resp Narrative: Excellent air exchange throughout. Normal respiratory effort. No conversational dyspnea. Cardio regular rate, regular rhythm, S1 normal heart sound and S2 normal heart sound Cardio Narrative: Physiologic split S1. No gallops. No ectopy. No murmur appreciated. GI normal to inspection, nondistended, normoactive bowel sounds, soft to palpation and non-tender Extremity no calf tenderness Extremity Narrative: No pitting edema of the posterior thighs. Trace ankle edema bilaterally. No pretibial edema. Skin Rashes: no rashes Neuro Neuro Narrative: Making good progress with therapy. Assessment & Plan Assessment/Plan (1) Debility: (2) Ischemic cerebrovascular accident (CVA): (3) Quadrantanopia of right eye: (4) Right sided weakness: (5) Dysarthria: (6) Ataxia: (7) Lower GI bleed: (8) Diverticulosis: (9) Gastritis: PLAN: H. pylori negative (10) Duodenitis: (11) Colonic mass: PLAN: Tubulovillous adenoma with prolapse change (12) Family history of colon cancer in mother: (13) Urinary incontinence: QUALIFIERS: Urinary Incontinence type: unspecified incontinence Qualified Code(s): R32 - Unspecified urinary incontinence (14) Depression: QUALIFIERS: Depression Type: unspecified Qualified Code(s): F32.A - Depression, unspecified (15) Fecal incontinence: (16) Orthostatic hypotension: (17) Clostridium difficile enterocolitis: PLAN: Plan 1. Continue therapy 2. Wt has increased but, no physical findings that would indicate she has volume overload. She has a reduced EF. Will restart Bumex in the AM now that the profuse diarrhea has resolved and institute a 1500 cc fluid restriction. Try and maintain wt around 210-212. 3. Recheck a BMP on Tuesday and an HH. 4. Recheck orthostatics Tuesday AM. If she is tilt negative consider a trial of holding Midodrine.........she is adequately hydrated now. 5. Continue Sertraline at the current dose. 6. Plan follow up for primary care at [facility] - they can also take care of medication and counselling for depression. Also will need follow up with cardiology and neurology. 7. Continue to hold Entresto. 8. Consider adding a low dose JADE or ARB for reduced EF. Charges/Coding Visit Charges Inpatient E&M: 44069 Subs Hosp L1
[2025-03-08 15:02] LABS: Hematocrit 26.2 % (37-47)
[2025-03-08 16:02] LABS: Bedside Glucose 143 mg/dL (74-106)
[2025-03-08] MEDS: Atorvastatin Calcium 40 MG Tablet PO (21:45)
[2025-03-08] MEDS: Insulin Glargine-YFGN 100 UNIT/ML Pen 12 UNIT SC (21:47)
[2025-03-08 22:02] LABS: Bedside Glucose 113 mg/dL (74-106)
[2025-03-09] MEDS: Vancomycin 125 MG/5 ML Susp PO.SYRINGE PO ×5 (01:00→23:11)
[2025-03-09 06:00] VITALS: BP 153/70; PULSE 75; RESP 18; TEMP 36.6; O2SAT 95; BMI 31.6
[2025-03-09] MEDS: Enoxaparin 40 MG/0.4 ML Syringe SC (06:13)
[2025-03-09 06:19] LABS: Bedside Glucose 87 mg/dL (74-106)
[2025-03-09] MEDS: Midodrine HCl 5 MG Tablet PO (09:07)
[2025-03-09 09:08] VITALS: PULSE 76
[2025-03-09] MEDS: Empagliflozin 25 MG Tablet PO (09:08)
[2025-03-09] MEDS: Metoprolol(XL)Succ 25 MG Tablet PO ×2 (09:08→21:47)
[2025-03-09] MEDS: Pantoprazole Sodium 40 MG Tablet PO (09:08)
[2025-03-09] MEDS: Lactobacillis Acidophilus 1 CAP PO ×2 (09:08→21:45)
[2025-03-09] MEDS: Aspirin 81 MG TAB.CHEW PO (09:08)
[2025-03-09] MEDS: Sertraline 50 MG Tablet PO (09:08)
[2025-03-09] MEDS: Clopidogrel Bisulfate 75 MG Tablet PO (09:09)
[2025-03-09] MEDS: Menthol/Lanolin/Calamine/Znox 113 GM Tube 1 APPLIC TOPICAL ×2 (09:14→21:45)
[2025-03-09 09:34] VITALS: BMI 31.6
[2025-03-09] MEDS: Bumetanide 0.5 MG Tablet 1 MG PO (12:02)
[2025-03-09 12:06] VITALS: BP 133/61; BP 159/63; BP 164/66; PULSE 59; PULSE 66
[2025-03-09 13:36] LABS: Bedside Glucose 88 mg/dL (74-106)
[2025-03-09 17:35] LABS: Bedside Glucose 131 mg/dL (74-106)
[2025-03-09 18:00] VITALS: BP 162/58; PULSE 63; RESP 16; TEMP 36.7; O2SAT 97
[2025-03-09 20:27] VITALS: BMI 31.6
[2025-03-09] MEDS: 0.9% Saline Lock 10 ML Syringe IV (21:33)
[2025-03-09 21:39] LABS: Bedside Glucose 128 mg/dL (74-106)
[2025-03-09] MEDS: Atorvastatin Calcium 40 MG Tablet PO (21:45)
[2025-03-09] MEDS: Insulin Glargine-YFGN 100 UNIT/ML Pen 10 UNIT SC (21:46)
[2025-03-09 21:47] VITALS: PULSE 63
[2025-03-10] VITALS (8 sets, daily range): BP systolic 115–160; BP diastolic 55–79; PULSE 66–94; RESP 15–16; TEMP 36.3–36.7; O2SAT 93–95; BMI 31.6; BMI 31.8
[2025-03-10] MEDS: Enoxaparin 40 MG/0.4 ML Syringe SC (05:20)
[2025-03-10] MEDS: Vancomycin 125 MG/5 ML Susp PO.SYRINGE PO ×4 (05:20→23:51)
[2025-03-10 06:57] LABS: Bedside Glucose 85 mg/dL (74-106)
[2025-03-10] MEDS: Aspirin 81 MG TAB.CHEW PO (07:55)
[2025-03-10] MEDS: Bumetanide 0.5 MG Tablet 1 MG PO (09:07)
[2025-03-10] MEDS: Empagliflozin 25 MG Tablet PO (09:08)
[2025-03-10] MEDS: Sertraline 50 MG Tablet PO (09:08)
[2025-03-10] MEDS: Metoprolol(XL)Succ 25 MG Tablet PO ×2 (09:08→21:49)
[2025-03-10] MEDS: Clopidogrel Bisulfate 75 MG Tablet PO (09:08)
[2025-03-10] MEDS: Pantoprazole Sodium 40 MG Tablet PO (09:08)
[2025-03-10] MEDS: Lactobacillis Acidophilus 1 CAP PO ×2 (09:08→21:47)
[2025-03-10] MEDS: Menthol/Lanolin/Calamine/Znox 113 GM Tube 1 APPLIC TOPICAL ×2 (09:09→21:47)
[2025-03-10 11:47] LABS: Bedside Glucose 108 mg/dL (74-106)
[2025-03-10 17:21] LABS: Bedside Glucose 116 mg/dL (74-106)
[2025-03-10] MEDS: Insulin Glargine-YFGN 100 UNIT/ML Pen 10 UNIT SC (21:47)
[2025-03-10] MEDS: Atorvastatin Calcium 40 MG Tablet PO (21:49)
[2025-03-10] MEDS: Senna/Docusate Sodium 1 Tablet 2 TABLET PO (21:49)
[2025-03-10 22:58] LABS: Bedside Glucose 136 mg/dL (74-106)
[2025-03-11] VITALS (7 sets, daily range): BP systolic 136–165; BP diastolic 48–68; PULSE 63–88; RESP 16–17; TEMP 36.5–36.8; O2SAT 93–96; BMI 31.0
[2025-03-11] MEDS: Enoxaparin 40 MG/0.4 ML Syringe SC (05:40)
[2025-03-11] MEDS: Vancomycin 125 MG/5 ML Susp PO.SYRINGE PO ×4 (05:41→23:37)
[2025-03-11 06:50] LABS: Bedside Glucose 101 mg/dL (74-106)
[2025-03-11 06:59] LABS: Anion Gap 12 (5-15); BUN 15 mg/dL (4-19); BUN/Creat Ratio 16.2 RATIO (10-20); Calcium,Total 9.2 mg/dL (7.6-11.0); Chloride 101 mmol/L (98-108); Creatinine, Serum 0.93 mg/dL (0.70-1.20); EST Glomerular Filtration Rate 71 (>60); Estimated Creatinine Clearance 77.63 ml/min (50-250); Glucose 109 mg/dL (70-99); Potassium 3.7 mmol/L (3.3-5.1); Sodium Level 139 mmol/L (133-145)
[2025-03-11] MEDS: Empagliflozin 25 MG Tablet PO (08:02)
[2025-03-11] MEDS: Clopidogrel Bisulfate 75 MG Tablet PO (08:02)
[2025-03-11] MEDS: Lactobacillis Acidophilus 1 CAP PO ×2 (08:02→20:55)
[2025-03-11] MEDS: Sertraline 50 MG Tablet PO (08:02)
[2025-03-11] MEDS: Pantoprazole Sodium 40 MG Tablet PO (08:02)
[2025-03-11] MEDS: Aspirin 81 MG TAB.CHEW PO (08:02)
[2025-03-11] MEDS: Metoprolol(XL)Succ 25 MG Tablet PO ×2 (08:02→20:55)
[2025-03-11] MEDS: Bumetanide 0.5 MG Tablet 1 MG PO (09:14)
--- NOTE | 2025-03-11 09:42 | PCM.PROGNOTE ---
Subjective Subjective Kelsie was seen on team rounds today. Her Sister Sana participated by phone. Afebrile VSS -blood pressure over the weekend has ranged from 115/56 on Tuesday AM while standing to 158/67 last evening. Heart rate is within normal limits. Maintaining appropriate oxygen saturation on RA Oral intake - FOOD good FLUIDS on fluid restriction of 1500 cc daily. The blood sugar record was reviewed and the blood sugars are under excellent control with no hypoglycemia. No bowel movement since 03/07/2025 recorded. Got Senna yesterday....ordered PRN The weight today is 209 pounds and 11 ounces which is stable Discussed with nursing - no problems that need addressed Reviewed the THERAPY notes Medication list reviewed. All lab drawn this a.m. was personally reviewed. Sodium is 139 and the potassium is stable at 3.7. The BUN is 15 with a creatinine of 0.93 which is stable. Calcium is within normal limits. Denies lightheadedness, CP, SOB, CLEMOSN, abd pain, diarrhea, dysuria and calf pain. Wanting to know when the fluid restriction can be discontinued. Doing well on 1500 a day fluid restriction and Bumex 1 mg daily. Objective Data Objective Data Vital Signs: Vital Signs Temp Pulse Resp BP Pulse Ox O2 Del Method 98.2 F 80 16 140/63 H 93 Room Air 03/11/25 06:00 03/11/25 08:18 03/11/25 06:00 03/11/25 08:18 03/11/25 06:00 03/11/25 06:00 Oxygen Delivery Method Room Air Weight: 204 lb 12.951 oz Body Mass Index (BMI) 31.0 Intake & Output: Intake and Output for Last 24 Hours 03/09/25 03/10/25 03/11/25 23:59 23:59 23:59 Intake Total 1500 / 1500 1270 / 1270 220 / 220 Output Total 400 / 400 Balance 1100 / 1100 1270 / 1270 220 / 220 Lab / Micro Data 03/08/25 14:48 03/11/25 06:02 Labs: Laboratory Results - last 24 hr 03/10/25 11:28: POC Glucose 108 H 03/10/25 17:03: POC Glucose 116 H 03/10/25 21:29: POC Glucose 136 H 03/11/25 06:02: Sodium 139, Potassium 3.7, Chloride 101, Carbon Dioxide 26.0, Anion Gap 12, BUN 15, Creatinine 0.93, Estim Creat Clear Calc 77.63, Est GFR (MDRD) Non-Af 71, BUN/Creatinine Ratio 16.2, Glucose 109 H, Calcium 9.2 03/11/25 06:32: POC Glucose 101 Micro: Microbiology 03/01/25 17:47 Stool C. difficile GDH Antigen & Toxins - Final 03/01/25 17:47 Stool Clostridioides difficile (PCR) - Final Physical Exam Const alert, oriented x3 and no apparent distress Constitutional Narrative: Better modulation to her voice and she is not as flat. Making good eye contact with me and is engaged in what we are saying. General Appearance: cooperative Resp Resp Narrative: Diminished in the bases but clear to auscultation. Not tachypneic, no conversational dyspnea. Cardio regular rate, regular rhythm, no murmurs, no rub and no gallops Cardio Narrative: No ectopy GI normal to inspection, nondistended, normoactive bowel sounds, soft to palpation and non-tender GI Narrative: Small BM today but, had not been taking any stool softeners........Had 1 dose last night. Extremity no calf tenderness Extremity Narrative: Weight is stable. General Extremity: Negative for edema Skin Rashes: no rashes Neuro Neuro Narrative: Making good progress with therapy. Was able to ambulate 200 feet today with a wheeled walker on various surfaces. She was contact-guard assist. Needed only minimal assistance to go from a sitting to standing at the bedside. Contact-guard assist for bathing and grooming. Supervision for upper body dressing and minimal assistance required for lower body dressing today. Contact-guard for toileting and toilet transfer. Still requiring moderate assistance with tub/shower transfer. Psych Psych Narrative: Affect is not as flat. More engaged in what is being said to her. Does not ask many questions. Sleeping well at night and has good appetite and intake. Very alert. Assessment & Plan Assessment/Plan (1) Debility: (2) Ischemic cerebrovascular accident (CVA): (3) Quadrantanopia of right eye: (4) Right sided weakness: (5) Dysarthria: (6) Ataxia: (7) Lower GI bleed: (8) Diverticulosis: (9) Gastritis: (10) Duodenitis: (11) Colonic mass: (12) Family history of colon cancer in mother: (13) Urinary incontinence: QUALIFIERS: Urinary Incontinence type: unspecified incontinence Qualified Code(s): R32 - Unspecified urinary incontinence (14) Depression: QUALIFIERS: Depression Type: unspecified Qualified Code(s): F32.A - Depression, unspecified (15) Fecal incontinence: (16) Orthostatic hypotension: (17) Clostridium difficile enterocolitis: PLAN: Plan 1. Continue therapy 2. Orthostatics are negative this a.m. and she has not received Midodrine since Tuesday AM.....it has been discontinued. 3. Continue Vancomycin for a total of 14 days and then DC. 4. Recheck a CBC, BMP and magnesium on a.m. 5. Recheck orthostatics ......If she continues to be tilt negative, with a stable creat and stable wt on Bumex 1 mg daily consider restarting Entresto at a reduced dose of 24mg/26mg? or defer to cardiology? Or just add a low dose ARB and defer to cardiology to restart Entresto if indicated? 6. Start potassium chloride 10 MEQ daily and goal K is 4 or greater. 7. We discussed psychotherapy and she is willing to see someone post [place]. She is open to going to an SNF [place] from rehab in necessary. 8. Follow up at [facility] for PCP and for tx for depression. Also needs follow up with cardiology (JEREMIAH) and with neuro, Dr. Buchanan. Will not have anybody to stay with her during the day if she considers going home at [place] from rehab. Not ready to be home without assist yet. Sons live with her but, they are at work during the day. Dtr is currently incarcerated but, may be out in a few weeks? Charges/Coding Visit Charges Inpatient E&M: 45214 Subs Hosp L2
[2025-03-11] MEDS: Potassium Chloride Oral Tablet 10 MEQ PO (11:16)
[2025-03-11 11:25] LABS: Bedside Glucose 169 mg/dL (74-106)
--- NOTE | 2025-03-11 12:47 | CASEMGMT ---
Social Work IDT met with patient, then sister via conference call for Team meeting. Discussed patient's progress in PT/OT/ST/SN. Educated to [employer] CM insurance with NRD 03/13 and continued stay is not guaranteed. Pt is making progress and IDT recommending continued stay in [place] for ongoing improvements to be able to return home alone. If pt cannot return home alone at time of DC, pt is agreeable to DC to a SNF. SW educated to precert process and OOP cost if precert is denied. SW offered to provide a list of INN SNFs, pt agreed. SW provided list of SNFs in preferred geographical area, INN with pt?s insurance, including quality and resource data via [facility]Port Guide. SW will continue to follow for DC planning and support. Pt shared with that she is agreeable to mental health counseling after DC. Latasha Gay [employer] OPERATOR
[2025-03-11] MEDS: Atorvastatin Calcium 40 MG Tablet PO (20:54)
[2025-03-11] MEDS: Menthol/Lanolin/Calamine/Znox 113 GM Tube 1 APPLIC TOPICAL (20:56)
[2025-03-11] MEDS: Insulin Glargine-YFGN 100 UNIT/ML Pen 10 UNIT SC (21:01)
[2025-03-11 21:26] LABS: Bedside Glucose 157 mg/dL (74-106)
[2025-03-12] MEDS: Enoxaparin 40 MG/0.4 ML Syringe SC (05:13)
[2025-03-12] MEDS: Vancomycin 125 MG/5 ML Susp PO.SYRINGE PO ×3 (05:13→17:03)
[2025-03-12 05:44] VITALS: BP 154/61; PULSE 65; RESP 16; TEMP 36.7; O2SAT 97; BMI 31.2
[2025-03-12 06:31] LABS: Bedside Glucose 83 mg/dL (74-106)
[2025-03-12 07:42] VITALS: PULSE 65
[2025-03-12] MEDS: Pantoprazole Sodium 40 MG Tablet PO (07:42)
[2025-03-12] MEDS: Empagliflozin 25 MG Tablet PO (07:42)
[2025-03-12] MEDS: Clopidogrel Bisulfate 75 MG Tablet PO (07:42)
[2025-03-12] MEDS: Metoprolol(XL)Succ 25 MG Tablet PO ×2 (07:42→21:35)
[2025-03-12] MEDS: Sertraline 50 MG Tablet PO (07:42)
[2025-03-12] MEDS: Lactobacillis Acidophilus 1 CAP PO ×2 (07:43→21:35)
[2025-03-12] MEDS: Bumetanide 0.5 MG Tablet 1 MG PO (07:43)
[2025-03-12] MEDS: Senna/Docusate Sodium 1 Tablet 2 TABLET PO (07:43)
[2025-03-12] MEDS: Potassium Chloride Oral Tablet 10 MEQ PO (07:43)
[2025-03-12] MEDS: Aspirin 81 MG TAB.CHEW PO (07:43)
[2025-03-12] MEDS: Menthol/Lanolin/Calamine/Znox 113 GM Tube 1 APPLIC TOPICAL ×2 (07:56→21:34)
[2025-03-12 15:07] VITALS: BMI 31.2
--- NOTE | 2025-03-12 17:28 | PCM.PROGNOTE ---
Subjective Subjective Afebrile VSS -blood pressure over the past 24 hours has ranged from 140/63 to 165/60. Heart rate has ranged from 63-88. Maintaining appropriate oxygen saturation on RA Oral intake - FOOD good FLUIDS good, staying within her fluid restriction of 1500 cc daily. Blood sugars are well-controlled. Fasting blood sugar this morning was 83 and it was 157 at at bedtime. Discussed with nursing - no problems that need addressed Reviewed the THERAPY notes Medication list reviewed. Denies lightheadedness, palpitations, shortness of breath at rest, chest pain, nausea/vomiting/abdominal pain/diarrhea, dysuria and calf pain. Objective Data Objective Data Vital Signs: Vital Signs Temp Pulse Resp BP Pulse Ox O2 Del Method 98.1 F 65 16 154/61 H 97 Room Air 03/12/25 05:44 03/12/25 07:42 03/12/25 05:44 03/12/25 05:44 03/12/25 05:44 03/12/25 05:44 Oxygen Delivery Method Room Air Weight: 206 lb 5.643 oz Body Mass Index (BMI) 31.2 Intake & Output: Intake and Output for Last 24 Hours 03/10/25 03/11/25 03/12/25 23:59 23:59 23:59 Intake Total 1270 / 1270 1480 / 1480 840 / 840 Output Total 150 / 150 350 / 350 Balance 1270 / 1270 1330 / 1330 490 / 490 Lab / Micro Data 03/08/25 14:48 03/11/25 06:02 Labs: Laboratory Results - last 24 hr 03/11/25 20:59: POC Glucose 157 H 03/12/25 06:13: POC Glucose 83 Micro: Microbiology 03/01/25 17:47 Stool C. difficile GDH Antigen & Toxins - Final 03/01/25 17:47 Stool Clostridioides difficile (PCR) - Final Physical Exam Const alert, oriented x3 and no apparent distress Constitutional Narrative: good interactions with staff and more conversant. General Appearance: cooperative Resp Resp Narrative: Diminished in the bases but clear to auscultation. Not tachypneic, no conversational dyspnea. Cardio regular rate, regular rhythm, no murmurs, no rub and no gallops Cardio Narrative: No ectopy GI normal to inspection, nondistended, normoactive bowel sounds, soft to palpation and non-tender GI Narrative: Small BM today but, had not been taking any stool softeners........Had 1 dose last night. Extremity no calf tenderness Extremity Narrative: Weight is stable. General Extremity: Negative for edema Skin Rashes: no rashes Psych Psych Narrative: Affect is not as flat. More engaged in what is being said to her. Sleeping well at night and has good appetite and intake. Very alert. Assessment & Plan Assessment/Plan (1) Debility: (2) Ischemic cerebrovascular accident (CVA): (3) Quadrantanopia of right eye: (4) Right sided weakness: (5) Dysarthria: (6) Ataxia: (7) Lower GI bleed: (8) Diverticulosis: (9) Gastritis: (10) Duodenitis: (11) Colonic mass: (12) Family history of colon cancer in mother: (13) Urinary incontinence: QUALIFIERS: Urinary Incontinence type: unspecified incontinence Qualified Code(s): R32 - Unspecified urinary incontinence (14) Depression: QUALIFIERS: Depression Type: unspecified Qualified Code(s): F32.A - Depression, unspecified (15) Fecal incontinence: (16) Orthostatic hypotension: (17) Clostridium difficile enterocolitis: PLAN: Plan 1. Continue therapy 2. Add Cozaar 25 mg daily to the current drug regimen. 3. Continue to hold Entresto. If the orthostatics are negative on a.m. and the kidney function is stable will likely DC Cozaar and restart Entresto at a lower dose. 4. Decrease the at bedtime glargine to 8 units. May be able to get rid of glargine and use Jardiance and possibly low dose Glucophage if needed to control the BS's. 5. Continue Bumex 1 mg p.o. daily and continue to monitor daily weights. Urine output is inaccurate secondary to urinary incontinence. Charges/Coding Visit Charges Inpatient E&M: 81845 [facility] Hosp L1
[2025-03-12 18:00] VITALS: BP 155/66; PULSE 61; RESP 16; TEMP 36.4; O2SAT 95
[2025-03-12] MEDS: Losartan Potassium 25 MG Tablet PO (18:42)
[2025-03-12 21:00] VITALS: BP 155/64; PULSE 61; RESP 16; O2SAT 95; BMI 31.2
[2025-03-12] MEDS: Insulin Glargine-YFGN 100 UNIT/ML Pen 8 UNIT SC (21:29)
[2025-03-12] MEDS: Atorvastatin Calcium 40 MG Tablet PO (21:34)
[2025-03-12 21:35] VITALS: BP 155/64; PULSE 61
[2025-03-12 22:06] LABS: Bedside Glucose 111 mg/dL (74-106)
[2025-03-13] MEDS: Vancomycin 125 MG/5 ML Susp PO.SYRINGE PO ×4 (00:46→18:03)
[2025-03-13] MEDS: Enoxaparin 40 MG/0.4 ML Syringe SC (05:12)
[2025-03-13 05:32] VITALS: BP 164/57; PULSE 69; RESP 16; TEMP 36.8; BMI 30.9
[2025-03-13 06:53] LABS: Bedside Glucose 80 mg/dL (74-106)
[2025-03-13 09:06] VITALS: PULSE 69
[2025-03-13] MEDS: Lactobacillis Acidophilus 1 CAP PO ×2 (09:06→21:00)
[2025-03-13] MEDS: Pantoprazole Sodium 40 MG Tablet PO (09:06)
[2025-03-13] MEDS: Clopidogrel Bisulfate 75 MG Tablet PO (09:06)
[2025-03-13] MEDS: Losartan Potassium 25 MG Tablet PO (09:06)
[2025-03-13] MEDS: Empagliflozin 25 MG Tablet PO (09:06)
[2025-03-13] MEDS: Metoprolol(XL)Succ 25 MG Tablet PO ×2 (09:06→21:01)
[2025-03-13] MEDS: Bumetanide 0.5 MG Tablet 1 MG PO (09:07)
[2025-03-13] MEDS: Aspirin 81 MG TAB.CHEW PO (09:07)
[2025-03-13] MEDS: Menthol/Lanolin/Calamine/Znox 113 GM Tube 1 APPLIC TOPICAL ×2 (09:07→21:00)
[2025-03-13] MEDS: Sertraline 50 MG Tablet PO (09:07)
[2025-03-13] MEDS: Potassium Chloride Oral Tablet 10 MEQ PO (09:07)
[2025-03-13 13:43] VITALS: BMI 30.9
[2025-03-13 18:00] VITALS: BP 128/55; PULSE 64; RESP 17; TEMP 36.3; O2SAT 97
[2025-03-13 20:45] VITALS: BP 128/62; PULSE 61; RESP 17; O2SAT 97; BMI 30.9
[2025-03-13] MEDS: Atorvastatin Calcium 40 MG Tablet PO (21:00)
[2025-03-13] MEDS: Insulin Glargine-YFGN 100 UNIT/ML Pen 8 UNIT SC (21:00)
[2025-03-13 21:01] VITALS: BP 128/62; PULSE 61
[2025-03-13 21:46] LABS: Bedside Glucose 158 mg/dL (74-106)
[2025-03-14] VITALS (7 sets, daily range): BP systolic 130–169; BP diastolic 46–69; PULSE 63–80; RESP 16; TEMP 36.6–36.7; O2SAT 94–97; BMI 30.3
[2025-03-14] MEDS: Vancomycin 125 MG/5 ML Susp PO.SYRINGE PO ×5 (00:23→23:15)
[2025-03-14] MEDS: Enoxaparin 40 MG/0.4 ML Syringe SC (05:42)
[2025-03-14 05:44] LABS: Hematocrit 27.8 % (37-47); Hemoglobin 9.3 g/dL (12.0-15.0); Mean Corp Hgb Conc 33.5 g/dL (32-36); Mean Corpuscular Volume 92.7 fL (81-99); Mean Platelet Vol. 11.2 fl (6.2-12.0); Platelet Count 278 K/mm3 (150-450); RBC Distribution Width CV 14.7 % (11.6-14.6); RBC Distribution Width SD 49.8 fl (35.1-43.9); White Blood Count 4.9 K/mm3 (4.4-11.0)
[2025-03-14 06:13] LABS: Anion Gap 9 (5-15); BUN 18 mg/dL (4-19); BUN/Creat Ratio 19.7 RATIO (10-20); Calcium,Total 9.1 mg/dL (7.6-11.0); Carbon Dioxide 31.2 mmol/L (21.0-32.0); Chloride 97 mmol/L (98-108); EST Glomerular Filtration Rate 73 (>60); Estimated Creatinine Clearance 79.33 ml/min (50-250); Glucose 101 mg/dL (70-99); Potassium 3.9 mmol/L (3.3-5.1); Sodium Level 138 mmol/L (133-145)
[2025-03-14 06:40] LABS: Bedside Glucose 103 mg/dL (74-106)
[2025-03-14] MEDS: Bumetanide 0.5 MG Tablet 1 MG PO (08:19)
[2025-03-14] MEDS: Senna/Docusate Sodium 1 Tablet 2 TABLET PO (08:19)
[2025-03-14] MEDS: Empagliflozin 25 MG Tablet PO (08:19)
[2025-03-14] MEDS: Losartan Potassium 25 MG Tablet PO (08:20)
[2025-03-14] MEDS: Sertraline 50 MG Tablet PO (08:20)
[2025-03-14] MEDS: Pantoprazole Sodium 40 MG Tablet PO (08:20)
[2025-03-14] MEDS: Metoprolol(XL)Succ 25 MG Tablet PO ×2 (08:20→21:29)
[2025-03-14] MEDS: Clopidogrel Bisulfate 75 MG Tablet PO (08:20)
[2025-03-14] MEDS: Aspirin 81 MG TAB.CHEW PO (08:20)
[2025-03-14] MEDS: Lactobacillis Acidophilus 1 CAP PO ×2 (08:20→21:16)
[2025-03-14] MEDS: Potassium Chloride Oral Tablet 10 MEQ PO (08:20)
[2025-03-14] MEDS: Menthol/Lanolin/Calamine/Znox 113 GM Tube 1 APPLIC TOPICAL ×2 (08:20→21:16)
--- NOTE | 2025-03-14 10:21 | PN_ITS ---
Subjective Subjective Afebrile VSS -blood pressure over the past 24 hours has ranged from 128/62 to 164/57 his was prior to Cozaar being added to the drug regimen. BP currently is 130/67. Heart rate is within normal limits. Maintaining appropriate oxygen saturation on RA Oral intake - FOOD good FLUIDS good........ staying within her fluid restriction of 1500 cc daily. Weight today is 200 pounds and 3 ounces. This is down from 206 pounds and 13 ounces on 03/06/2025. Fasting blood sugar today is 103 and glargine was decreased to 8 units nightly yesterday. Discussed with nursing - no problems that need addressed Reviewed the THERAPY notes Medication list reviewed. All lab from this morning was personally reviewed. The white blood cell count is normal at 4.9. Hemoglobin is stable at 9.3 and platelets are normal at 278,000. Sodium is stable at 138 and the potassium is 3.9. BUN is down to 18 with a creatinine of 0.9 which is stable. Magnesium is 2.0 today. Denies cephalgia, lightheadedness, chest pain, palpitations, shortness of breath at rest or with exertion, nausea/vomiting/abdominal pain/abdominal cramping, dysuria and calf pain. She is sleeping well and has a good appetite. She feels she is less depressed but, she still feels like there is room for improvement. We discussed increasing the Sertraline and she is agreeable to this. Objective Data Objective Data Vital Signs: Vital Signs Temp Pulse Resp BP Pulse Ox O2 Del Method 98.1 F 67 16 130/67 H 94 Room Air 03/14/25 05:05 03/14/25 08:20 03/14/25 05:05 03/14/25 05:05 03/14/25 05:05 03/14/25 05:05 Oxygen Delivery Method Room Air Weight: 200 lb 2.876 oz Body Mass Index (BMI) 30.3 Intake & Output: Intake and Output for Last 24 Hours 03/12/25 03/13/25 03/14/25 23:59 23:59 23:59 Intake Total 1200 / 1200 1420 / 1420 240 / 240 Output Total 350 / 350 550 / 550 100 / 100 Balance 850 / 850 870 / 870 140 / 140 Lab / Micro Data 03/14/25 05:32 03/14/25 05:32 Labs: Laboratory Results - last 24 hr 03/13/25 20:56: POC Glucose 158 H 03/14/25 05:32: WBC 4.9, RBC 3.00 L, Hgb 9.3 L, Hct 27.8 L, MCV 92.7, MCH 31.0, MCHC 33.5, RDW Std Deviation 49.8 H, RDW Coeff of Briseida 14.7 H, Plt Count 278, MPV 11.2, Sodium 138, Potassium 3.9, Chloride 97 L, Carbon Dioxide 31.2, Anion Gap 9, BUN 18, Creatinine 0.90, Estim Creat Clear Calc 79.33, Est GFR (MDRD) Non-Af 73, BUN/Creatinine Ratio 19.7, Glucose 101 H, Calcium 9.1, Magnesium 2.0 03/14/25 05:47: POC Glucose 103 Micro: Microbiology 03/01/25 17:47 Stool C. difficile GDH Antigen & Toxins - Final 03/01/25 17:47 Stool Clostridioides difficile (PCR) - Final Physical Exam Const alert, oriented x3 and no apparent distress General Appearance: cooperative Resp Resp Narrative: Diminished in the bases but clear to auscultation. Not tachypneic, no conversational dyspnea. Cardio regular rate, regular rhythm, no murmurs, no rub and no gallops Cardio Narrative: No ectopy GI normal to inspection, nondistended, normoactive bowel sounds, soft to palpation and non-tender Extremity no calf tenderness Extremity Narrative: Weight is stable. General Extremity: Negative for edema Skin Rashes: no rashes Psych Psych Narrative: Affect is not as flat. More engaged in what is being said to her. Sleeping well at night and has good appetite and intake. Very alert. Assessment & Plan Assessment/Plan (1) Debility: (2) Ischemic cerebrovascular accident (CVA): (3) Quadrantanopia of right eye: (4) Right sided weakness: (5) Dysarthria: (6) Ataxia: (7) Urinary incontinence: QUALIFIERS: Urinary Incontinence type: unspecified incontinence Q ualified Code(s): R32 - Unspecified urinary incontinence (8) Depression: QUALIFIERS: Depression Type: unspecified Qualified Code(s): F32.A - Depression, unspecified (9) Fecal incontinence: (10) Nonischemic cardiomyopathy: PLAN: Plan 1. Continue therapy 2. Increase sertraline to 100 mg p.o. daily 3. Continue Bumex 1 mg daily and 1500 cc daily fluid restriction. 4. Blood pressure is improving with the addition of Cozaar to her drug regimen. No lightheadedness. Will continue Cozaar. Will defer to cardiology whether or not to restart Entresto rather than Cozaar. Charges/Coding Visit Charges Inpatient E&M: 21778 [facility] Hosp L1
[2025-03-14] MEDS: Insulin Glargine-YFGN 100 UNIT/ML Pen 8 UNIT SC (21:14)
[2025-03-14] MEDS: Atorvastatin Calcium 40 MG Tablet PO (21:17)
[2025-03-14 23:22] LABS: Bedside Glucose 143 mg/dL (74-106)
[2025-03-15] MEDS: Enoxaparin 40 MG/0.4 ML Syringe SC (05:13)
[2025-03-15] MEDS: Vancomycin 125 MG/5 ML Susp PO.SYRINGE PO ×4 (05:14→23:17)
[2025-03-15 06:00] VITALS: BP 158/69; PULSE 74; RESP 15; TEMP 36.9; O2SAT 94
[2025-03-15 06:35] LABS: Bedside Glucose 116 mg/dL (74-106)
[2025-03-15] MEDS: Pantoprazole Sodium 40 MG Tablet PO (07:54)
[2025-03-15] MEDS: Empagliflozin 25 MG Tablet PO (07:54)
[2025-03-15] MEDS: Losartan Potassium 25 MG Tablet PO (07:54)
[2025-03-15] MEDS: Aspirin 81 MG TAB.CHEW PO (07:54)
[2025-03-15] MEDS: Potassium Chloride Oral Tablet 10 MEQ PO (07:54)
[2025-03-15] MEDS: Sertraline 50 MG Tablet PO (07:54)
[2025-03-15] MEDS: Lactobacillis Acidophilus 1 CAP PO ×2 (07:54→21:02)
[2025-03-15 07:55] VITALS: BP 174/69; PULSE 64
[2025-03-15] MEDS: Metoprolol(XL)Succ 25 MG Tablet PO ×2 (07:55→21:08)
[2025-03-15] MEDS: Bumetanide 0.5 MG Tablet 1 MG PO (07:56)
[2025-03-15 08:00] VITALS: BMI 31.8
[2025-03-15 10:13] VITALS: BMI 31.8
[2025-03-15] MEDS: metFORMIN (XR) 500 MG Tablet PO (17:16)
[2025-03-15 18:00] VITALS: BP 154/64; PULSE 78; RESP 16; TEMP 36; O2SAT 96
[2025-03-15 19:48] VITALS: BMI 31.8
[2025-03-15] MEDS: Menthol/Lanolin/Calamine/Znox 113 GM Tube 1 APPLIC TOPICAL (21:02)
[2025-03-15] MEDS: Atorvastatin Calcium 40 MG Tablet PO (21:02)
[2025-03-15 21:08] VITALS: PULSE 72
[2025-03-15 21:09] VITALS: BP 170/66; PULSE 72
[2025-03-15 22:00] VITALS: PULSE 72; RESP 16
[2025-03-15 22:25] LABS: Bedside Glucose 170 mg/dL (74-106)
[2025-03-16] MEDS: Vancomycin 125 MG/5 ML Susp PO.SYRINGE PO (05:20)
[2025-03-16] MEDS: Enoxaparin 40 MG/0.4 ML Syringe SC (05:20)
[2025-03-16 06:00] VITALS: BP 156/73; PULSE 67; RESP 15; TEMP 36.5; O2SAT 95
[2025-03-16 06:22] LABS: Bedside Glucose 108 mg/dL (74-106)
[2025-03-16 08:00] VITALS: BMI 31.4
[2025-03-16 08:15] VITALS: BP 129/49; PULSE 67
[2025-03-16] MEDS: Pantoprazole Sodium 40 MG Tablet PO (08:15)
[2025-03-16] MEDS: Metoprolol(XL)Succ 25 MG Tablet PO ×2 (08:15→20:18)
[2025-03-16] MEDS: Losartan Potassium 25 MG Tablet PO (08:16)
[2025-03-16] MEDS: Lactobacillis Acidophilus 1 CAP PO ×2 (08:16→20:18)
[2025-03-16] MEDS: Empagliflozin 25 MG Tablet PO (08:16)
[2025-03-16] MEDS: Bumetanide 0.5 MG Tablet 1 MG PO (08:16)
[2025-03-16] MEDS: Menthol/Lanolin/Calamine/Znox 113 GM Tube 1 APPLIC TOPICAL ×2 (08:16→20:18)
[2025-03-16] MEDS: Sertraline 100 MG Tablet PO (08:16)
[2025-03-16] MEDS: Potassium Chloride Oral Tablet 10 MEQ PO (08:16)
[2025-03-16] MEDS: Aspirin 81 MG TAB.CHEW PO (08:16)
[2025-03-16 09:44] VITALS: BMI 31.4
[2025-03-16] MEDS: metFORMIN (XR) 500 MG Tablet PO (17:01)
[2025-03-16 18:00] VITALS: BP 150/71; PULSE 61; RESP 16; TEMP 36.6; O2SAT 92
[2025-03-16 20:18] VITALS: PULSE 61
[2025-03-16] MEDS: Atorvastatin Calcium 40 MG Tablet PO (20:18)
[2025-03-16 20:51] LABS: Bedside Glucose 145 mg/dL (74-106)
[2025-03-16 23:53] VITALS: BMI 31.4
[2025-03-17 02:59] VITALS: BP 166/62; PULSE 61; RESP 18; TEMP 36.6; O2SAT 94
[2025-03-17] MEDS: Enoxaparin 40 MG/0.4 ML Syringe SC (05:25)
[2025-03-17 06:06] LABS: Bedside Glucose 128 mg/dL (74-106)
[2025-03-17] MEDS: Bumetanide 0.5 MG Tablet 1 MG PO (07:39)
[2025-03-17 07:40] VITALS: BP 160/64; PULSE 75
[2025-03-17] MEDS: Lactobacillis Acidophilus 1 CAP PO ×2 (07:40→22:10)
[2025-03-17] MEDS: Losartan Potassium 25 MG Tablet PO (07:40)
[2025-03-17] MEDS: Aspirin 81 MG TAB.CHEW PO (07:40)
[2025-03-17] MEDS: Metoprolol(XL)Succ 25 MG Tablet PO ×2 (07:40→22:09)
[2025-03-17] MEDS: Sertraline 100 MG Tablet PO (07:41)
[2025-03-17] MEDS: Empagliflozin 25 MG Tablet PO (07:41)
[2025-03-17] MEDS: Potassium Chloride Oral Tablet 10 MEQ PO (07:42)
[2025-03-17] MEDS: Pantoprazole Sodium 40 MG Tablet PO (07:42)
[2025-03-17 10:00] VITALS: BMI 30.9
[2025-03-17 11:58] VITALS: BMI 31.4
[2025-03-17 13:34] VITALS: BP 127/58; PULSE 66
[2025-03-17] MEDS: metFORMIN (XR) 500 MG Tablet PO (16:50)
[2025-03-17 17:41] VITALS: BP 144/73; PULSE 68; RESP 17; TEMP 35.9; O2SAT 97
[2025-03-17 22:09] VITALS: BP 150/54; PULSE 58
[2025-03-17] MEDS: Atorvastatin Calcium 40 MG Tablet PO (22:10)
[2025-03-17] MEDS: Menthol/Lanolin/Calamine/Znox 113 GM Tube 1 APPLIC TOPICAL (22:11)
[2025-03-17 22:39] LABS: Bedside Glucose 159 mg/dL (74-106)
[2025-03-18] VITALS (7 sets, daily range): BP systolic 142–166; BP diastolic 59–95; PULSE 61–64; RESP 15–18; TEMP 36.4; O2SAT 95–100; BMI 30.8
[2025-03-18] MEDS: Enoxaparin 40 MG/0.4 ML Syringe SC (06:47)
[2025-03-18 07:07] LABS: Bedside Glucose 132 mg/dL (74-106)
[2025-03-18] MEDS: Aspirin 81 MG TAB.CHEW PO (08:10)
[2025-03-18] MEDS: Lactobacillis Acidophilus 1 CAP PO ×2 (08:10→21:49)
[2025-03-18] MEDS: Sertraline 100 MG Tablet PO (08:10)
[2025-03-18] MEDS: Bumetanide 0.5 MG Tablet 1 MG PO (08:10)
[2025-03-18] MEDS: Potassium Chloride Oral Tablet 10 MEQ PO (08:10)
[2025-03-18] MEDS: Losartan Potassium 25 MG Tablet PO (08:10)
[2025-03-18] MEDS: Pantoprazole Sodium 40 MG Tablet PO (08:10)
[2025-03-18] MEDS: Empagliflozin 25 MG Tablet PO (08:10)
[2025-03-18] MEDS: Metoprolol(XL)Succ 25 MG Tablet PO ×2 (08:11→21:49)
[2025-03-18] MEDS: Menthol/Lanolin/Calamine/Znox 113 GM Tube 1 APPLIC TOPICAL ×2 (08:13→22:00)
--- NOTE | 2025-03-18 10:46 | PCM.PROGNOTE ---
Subjective Subjective Kelsie was seen on team rounds today. Her Sister Sana participated by phone. Afebrile VSS -blood pressure over the weekend has ranged from 144/73 to 162/69. Heart rate has ranged from 58-75. Maintaining appropriate oxygen saturation on RA Oral intake - FOOD good FLUIDS good, staying within her fluid restriction of 1500 cc daily. Blood sugars are very well-controlled with no hypoglycemia. Discussed with nursing - no problems that need addressed. Remains incontinent of urine. Reviewed the THERAPY notes - Only able to do 1 sit to general internist 30 sec but, she only needed CGA today to stand and this is an improvement. Medication list reviewed. Denies lightheadedness. Denies headache, chest pain, shortness of breath, cough, palpitations, nausea/vomiting/abdominal pain/abdominal cramping, diarrhea/constipation, dysuria and calf pain. Objective Data Objective Data Vital Signs: Vital Signs Temp Pulse Resp BP Pulse Ox O2 Del Method 97.6 F L 61 18 162/69 H 95 Room Air 03/18/25 03:01 03/18/25 08:11 03/18/25 03:01 03/18/25 03:01 03/18/25 03:01 03/18/25 03:01 Oxygen Delivery Method Room Air Weight: 203 lb 4 oz Body Mass Index (BMI) 30.8 Intake & Output: Intake and Output for Last 24 Hours 03/16/25 03/17/25 03/18/25 23:59 23:59 23:59 Intake Total 1200 / 1200 1220 / 1320 340 / 340 Output Total 600 / 600 400 / 400 Balance 600 / 600 820 / 920 340 / 340 Lab / Micro Data 03/14/25 05:32 03/14/25 05:32 Labs: Laboratory Results - last 24 hr 03/17/25 22:07: POC Glucose 159 H 03/18/25 06:46: POC Glucose 132 H Micro: Microbiology 03/01/25 17:47 Stool C. difficile GDH Antigen & Toxins - Final 03/01/25 17:47 Stool Clostridioides difficile (PCR) - Final Physical Exam Const alert, oriented x3 and no apparent distress Constitutional Narrative: Pleasant, outgoing, interacting with staff and talkative. Affect is much better than at admission to rehab. General Appearance: cooperative Neck supple Resp Resp Narrative: Diminished in the bases but clear to auscultation. Not tachypneic, no conversational dyspnea. No cough with deep breathing. No labored breathing when she lies flat in bed. No paroxysmal nocturnal dyspnea. Cardio regular rate, regular rhythm, no murmurs, no rub and no gallops Cardio Narrative: No ectopy GI normal to inspection, nondistended, normoactive bowel sounds, soft to palpation and non-tender GI Narrative: No guarding with palpation Extremity no calf tenderness Extremity Narrative: Weight is stable. General Extremity: Negative for edema Skin Rashes: no rashes Psych Psych Narrative: Affect is not as flat. More engaged in what is being said to her. Sleeping well at night and has good appetite and intake. Very alert. Assessment & Plan Assessment/Plan (1) Debility: (2) Ischemic cerebrovascular accident (CVA): (3) Quadrantanopia of right eye: (4) Right sided weakness: (5) Dysarthria: (6) Ataxia: (7) Urinary incontinence: QUALIFIERS: Urinary Incontinence type: unspecified incontinence Qualified Code(s): R32 - Unspecified urinary incontinence (8) Depression: QUALIFIERS: Depression Type: unspecified Qualified Code(s): F32.A - Depression, unspecified (9) Fecal incontinence: (10) Nonischemic cardiomyopathy: PLAN: Plan 1. Continue therapy 2. Discontinue losartan 3. Restart Entresto at half of what she was taking before. 4. BMP in the a.m. 5. IF she gets cut by insurance on Tuesday I do not feel like she would be safe at home. there will be no one there 30/05 to assist and she is still only able to do 1 sit to general internist 30 sec at [facility]. I feel like she will need SNF if she gets cut this week. If we get another week with her she may improve to the point where she could be discharged home alone. Charges/Coding Visit Charges Inpatient E&M: 84208 Subs Hosp L2
[2025-03-18] MEDS: SACUBITRIL/VALSARTAN 24/26 MG TABLET 1 EACH PO ×2 (11:38→21:49)
--- NOTE | 2025-03-18 13:25 | CASEMGMT ---
Addendum entered by Latasha Gay 03/19/25 15:35: [facility] accepted. Will await outcome of insurance update. Original Note: Social Work IDT met with patient at bedside, then sister via conference call for Team meeting. Discussed patient's progress in PT/OT/ST/SN. Educated to [facility] insurance with NRD 03/20. Insurance indicated pt's LCD is 03/19 if not approved continued stay. Pt's goal is to return home with support of family members. However, if pt is DC'd this week, pt/family does not feel pt is ready to be home and home alone during the day while son's are working. Pt requested referral to [facility]. SW agreed to place referral. Educated to precert process and that may delay day of DC regardless of LCD on RU. Pt/sister expressed understanding. recommended medical alert and [facility] at DC home. [facility] provided pt with resources. Referral placed via [facility]Port to [facility] for skilled care. Latasha Gay MONUMENT MASON INFORMATION COORDINATOR
[2025-03-18] MEDS: metFORMIN (XR) 500 MG Tablet PO (16:41)
[2025-03-18] MEDS: Atorvastatin Calcium 40 MG Tablet PO (21:49)
[2025-03-18 22:21] LABS: Bedside Glucose 137 mg/dL (74-106)
[2025-03-19 06:00] VITALS: BP 149/70; PULSE 71; RESP 15; TEMP 36.6; O2SAT 93; BMI 30.7
[2025-03-19] MEDS: Enoxaparin 40 MG/0.4 ML Syringe SC (06:06)
[2025-03-19 06:28] LABS: Anion Gap 11 (5-15); BUN 25 mg/dL (4-19); BUN/Creat Ratio 27.3 RATIO (10-20); Calcium,Total 9.7 mg/dL (7.6-11.0); Carbon Dioxide 31.7 mmol/L (21.0-32.0); Chloride 95 mmol/L (98-108); EST Glomerular Filtration Rate 74 (>60); Estimated Creatinine Clearance 79.92 ml/min (50-250); Glucose 134 mg/dL (70-99); Potassium 4.1 mmol/L (3.3-5.1); Sodium Level 138 mmol/L (133-145)
[2025-03-19 07:23] LABS: Bedside Glucose 163 mg/dL (74-106)
[2025-03-19] MEDS: SACUBITRIL/VALSARTAN 24/26 MG TABLET 1 EACH PO ×2 (08:53→20:54)
[2025-03-19] MEDS: Pantoprazole Sodium 40 MG Tablet PO (08:53)
[2025-03-19] MEDS: Empagliflozin 25 MG Tablet PO (08:53)
[2025-03-19] MEDS: Lactobacillis Acidophilus 1 CAP PO ×2 (08:53→20:53)
[2025-03-19] MEDS: Potassium Chloride Oral Tablet 10 MEQ PO (08:53)
[2025-03-19] MEDS: Sertraline 100 MG Tablet PO (08:53)
[2025-03-19] MEDS: Bumetanide 0.5 MG Tablet 1 MG PO (08:53)
[2025-03-19] MEDS: Aspirin 81 MG TAB.CHEW PO (08:53)
[2025-03-19 08:54] VITALS: BP 128/60; PULSE 81
[2025-03-19] MEDS: Metoprolol(XL)Succ 25 MG Tablet PO ×2 (08:54→20:53)
[2025-03-19] MEDS: Menthol/Lanolin/Calamine/Znox 113 GM Tube 1 APPLIC TOPICAL ×2 (08:55→20:55)
[2025-03-19 12:21] LABS: Bedside Glucose 237 mg/dL (74-106)
[2025-03-19 13:45] VITALS: BP 102/50; BP 123/60; BP 139/63; PULSE 59; PULSE 64; PULSE 72
--- NOTE | 2025-03-19 13:46 | PN_ITS ---
Subjective Subjective Afebrile Entresto was restarted at half the dose she was taking at admission to rehab. Denies lightheadedness today. Good appetite. Sleeping well at night. Maintaining appropriate oxygen saturation on room air. Remains incontinent of urine and sometimes stool. Denies cephalgia, lightheadedness, vertigo, chest pain, cough, shortness of breath, palpitations, nausea/vomiting/abdominal pain, dysuria and calf pain. All lab drawn this morning was personally reviewed. Sodium is stable at 138 and the potassium is good at 4.1. BUN is 25, up from 18 on 03/14/2025. Creatinine is stable at 0.9. Magnesium is 2. Objective Data Objective Data Vital Signs: Vital Signs Temp Pulse Resp BP Pulse Ox O2 Del Method 97.8 F 81 15 128/60 H 93 Room Air 03/19/25 06:00 03/19/25 08:54 03/19/25 06:00 03/19/25 08:54 03/19/25 06:00 03/19/25 06:00 Oxygen Delivery Method Room Air Weight: 202 lb 8 oz Body Mass Index (BMI) 30.7 Intake & Output: Intake and Output for Last 24 Hours 03/17/25 03/18/25 03/19/25 23:59 23:59 23:59 Intake Total 1220 / 1320 880 / 1030 510 / 510 Output Total 400 / 400 400 / 400 Balance 820 / 920 480 / 630 510 / 510 Lab / Micro Data 03/14/25 05:32 03/19/25 05:28 Labs: Laboratory Results - last 24 hr 03/18/25 21:52: POC Glucose 137 H 03/19/25 05:28: Sodium 138, Potassium 4.1, Chloride 95 L, Carbon Dioxide 31.7, Anion Gap 11, BUN 25 H, Creatinine 0.90, Estim Creat Clear Calc 79.92, Est GFR (MDRD) Non-Af 74, BUN/Creatinine Ratio 27.3 H, Glucose 134 H, Calcium 9.7, Magnesium 2.0 03/19/25 07:01: POC Glucose 163 H 03/19/25 11:55: POC Glucose 237 H Micro: Microbiology 03/01/25 17:47 Stool C. difficile GDH Antigen & Toxins - Final 03/01/25 17:47 Stool Clostridioides difficile (PCR) - Final Physical Exam Const alert and no apparent distress General Appearance: cooperative Resp Resp Narrative: Diminished in the bases but clear to auscultation. Not tachypneic, no conversational dyspnea. No cough with deep breathing. No labored breathing when she lies flat in bed. No paroxysmal nocturnal dyspnea. Cardio regular rate, regular rhythm, no murmurs, no rub and no gallops Cardio Narrative: No ectopy GI normal to inspection, nondistended, normoactive bowel sounds, soft to palpation and non-tender GI Narrative: No guarding with palpation Extremity no calf tenderness General Extremity: Negative for edema Skin Rashes: no rashes Psych Psych Narrative: Good participation with therapy. Motivated to get better and go home. Making good eye contact with me when we are talking and she is engaged in the conversation. Better facial expression. Interacting well with staff and always pleasant. Good appetite and sleeping well at night. Assessment & Plan Assessment/Plan (1) Debility: (2) Ischemic cerebrovascular accident (CVA): (3) Quadrantanopia of right eye: (4) Right sided weakness: (5) Dysarthria: (6) Ataxia: (7) Urinary incontinence: QUALIFIERS: Urinary Incontinence type: unspecified incontinence Q ualified Code(s): R32 - Unspecified urinary incontinence (8) Depression: QUALIFIERS: Depression Type: unspecified Qualified Code(s): F32.A - Depression, unspecified (9) Fecal incontinence: (10) Nonischemic cardiomyopathy: PLAN: Plan 1. Continue therapy 2. Continue to hold the Lantus at HS. 3. Discussed the importance of regular follow up with physicians to maintain good health going forward. Discussed goals for treatment to prevent additional strokes going forward. HGA1C 7 or less, BP < 130/80, LDL 70 or less. discussed the importance of diet control to keep BS's in good control and not relying only on medication. 4. Needs follow up PCP, cardiology, neurology, psychotherapy post DC from rehab. 5. Continue Cozaar. Does not tolerate Entresto, even the lowest dose. May be related to autonomic insufficiciency due to long standing poorly controlled DM. Mildy orthostatic at baseline.....worsens with Entresto. Charges/Coding Visit Charges Inpatient E&M: 51801 Subs Hosp L1
[2025-03-19 14:02] VITALS: BMI 30.7
[2025-03-19] MEDS: metFORMIN (XR) 500 MG Tablet PO (17:10)
[2025-03-19 17:33] VITALS: BP 146/59; PULSE 58; RESP 17; TEMP 36.6; O2SAT 97
[2025-03-19 20:49] VITALS: BP 146/70; PULSE 58; RESP 16; O2SAT 95
[2025-03-19 20:53] VITALS: BP 146/70; PULSE 58
[2025-03-19] MEDS: Atorvastatin Calcium 40 MG Tablet PO (20:53)
[2025-03-19 21:52] LABS: Bedside Glucose 161 mg/dL (74-106)
[2025-03-20 04:22] VITALS: BMI 30.7
[2025-03-20 06:00] VITALS: BP 149/67; PULSE 60; RESP 16; TEMP 36.4; O2SAT 94; BMI 30.5
[2025-03-20] MEDS: Enoxaparin 40 MG/0.4 ML Syringe SC (06:34)
[2025-03-20 07:26] LABS: Bedside Glucose 160 mg/dL (74-106)
[2025-03-20 08:00] VITALS: BP 83/54; BP 93/63; BP 97/55; PULSE 68; PULSE 69; PULSE 79
[2025-03-20] MEDS: Menthol/Lanolin/Calamine/Znox 113 GM Tube 1 APPLIC TOPICAL ×2 (08:37→22:00)
[2025-03-20 08:38] VITALS: BP 149/67; PULSE 60
[2025-03-20] MEDS: Metoprolol(XL)Succ 25 MG Tablet PO ×2 (08:38→21:56)
[2025-03-20] MEDS: SACUBITRIL/VALSARTAN 24/26 MG TABLET 1 EACH PO (08:38)
[2025-03-20] MEDS: Pantoprazole Sodium 40 MG Tablet PO (08:38)
[2025-03-20] MEDS: Lactobacillis Acidophilus 1 CAP PO ×2 (08:38→21:56)
[2025-03-20] MEDS: Bumetanide 0.5 MG Tablet 1 MG PO (08:38)
[2025-03-20] MEDS: Empagliflozin 25 MG Tablet PO (08:39)
[2025-03-20] MEDS: Potassium Chloride Oral Tablet 10 MEQ PO (08:39)
[2025-03-20] MEDS: Aspirin 81 MG TAB.CHEW PO (08:39)
[2025-03-20] MEDS: Sertraline 100 MG Tablet PO (08:39)
--- NOTE | 2025-03-20 13:55 | CASEMGMT ---
Social Work- SW met with pt to provide updates on referral status. SW updated that [facility] accepted referral and precert is pending. Pt reports no questions or concerns at this time. SW remains available to follow for discharge needs. SOFIA Hdz
[2025-03-20] MEDS: metFORMIN (XR) 500 MG Tablet PO (16:41)
[2025-03-20 17:00] VITALS: BMI 30.5
[2025-03-20 17:33] VITALS: BP 139/68; PULSE 56; RESP 17; TEMP 37; O2SAT 97
[2025-03-20 21:55] VITALS: BP 130/74; PULSE 60; RESP 16; O2SAT 93
[2025-03-20 21:56] VITALS: BP 130/74; PULSE 60
[2025-03-20] MEDS: Atorvastatin Calcium 40 MG Tablet PO (21:56)
[2025-03-20 22:22] LABS: Bedside Glucose 162 mg/dL (74-106)
[2025-03-21 04:23] VITALS: BMI 30.5
[2025-03-21] MEDS: Enoxaparin 40 MG/0.4 ML Syringe SC (05:28)
[2025-03-21 06:00] VITALS: BP 126/53; PULSE 63; RESP 15; TEMP 36.4; O2SAT 96
[2025-03-21 07:14] LABS: Bedside Glucose 157 mg/dL (74-106)
[2025-03-21] MEDS: Losartan Potassium 50 MG Tablet PO (08:09)
[2025-03-21 08:10] VITALS: PULSE 63
[2025-03-21] MEDS: Lactobacillis Acidophilus 1 CAP PO ×2 (08:10→21:38)
[2025-03-21] MEDS: Bumetanide 0.5 MG Tablet 1 MG PO (08:10)
[2025-03-21] MEDS: Pantoprazole Sodium 40 MG Tablet PO (08:10)
[2025-03-21] MEDS: Metoprolol(XL)Succ 25 MG Tablet PO ×2 (08:10→21:38)
[2025-03-21] MEDS: Potassium Chloride Oral Tablet 10 MEQ PO (08:10)
[2025-03-21] MEDS: Sertraline 100 MG Tablet PO (08:10)
[2025-03-21] MEDS: Empagliflozin 25 MG Tablet PO (08:10)
[2025-03-21] MEDS: Aspirin 81 MG TAB.CHEW PO (08:10)
[2025-03-21] MEDS: Menthol/Lanolin/Calamine/Znox 113 GM Tube 1 APPLIC TOPICAL ×2 (08:14→21:37)
[2025-03-21 09:59] VITALS: BMI 30.3
--- NOTE | 2025-03-21 11:23 | PCM.PROGNOTE ---
Subjective Subjective Afebrile VSS - orthostatics were very + yesterday and we had to DC Entresto. Cozaar was restarted at 50 mg daily. Denies lightheadedness today. BP this morning is 126/53. Maintaining appropriate oxygen saturation on RA Oral intake - FOOD good FLUIDS staying within her fluid restriction Blood sugars remain well-controlled with no hypoglycemia. Discussed with nursing - no problems that need addressed Reviewed the THERAPY notes Medication list reviewed. Had lightheadedness this AM. Orthostatics are still +.......will take a few days for Entresto to wash out. She deniers SOB, CLEMONS, CP, cough, N/V/abd pain, dysuria and calf pain. Feeling better with regard to depression and thinks she will do better with self care post DC........was not complaint with meds, diet, physician follow up prior to admission. No adverse SE's with the increase in the Sertraline to 100 mg daily. No diarrhea with the addition of Glucophage to the drug regimen. Objective Data Objective Data Vital Signs: Vital Signs Temp Pulse Resp BP Pulse Ox O2 Del Method 97.6 F L 63 15 126/53 H 96 Room Air 03/21/25 06:00 03/21/25 08:10 03/21/25 06:00 03/21/25 06:00 03/21/25 06:00 03/21/25 06:00 Oxygen Delivery Method Room Air Weight: 200 lb 4 oz Body Mass Index (BMI) 30.3 Intake & Output: Intake and Output for Last 24 Hours 03/19/25 03/20/25 03/21/25 23:59 23:59 23:59 Intake Total 1120 / 1120 1300 / 1300 180 / 180 Output Total 1100 / 1100 450 / 450 Balance 20 / 20 850 / 850 180 / 180 Lab / Micro Data 03/14/25 05:32 03/19/25 05:28 Labs: Laboratory Results - last 24 hr 03/20/25 22:00: POC Glucose 162 H 03/21/25 06:26: POC Glucose 157 H Micro: Microbiology 03/01/25 17:47 Stool C. difficile GDH Antigen & Toxins - Final 03/01/25 17:47 Stool Clostridioides difficile (PCR) - Final Physical Exam Const alert, oriented x3 and no apparent distress General Appearance: cooperative Resp Resp Narrative: Diminished in the bases but clear to auscultation. Not tachypneic, no conversational dyspnea. No cough with deep breathing. No labored breathing when she lies flat in bed. No paroxysmal nocturnal dyspnea. Cardio regular rate, regular rhythm, no murmurs, no rub and no gallops Cardio Narrative: No ectopy GI normal to inspection, nondistended, normoactive bowel sounds, soft to palpation and non-tender GI Narrative: No guarding with palpation Extremity no calf tenderness General Extremity: Negative for edema Skin Rashes: no rashes Assessment & Plan Assessment/Plan (1) Debility: (2) Ischemic cerebrovascular accident (CVA): (3) Quadrantanopia of right eye: (4) Right sided weakness: (5) Dysarthria: (6) Ataxia: (7) Urinary incontinence: QUALIFIERS: Urinary Incontinence type: unspecified incontinence Qualified Code(s): R32 - Unspecified urinary incontinence (8) Depression: QUALIFIERS: Depression Type: unspecified Qualified Code(s): F32.A - Depression, unspecified (9) Fecal incontinence: (10) Nonischemic cardiomyopathy: PLAN: Plan 1. Continue 2. Decrease Cozaar to 25 mg daily 3. Repeat orthostatics in the a.m. 4. Increase metformin to twice daily 5. Continue sertraline 100 mg daily and recommend psychotherapy at discharge-patient is agreeable with this plan. 6. she is making good progress.......I suspect that with an little additional therapy she will be able to go home at ID. Needs to be able to do sit to stands with no assist because she will be home alone when her sons are at work. Charges/Coding Visit Charges Inpatient E&M: 10128 [facility] Hosp L1
[2025-03-21 12:24] VITALS: BP 102/51; BP 115/50; BP 84/43; PULSE 64; PULSE 66; PULSE 76
[2025-03-21 12:30] VITALS: BMI 30.3
--- NOTE | 2025-03-21 14:50 | CASEMGMT ---
Social Work Insurance approved with [employer]D 03/26 and requesting DC date and plans with review. - SW spoke with pt to update. Pt agreed. SW updated [place]. Latasha Gay PRODUCTION LINE SOLDERER AIRPLANE CAPTAIN
[2025-03-21] MEDS: metFORMIN (XR) 500 MG Tablet PO (16:57)
[2025-03-21 17:48] VITALS: BP 147/63; PULSE 61; RESP 17; TEMP 36.9; O2SAT 61
[2025-03-21 21:38] VITALS: BP 142/65; PULSE 75
[2025-03-21] MEDS: Atorvastatin Calcium 40 MG Tablet PO (21:38)
[2025-03-21 22:10] LABS: Bedside Glucose 163 mg/dL (74-106)
[2025-03-22] MEDS: Enoxaparin 40 MG/0.4 ML Syringe SC (05:42)
[2025-03-22 05:44] VITALS: BP 119/57; PULSE 65; RESP 16; TEMP 36.1; O2SAT 94
[2025-03-22 05:50] VITALS: BP 113/52; BP 119/57; BP 122/65; PULSE 65; PULSE 70; PULSE 86
[2025-03-22 06:00] VITALS: BMI 30.3
[2025-03-22 06:49] LABS: Bedside Glucose 162 mg/dL (74-106)
[2025-03-22] MEDS: Empagliflozin 25 MG Tablet PO (07:42)
[2025-03-22 07:43] VITALS: PULSE 65
[2025-03-22] MEDS: Aspirin 81 MG TAB.CHEW PO (07:43)
[2025-03-22] MEDS: Sertraline 100 MG Tablet PO (07:43)
[2025-03-22] MEDS: Lactobacillis Acidophilus 1 CAP PO ×2 (07:43→20:50)
[2025-03-22] MEDS: Bumetanide 0.5 MG Tablet 1 MG PO (07:43)
[2025-03-22] MEDS: Pantoprazole Sodium 40 MG Tablet PO (07:43)
[2025-03-22] MEDS: Losartan Potassium 25 MG Tablet PO (07:43)
[2025-03-22] MEDS: Metoprolol(XL)Succ 25 MG Tablet PO ×2 (07:43→20:50)
[2025-03-22] MEDS: Potassium Chloride Oral Tablet 10 MEQ PO (07:43)
[2025-03-22] MEDS: Senna/Docusate Sodium 1 Tablet 2 TABLET PO (07:43)
[2025-03-22] MEDS: Menthol/Lanolin/Calamine/Znox 113 GM Tube 1 APPLIC TOPICAL ×2 (07:44→20:50)
[2025-03-22 13:17] VITALS: BMI 30.3
[2025-03-22] MEDS: metFORMIN (XR) 500 MG Tablet PO (16:33)
[2025-03-22 17:10] VITALS: BP 149/65; PULSE 58; RESP 16; TEMP 36.8; O2SAT 97
[2025-03-22 20:50] VITALS: PULSE 58
[2025-03-22] MEDS: Atorvastatin Calcium 40 MG Tablet PO (20:50)
[2025-03-22 21:18] LABS: Bedside Glucose 177 mg/dL (74-106)
[2025-03-22 22:52] VITALS: BMI 30.3
[2025-03-23] MEDS: Enoxaparin 40 MG/0.4 ML Syringe SC (06:12)
[2025-03-23 06:13] VITALS: BP 155/74; PULSE 77; RESP 18; TEMP 36.5; O2SAT 96
[2025-03-23 06:39] LABS: Bedside Glucose 142 mg/dL (74-106)
[2025-03-23] MEDS: Lactobacillis Acidophilus 1 CAP PO ×2 (08:26→21:39)
[2025-03-23] MEDS: Pantoprazole Sodium 40 MG Tablet PO (08:26)
[2025-03-23] MEDS: Bumetanide 0.5 MG Tablet 1 MG PO (08:26)
[2025-03-23] MEDS: Potassium Chloride Oral Tablet 10 MEQ PO (08:26)
[2025-03-23] MEDS: Aspirin 81 MG TAB.CHEW PO (08:26)
[2025-03-23] MEDS: Sertraline 100 MG Tablet PO (08:26)
[2025-03-23] MEDS: metFORMIN (XR) 500 MG Tablet PO ×2 (08:26→17:32)
[2025-03-23] MEDS: Losartan Potassium 25 MG Tablet PO (08:26)
[2025-03-23 08:27] VITALS: BP 124/49; PULSE 67
[2025-03-23] MEDS: Menthol/Lanolin/Calamine/Znox 113 GM Tube 1 APPLIC TOPICAL ×2 (08:27→21:40)
[2025-03-23] MEDS: Metoprolol(XL)Succ 25 MG Tablet PO ×2 (08:27→21:40)
[2025-03-23] MEDS: Empagliflozin 25 MG Tablet PO (08:28)
[2025-03-23 17:50] VITALS: BP 130/60; PULSE 79; RESP 16; TEMP 36.3; O2SAT 97
[2025-03-23] MEDS: Atorvastatin Calcium 40 MG Tablet PO (21:39)
[2025-03-23 21:40] VITALS: BP 144/58; PULSE 79
[2025-03-23 21:40] LABS: Bedside Glucose 156 mg/dL (74-106)
[2025-03-23 21:51] VITALS: O2SAT 96
[2025-03-24 05:23] VITALS: BP 160/67; PULSE 61; RESP 17; TEMP 37.1; O2SAT 97
[2025-03-24] MEDS: Enoxaparin 40 MG/0.4 ML Syringe SC (05:27)
[2025-03-24 06:00] VITALS: BMI 30.2
[2025-03-24 07:07] LABS: Bedside Glucose 126 mg/dL (74-106)
[2025-03-24] MEDS: Lactobacillis Acidophilus 1 CAP PO ×2 (08:42→22:17)
[2025-03-24] MEDS: metFORMIN (XR) 500 MG Tablet PO ×2 (08:42→18:09)
[2025-03-24] MEDS: Aspirin 81 MG TAB.CHEW PO (08:42)
[2025-03-24] MEDS: Sertraline 100 MG Tablet PO (08:42)
[2025-03-24 08:43] VITALS: PULSE 61
[2025-03-24] MEDS: Bumetanide 0.5 MG Tablet 1 MG PO (08:43)
[2025-03-24] MEDS: Metoprolol(XL)Succ 25 MG Tablet PO ×2 (08:43→22:18)
[2025-03-24] MEDS: Empagliflozin 25 MG Tablet PO (08:43)
[2025-03-24] MEDS: Potassium Chloride Oral Tablet 10 MEQ PO (08:43)
[2025-03-24] MEDS: Pantoprazole Sodium 40 MG Tablet PO (08:43)
[2025-03-24] MEDS: Losartan Potassium 25 MG Tablet PO (08:43)
[2025-03-24] MEDS: Menthol/Lanolin/Calamine/Znox 113 GM Tube 1 APPLIC TOPICAL ×2 (08:45→22:18)
[2025-03-24 10:00] VITALS: O2SAT 96
[2025-03-24 16:58] VITALS: BMI 30.2
[2025-03-24 17:01] VITALS: BP 145/68; PULSE 60; RESP 17; TEMP 36.5; O2SAT 97
[2025-03-24 21:51] LABS: Bedside Glucose 180 mg/dL (74-106)
[2025-03-24 22:00] VITALS: O2SAT 95
[2025-03-24] MEDS: Atorvastatin Calcium 40 MG Tablet PO (22:17)
[2025-03-24 22:18] VITALS: PULSE 66
[2025-03-25] VITALS (7 sets, daily range): BP systolic 123–160; BP diastolic 60–87; PULSE 62–91; RESP 14–16; TEMP 36.6; O2SAT 92–95; BMI 30.2
[2025-03-25] MEDS: Enoxaparin 40 MG/0.4 ML Syringe SC (05:32)
[2025-03-25 05:58] LABS: Hemoglobin 10.7 g/dL (12.0-15.0); Mean Corp Hgb Conc 33.4 g/dL (32-36); Mean Corpuscular Hgb 31.2 pg (27.0-32.0); Mean Corpuscular Volume 93.3 fL (81-99); Mean Platelet Vol. 12.6 fl (6.2-12.0); Platelet Count 231 K/mm3 (150-450); RBC Distribution Width CV 14.2 % (11.6-14.6); RBC Distribution Width SD 48.8 fl (35.1-43.9); Red Blood Count 3.43 M/mm3 (4.2-5.4); White Blood Count 5.7 K/mm3 (4.4-11.0)
[2025-03-25 06:20] LABS: Anion Gap 13 (5-15); BUN 31 mg/dL (4-19); BUN/Creat Ratio 26.9 RATIO (10-20); Calcium,Total 9.3 mg/dL (7.6-11.0); Carbon Dioxide 27.9 mmol/L (21.0-32.0); Chloride 96 mmol/L (98-108); Creatinine, Serum 1.16 mg/dL (0.70-1.20); EST Glomerular Filtration Rate 54 (>60); Estimated Creatinine Clearance 61.41 ml/min (50-250); Glucose 138 mg/dL (70-99); Potassium 3.8 mmol/L (3.3-5.1); Sodium Level 137 mmol/L (133-145)
[2025-03-25 07:05] LABS: Bedside Glucose 139 mg/dL (74-106)
[2025-03-25] MEDS: Senna/Docusate Sodium 1 Tablet 2 TABLET PO (08:19)
[2025-03-25] MEDS: metFORMIN (XR) 500 MG Tablet PO ×2 (08:20→16:30)
[2025-03-25] MEDS: Sertraline 100 MG Tablet PO (08:20)
[2025-03-25] MEDS: Losartan Potassium 25 MG Tablet PO (08:20)
[2025-03-25] MEDS: Lactobacillis Acidophilus 1 CAP PO ×2 (08:20→23:21)
[2025-03-25] MEDS: Metoprolol(XL)Succ 25 MG Tablet PO ×2 (08:20→23:21)
[2025-03-25] MEDS: Bumetanide 0.5 MG Tablet 1 MG PO (08:20)
[2025-03-25] MEDS: Potassium Chloride Oral Tablet 10 MEQ PO (08:20)
[2025-03-25] MEDS: Pantoprazole Sodium 40 MG Tablet PO (08:20)
[2025-03-25] MEDS: Empagliflozin 25 MG Tablet PO (08:20)
[2025-03-25] MEDS: Aspirin 81 MG TAB.CHEW PO (08:20)
[2025-03-25] MEDS: Menthol/Lanolin/Calamine/Znox 113 GM Tube 1 APPLIC TOPICAL ×2 (08:21→23:22)
--- NOTE | 2025-03-25 09:01 | PN_ITS ---
Subjective Subjective Kelsie was seen on team rounds today. Her Sister Sana participated by phone. All questions were answered to their satisfaction. Afebrile VSS -blood pressure over the weekend has ranged from 130/60 to 160/67. Heart rate is within normal limits. Orthostatics are negative today. Blood pressure lying down today is 160/76 with a heart rate of 81. Sitting up it dropped to 158/87 with a heart rate of 88. Standing the blood pressure was 148/78 with a heart rate of 91. Maintaining appropriate oxygen saturation on RA Oral intake - FOOD good FLUIDS good The blood sugar record was reviewed. Blood sugars are well-controlled. At bedtime blood sugar tends to be a little high but the FBS is good. Weight is down approximately 7 pounds since admission to the hospital. Discussed with nursing -remains incontinent of urine. Occasional fecal incontinence. Last bowel movement was this morning and it was formed. Reviewed the THERAPY notes Medication list reviewed. All lab drawn this morning was personally reviewed. White blood cell count and platelets are normal. The hemoglobin is 10.7, up from 9.3 on 03/14/2025. Sodium is 137 and the potassium is 3.8. BUN is 31 with a creatinine of 0.16. GFR is 54. Kelsie is c/o some nausea today and tells me that she had 2 loose stools already today. She denies abd pain. No fevers, sweats or chills. Denies lightheadedness. Objective Data Objective Data Vital Signs: Vital Signs Temp Pulse Resp BP Pulse Ox O2 Del Method 97.9 F 67 14 142/70 H 92 Room Air 03/25/25 06:00 03/25/25 08:20 03/25/25 06:00 03/25/25 06:00 03/25/25 06:00 03/25/25 06:00 Oxygen Delivery Method Room Air Weight: 199 lb 4.766 oz Body Mass Index (BMI) 30.2 Intake & Output: Intake and Output for Last 24 Hours 03/23/25 03/24/25 03/25/25 23:59 23:59 23:59 Intake Total 1470 / 1470 350 / 350 440 / 440 Output Total 1100 / 1100 400 / 400 300 / 300 Balance 370 / 370 -50 / -50 140 / 140 Lab / Micro Data 03/25/25 05:21 03/25/25 05:21 Labs: Laboratory Results - last 24 hr 03/24/25 21:33: POC Glucose 180 H 03/25/25 05:21: WBC 5.7, RBC 3.43 L, Hgb 10.7 L, Hct 32.0 L, MCV 93.3, MCH 31.2, MCHC 33.4, RDW Std Deviation 48.8 H, RDW Coeff of Briseida 14.2, Plt Count 231, MPV 12.6 H, Sodium 137, Potassium 3.8, Chloride 96 L, Carbon Dioxide 27.9, Anion Gap 13, BUN 31 H, Creatinine 1.16, Estim Creat Clear Calc 61.41, Est GFR (MDRD) Non- Af 54 L, BUN/Creatinine Ratio 26.9 H, Glucose 138 H, Calcium 9.3 03/25/25 06:47: POC Glucose 139 H Micro: Microbiology 03/01/25 17:47 Stool C. difficile GDH Antigen & Toxins - Final 03/01/25 17:47 Stool Clostridioides difficile (PCR) - Final Physical Exam Const alert, oriented x3 and no apparent distress General Appearance: cooperative HEENT Mouth: dry mucous membranes Resp normal respiratory effort and clear to auscultation bilaterally Resp Narrative: No conversational dyspnea Effort and Inspection: Negative for tachypneic or respiratory distress Cardio regular rate, regular rhythm and no gallops Cardio Narrative: Occasional premature beat GI GI Narrative: Soft, nondistended, no guarding with palpation, unremarkable bowel sounds. Extremity no calf tenderness General Extremity: Negative for edema Skin Rashes: no rashes Assessment & Plan Assessment/Plan (1) Debility: (2) Ischemic cerebrovascular accident (CVA): (3) Quadrantanopia of right eye: (4) Right sided weakness: (5) Dysarthria: (6) Ataxia: (7) Urinary incontinence: QUALIFIERS: Urinary Incontinence type: unspecified incontinence Q ualified Code(s): R32 - Unspecified urinary incontinence (8) Depression: QUALIFIERS: Depression Type: unspecified Qualified Code(s): F32.A - Depression, unspecified (9) Fecal incontinence: (10) Nonischemic cardiomyopathy: PLAN: Plan 1. Continue therapy 2. Blood pressure is a little high however the Cozaar was just restarted on 03/22/2025. Will continue monitor for couple days. 3. Zofran PRN nausea and she was instructed to stick to liquids and bland foods today. No diarrhea prior to today so will continue the Metformin BID. 4. Plan DC to SNF the end of the week. She has been accepted at [facility].....need pre-cert which the will submit today. Hold Bumex in the AM for 1-2 days. Charges/Coding Visit Charges Inpatient E&M: 99929 Subs Hosp L2
[2025-03-25] MEDS: Ondansetron ODT 4 MG Tablet PO (12:24)
--- NOTE | 2025-03-25 13:07 | CASEMGMT ---
Social Work IDT met with patient at bedside and sister via conference call for Team meeting. Discussed patient's progress in PT/OT/ST/SN. [facility], and requesting to set DC date. SW requested to set DC plans. Pt is opting to DC to [facility], prior to home. IDT agreeable. SW to have precert started at [facility]. If approved, pt will DC. If denied, pt will DC home, per pt's request. SW agreed. - SW updated [facility]. Provided updated clinicals. Precert to be initiated. Latasha Gay CULL GRADER COMPONENT ENGINEER
[2025-03-25 20:46] LABS: Bedside Glucose 111 mg/dL (74-106)
[2025-03-25] MEDS: Atorvastatin Calcium 40 MG Tablet PO (23:21)
[2025-03-26] VITALS (7 sets, daily range): BP systolic 140–161; BP diastolic 60–80; PULSE 60–77; RESP 12–16; TEMP 36.6–36.7; O2SAT 93–95; BMI 30.2; BMI 29.9
[2025-03-26] MEDS: Enoxaparin 40 MG/0.4 ML Syringe SC (06:38)
[2025-03-26 07:14] LABS: Bedside Glucose 106 mg/dL (74-106)
[2025-03-26] MEDS: Pantoprazole Sodium 40 MG Tablet PO (08:18)
[2025-03-26] MEDS: metFORMIN (XR) 500 MG Tablet PO ×2 (08:18→17:32)
[2025-03-26] MEDS: Losartan Potassium 25 MG Tablet PO (08:18)
[2025-03-26] MEDS: Aspirin 81 MG TAB.CHEW PO (08:18)
[2025-03-26] MEDS: Potassium Chloride Oral Tablet 10 MEQ PO (08:18)
[2025-03-26] MEDS: Lactobacillis Acidophilus 1 CAP PO ×2 (08:19→21:43)
[2025-03-26] MEDS: Senna/Docusate Sodium 1 Tablet 2 TABLET PO (08:19)
[2025-03-26] MEDS: Metoprolol(XL)Succ 25 MG Tablet PO ×2 (08:19→21:43)
[2025-03-26] MEDS: Empagliflozin 25 MG Tablet PO (08:19)
[2025-03-26] MEDS: Sertraline 100 MG Tablet PO (08:19)
--- NOTE | 2025-03-26 11:18 | PCM.TXEXTCAR ---
Diet Diet Order/Speech Therapy: 02/27/25 18:36 Diet: Cardiac: Calorie-Controlled Dietary Modifications:: Consistent Carbohydrate Fluid restriction:: 1500 mL Diet Comments: built up utensils How many daily calories?: 2000 calorie Low salt, Low fat added to diet. Routine Orders/Code Status Enema Type: Fleetz Enema Frequency: Daily PRN Suppository Type: Dulcolax 10mg Suppository Frequency: Daily PRN Code Status: Full Code DC O2, CPAP, BIPAP needs Home O2 Discharge instructions: No Therapies Weight Bearing: Full weight bearing Physical Therapy: Eval and Treat Occupational Therapy: Eval and Treat Speech Therapy: Eval and Treat Problem/Diagnosis (1) Debility: Status: Chronic Code(s): R53.81 - Other malaise Plan: Continue PT/OT/ST at SNF with hopes of transitioning home when she is stronger. She will have no assistance available during the day when her sons are at work and she must be able to get up from a chair and to the toilet without assistance. (2) Ischemic cerebrovascular accident (CVA): Status: Chronic Code(s): I63.9 - Cerebral infarction, unspecified Plan: 30 day event monitor after DC from rehab and follow up with neurology and cardiology. Since AF has never been documented she is not being discharged on an anticoagulant. I suspect She likely had PAF.......related to acute decompensated CHF with decreased EF. She has LAE on the ECHO. Comment: Right occipital lobe and left frontal lobe, likely embolic since there is involvement of both sides of the brain in more than 1 area. Has had no AF and the BRIANA showed no PFO. Etiology of emboli? (3) Quadrantanopia of right eye: Status: Acute Code(s): H53.461 - Homonymous bilateral field defects, right side Comment: Lateral inferior (4) Right sided weakness: Status: Acute Code(s): R53.1 - Weakness (5) Dysarthria: Status: Acute Code(s): R47.1 - Dysarthria and anarthria Plan: Much improved but, still not at baseline. (6) Urinary incontinence: Status: Chronic Code(s): R32 - Unspecified urinary incontinence Plan: Predated the stroke. Etiology is not known. May need follow up with urology. Suggest Dr. Lynn Escobar. (7) Fecal incontinence: Status: Acute Code(s): R15.9 - Full incontinence of feces Plan: Intermittent. (8) Depression: Status: Chronic Code(s): F32.A - Depression, unspecified Plan: Not on an antidepressant prior to stroke. Non-compliant with medication and physician follow up prior to admission tot hospital for acute on chronic CHF with a 50 lb wt gain. Now admits that depression likely contributed for inability to adequately care for herself. Tolerating Sertraline 100 mg daily with no adverse SE. Would definitely benefit from psychotherapy going forward and she is on board with this. (9) Clostridium difficile enterocolitis: Status: Resolved Code(s): A04.72 - Enterocolitis due to Clostridium difficile, not specified as recurrent Comment: Treated with 14 days of oral Vancomycin. (10) Lower GI bleed: Status: Acute Code(s): K92.2 - Gastrointestinal hemorrhage, unspecified Plan: HGB dropped from 14.6 at admission to rehab to a lindsay of 8.5. HGB at DC from rehab is 10.7 (may be a little high due to IV volume depletion....Bumex held for 2 days due to increased BUN and CREAT. Has been running from 9-9.5. (11) History of colonoscopy: Status: Chronic Code(s): Z98.890 - Other specified postprocedural states Comment: 02/26/[address] Santos (12) Diverticulosis: Status: Chronic Code(s): K57.90 - Diverticulosis of intestine, part unspecified, without perforation or abscess without bleeding (13) Colonic mass: Status: Acute Code(s): K63.89 - Other specified diseases of intestine Plan: Needs follow-up with Dr. Santos to discuss results of colonoscopy and recommendations on follow-up. Comment: 4 cm x 15 mm-excised by Dr. Santos at colonoscopy on 02/26/2025. Pathology revealed tubulovillous adenoma with prolapse changes. Positive family history of colon cancer (14) History of esophagogastroduodenoscopy (EGD): Status: Acute Code(s): Z98.890 - Other specified postprocedural states Comment: 02/26/[address] Santos (15) GERD (gastroesophageal reflux disease): Status: Chronic Code(s): K21.9 - Gastro-esophageal reflux disease without esophagitis (16) Gastritis: Status: Acute Code(s): K29.70 - Gastritis, unspecified, without bleeding (17) Duodenitis: Status: Acute Code(s): K29.80 - Duodenitis without bleeding (18) Nonischemic cardiomyopathy: Status: Chronic Code(s): I42.8 - Other cardiomyopathies Plan: EF 30-35%. Does not tolerate Entresto (even at the lowest dose) due to symptomatic orthostatic hypotension. She was transitioned to Losartan 25 mg and is tolerating this with no lighheadedness or significant orthostatic changes with standing. Will follow up with cardiology. 30 day event monitor at NM for embolic CVA's. No hx of AF. (19) Orthostatic hypotension: Status: Chronic Code(s): I95.1 - Orthostatic hypotension Plan: Suspect this is related to long standing uncontrolled DM II. Exacerbated by Entresto severely. Tolerating Cozaar 25 mg so far. Would prefer to keep her off Midodrine if possible because she has had a stroke and she has chronic CHF with reduced EF. Comment: No H. Pylori seen on bx. (20) Poor dentition: Status: Chronic Code(s): K08.9 - Disorder of teeth and supporting structures, unspecified Plan: Recommend follow up with dentist post NM from rehab. She has valvular heart disease and is at risk for endocarditis due to poor dental health. (21) Pulmonary hypertension: Status: Chronic Code(s): I27.20 - Pulmonary hypertension, unspecified Plan: Has been diagnosed with ALLYN in the past but, has never been treated.....poor follow up. (22) Nonrheumatic tricuspid valve regurgitation: Status: Chronic Code(s): I36.1 - Nonrheumatic tricuspid (valve) insufficiency (23) Nonrheumatic mitral valve regurgitation: Status: Chronic Code(s): I34.0 - Nonrheumatic mitral (valve) insufficiency (24) Biatrial enlargement: Status: Chronic Code(s): I51.7 - Cardiomegaly (25) Diastolic dysfunction: Status: Chronic Code(s): I51.89 - Other ill-defined heart diseases (26) Left bundle branch block: Status: Chronic Code(s): I44.7 - Left bundle-branch block, unspecified (27) Obstructive sleep apnea: Status: Chronic Code(s): G47.33 - Obstructive sleep apnea (adult) (pediatric) Plan: Never treated and not on Oxygen while sleeping when she came to rehab. (28) HTN (hypertension): Status: Chronic Code(s): I10 - Essential (primary) hypertension Plan: May need to tolerate a BP that is mildly elevated to prevent severe drops in BP due to orthostatic hypotension which In suspect is due to autonomic neuropathy related to long standing uncontrolled DM II. (29) Uncontrolled type 2 diabetes mellitus: Status: Chronic Plan: Long standing uncontrolled DM II due to non-compliance with diet, medication and follow up with PCP. Suspect depression has contributed to non-compliance. (30) Acute blood loss anemia (ABLA): Status: Acute Code(s): D62 - Acute posthemorrhagic anemia Comment: due to LGI bleed...stable at Dc from rehab Plan 1. DC to SNF 2. Needs follow up at [facility] for PCP. 3. 30 day event monitor at DC and then follow up with [facility] 4. Needs to follow up with Dr. Buchanan for Neurology 5. Needs to follow up with dentistry 6. consider follow up with Dr. Lynn Escobar for chronic urinary incontinence that predated the stroke. 7. Follow up with Dr. Santos for gastritis/duodenitis/tubulovillous adenoma/GERD Allergies/Procedures Done in Hospital Allergies No Known Allergies Allergy (Verified 02/21/25 19:08) Procedures: 2-D Echocardiogram (Had a BRIANA at [facility] on 02/19/2025 that showed no PFO. Transthoracic echocardiogram at [facility] on 02/13/2025 showed a 25 to 30% EF with moderate diffuse hypokinesis, diastolic dysfunction, mild to moderate mitral regurgitation, biatrial enlargement, reduced right ventricular sys) Type of Care/Length of Stay Estimated LOS: Convalescent Care Less Than 30 days Type of Care Needed: Skilled Rehab Potential: Good Prognosis: Good Additional Orders/Day of Discharge H&P will serve as current which was dated: 02/22/25 Dietary and Speech Recommendations Dietitian Recommendations/Changes: Continue cardiac, 1999 calorie controlled/consistent carbohydrate diet with fluid restriction per MD. Low salt and low fat. If changes occur in pt's nutritional status, consult RD. Discharge Plan Admission Admit Date/Time: 02/27/25 18:14 Primary Reason for Your Visit: POST STROKE DEBILITY Attending Provider: Lara Forman Primary Care Provider: Care Physician,No Primary Instructions Patient Instructions: What Are Snoring and Sleep Apnea?, Depression Affects Your Mind ..., Counseling for Depression Additional Instructions / Restrictions: 1. Does not tolerate Entresto, even at the lowest dose due to severe, symptomatic orthostatic hypotension. She is currently tolerating Losartan with no c/o lightheadedness. 2. BS's are under excellent control on Jardiance 25 mg daily and Glucophage 500 mg BID. No diarrhea. No metabolic acidosis. We were able to DC Glargine and Lispro. Will continue 2,000 calorie carb consistent diet. 3. Discharge Orders/Prescriptions Prescriptions: New bisacodyl 10 mg Suppository 10 mg MT X1 PRN (Reason: Constipation) Qty: 0 0RF magnesium hydroxide 400 mg/5 mL Suspension 30 ml PO X1 PRN (Reason: Constipation) Qty: 0 0RF losartan 25 mg Tablet 25 mg PO DAILY Qty: 0 0RF Jardiance 25 mg Tablet 25 mg PO DAILY Qty: 0 0RF sertraline 100 mg Tablet 100 mg PO DAILY Qty: 0 0RF metformin 500 mg Tablet Extended Release 24 Hr 500 mg PO BID@0800,1700 Qty: 0 0RF potassium chloride 10 mEq Tablet,Er Particles/Crystals 10 meq PO DAILYCM Qty: 1 0RF bumetanide 1 mg tablet See Rx Instructions .ROUTE .COMPLEX Qty: 1 0RF Rx Instructions: 1 mg orally Mon,Wed,Toña,Fri,Sun. 5 days a week Continued acetaminophen 325 mg Tablet 650 mg PO Q6H PRN PRN (Reason: Pain/fever) Qty: 0 0RF pantoprazole 40 mg Tablet,Delayed Release (Dr/Ec) 40 mg PO DAILY Qty: 0 0RF aspirin 81 mg capsule 81 mg PO DAILY atorvastatin 40 mg tablet 40 mg PO QHS metoprolol succinate 25 mg capsule,sprinkle,ER 24hr 25 mg PO BID Discontinued Entresto 49-51 mg Tablet 1 tab PO BID Qty: 0 0RF Jardiance 10 mg tablet 10 mg PO DAILY bumetanide 1 mg tablet 1 mg PO DAILY clopidogrel 75 mg tablet 75 mg PO DAILY insulin glargine [Lantus Solostar U-100 Insulin] 100 unit/mL (3 mL) insulin pen 15 unit subcut QHS amoxicillin-pot clavulanate 875-125 mg Tablet 1 tab PO BID Other Ambulatory Orders: 30 Day Event Recorder Preventi (Routine) Timeframe: 1 Day Facility: [facility] - Location: Cardiovascular Services Ordered By: Dr. Lara Forman Referrals / Follow Up: Jonh Santos DO [Med Staff - Active Staff] - Care Physician,No Primary [Primary Care Provider] - (6) Urinary incontinence Qualifiers: Urinary Incontinence type: unspecified incontinence Qualified Code(s): R32 - Unspecified urinary incontinence (7) Fecal incontinence Qualifiers: Fecal incontinence type: unspecified Qualified Code(s): R15.9 - Full incontinence of feces (8) Depression Qualifiers: Depression Type: unspecified Qualified Code(s): F32.A - Depression, unspecified (15) GERD (gastroesophageal reflux disease) Qualifiers: Esophagitis presence: without esophagitis Qualified Code(s): K21.9 - Gastro-esophageal reflux disease without esophagitis (16) Gastritis Qualifiers: Chronicity: acute Gastritis bleeding: without bleeding Gastritis type: unspecified gastritis Qualified Code(s): K29.00 - Acute gastritis without bleeding (28) HTN (hypertension) Qualifiers: Hypertension type: primary hypertension Qualified Code(s): I10 - Essential (primary) hypertension (29) Uncontrolled type 2 diabetes mellitus Qualifiers: Glycemic state: with hyperglycemia Qualified Code(s): E11.65 - Type 2 diabetes mellitus with hyperglycemia
[2025-03-26] MEDS: Atorvastatin Calcium 40 MG Tablet PO (21:43)
[2025-03-26] MEDS: Menthol/Lanolin/Calamine/Znox 113 GM Tube 1 APPLIC TOPICAL (21:44)
[2025-03-26 22:05] LABS: Bedside Glucose 138 mg/dL (74-106)
[2025-03-27 05:00] VITALS: BMI 29.9
[2025-03-27 06:00] VITALS: BP 156/57; PULSE 73; RESP 18; TEMP 36.5; O2SAT 95
[2025-03-27] MEDS: Enoxaparin 40 MG/0.4 ML Syringe SC (06:15)
[2025-03-27 07:37] LABS: Bedside Glucose 127 mg/dL (74-106)
[2025-03-27] MEDS: Lactobacillis Acidophilus 1 CAP PO ×2 (07:55→21:55)
[2025-03-27] MEDS: Aspirin 81 MG TAB.CHEW PO (07:55)
[2025-03-27] MEDS: Potassium Chloride Oral Tablet 10 MEQ PO (07:55)
[2025-03-27] MEDS: metFORMIN (XR) 500 MG Tablet PO ×2 (07:55→16:55)
[2025-03-27] MEDS: Losartan Potassium 25 MG Tablet PO (07:55)
[2025-03-27 07:56] VITALS: PULSE 71
[2025-03-27] MEDS: Menthol/Lanolin/Calamine/Znox 113 GM Tube 1 APPLIC TOPICAL ×2 (07:56→21:55)
[2025-03-27] MEDS: Sertraline 100 MG Tablet PO (07:56)
[2025-03-27] MEDS: Metoprolol(XL)Succ 25 MG Tablet PO ×2 (07:56→21:55)
[2025-03-27] MEDS: Pantoprazole Sodium 40 MG Tablet PO (07:56)
[2025-03-27] MEDS: Empagliflozin 25 MG Tablet PO (07:56)
[2025-03-27 07:58] VITALS: BP 136/64; PULSE 71
[2025-03-27 09:37] VITALS: BMI 29.9
--- NOTE | 2025-03-27 11:02 | PN_ITS ---
Subjective Subjective Afebrile VSS -blood pressure over the past 24 hours has ranged from 136/64 to 161/60. Today's blood pressure is 136/64. Heart rate is within normal limits. Maintaining appropriate oxygen saturation on RA Oral intake - FOOD good FLUIDS poor yesterday Blood sugars are very well-controlled with no hypoglycemia. Discussed with nursing - no problems that need addressed Reviewed the THERAPY notes and talked with therapists. Not really motivated to do therapy.....she does but, when she is discharged I do not see her doing her exercises at home. I suspected she has been chronically depressed for a very long time and not treated. Would really benefit from mental health follow up. Medication list reviewed. I reviewed the results of the overnight trending pulse ox. The oxygen saturation is 89% or less 48% of the time she was monitored. Multiple desaturations. She has been diagnosed with obstructive sleep apnea in the past but never agreed to treatment. Denies lightheadedness, even with standing. She also denies chest pain, shortness of breath, cough, palpitations, nausea/vomiting, dysuria and calf pain. She tells me she is having loose stools. She is taking senna sporadically. There are no bowel movements reported for 03/26/2025. She has had 3 bowel movements since midnight and she did get senna yesterday and the day before. Objective Data Objective Data Vital Signs: Vital Signs Temp Pulse Resp BP Pulse Ox O2 Del Method FiO2 97.7 F L 71 18 136/64 H 95 Room Air 21 03/27/25 06:00 03/27/25 07:58 03/27/25 06:00 03/27/25 07:58 03/27/25 06:00 03/27/25 10:00 03/26/25 23:04 Oxygen Delivery Method Room Air Weight: 197 lb 12.074 oz Body Mass Index (BMI) 29.9 Intake & Output: Intake and Output for Last 24 Hours 03/25/25 03/26/25 03/27/25 23:59 23:59 23:59 Intake Total 1385 / 1385 665 / 665 270 / 270 Output Total 500 / 500 1000 / 1300 300 / 300 Balance 885 / 885 -335 / -635 -30 / -30 Lab / Micro Data 03/25/25 05:21 03/25/25 05:21 Labs: Laboratory Results - last 24 hr 03/26/25 21:42: POC Glucose 138 H 03/27/25 06:13: POC Glucose 127 H Micro: Microbiology 03/01/25 17:47 Stool C. difficile GDH Antigen & Toxins - Final 03/01/25 17:47 Stool Clostridioides difficile (PCR) - Final Physical Exam Const alert, oriented x3 and no apparent distress General Appearance: cooperative HEENT Mouth: dry mucous membranes Resp normal respiratory effort and clear to auscultation bilaterally Resp Narrative: No conversational dyspnea Cardio regular rate, regular rhythm and no gallops GI GI Narrative: Soft, nondistended, no guarding with palpation, unremarkable bowel sounds. Extremity no calf tenderness General Extremity: Negative for edema Skin Rashes: no rashes Assessment & Plan Assessment/Plan (1) Debility: (2) Ischemic cerebrovascular accident (CVA): (3) Quadrantanopia of right eye: (4) Right sided weakness: (5) Dysarthria: (6) Urinary incontinence: QUALIFIERS: Urinary Incontinence type: unspecified incontinence Q ualified Code(s): R32 - Unspecified urinary incontinence (7) Fecal incontinence: QUALIFIERS: Fecal incontinence type: unspecified Qualified Code(s): R15.9 - Full incontinence of feces (8) Depression: QUALIFIERS: Depression Type: unspecified Qualified Code(s): F32.A - Depression, unspecified (9) GERD (gastroesophageal reflux disease): QUALIFIERS: Esophagitis presence: without esophagitis Qualified Code(s): K21.9 - Gastro-esophageal reflux disease without esophagitis (10) Nonischemic cardiomyopathy: (11) Orthostatic hypotension: (12) Obstructive sleep apnea: PLAN: Has never been treated for this. Had a sleep study many years ago and she does not know who ordered the test. she had it at a hotel in [place]. overnight trending pulse ozx was very abnormal. 48% of the time she was monitored the pulse ox was 89% or less. Multiple desaturations. (13) HTN (hypertension): QUALIFIERS: Hypertension type: primary hypertension Qualified Code(s): I10 - Essential (primary) hypertension PLAN: Plan 1. Continue therapy. We are awaiting precertification from the insurance company to [facility]. 2. Will need a formal sleep study postdischarge from rehab to get treated for her obstructive sleep apnea 3. Discontinue senna 4. I encouraged her to drink more. She complains about fluid restriction but, she never gets a full 1500 in which is what her restriction is. Yesterday she only took 665. We have been holding Bumex the past 2 days. Wt is decreasing. she denies lightheadedness. 5. renal profile in the AM 6. Add Wellbutrin in the AM for persistent depression. 1. Do you snore loudly? yes 2. Do you often feel tired, fatigued or sleepy during the day? Yes 3. Has anyone ever observed you stop breathing during sleep? No 4. Do you have (or are you being treated for) HTN? Yes BMI 30 AGE 59 Neck circumference 38 cm Gender female Total 4 Tired during the day. Falls asleep when in a car and a passenger. Memory difficulties, depression, recent CVA (embolic.....PAF when hypoxic), falls asleep watching TV and reading, Cardiomyopathy with CHF, daytime sleepiness, frequently has no energy. [facility] [place] but, did give us an extension. Will continue therapy. She will not have assistance when her sons are at work. Must be able to get out of a chair and get herself to the BR. She will need home O2 at [place]. D/W SW. Will refer for an overnight sleep study. would like to be able to do this on the night she is discharged from rehab........SW to try and coordinate with the sleep lab. Charges/Coding Visit Charges Inpatient E&M: 70787 Subs Hosp L2
[2025-03-27 12:41] VITALS: BMI 29.9
--- NOTE | 2025-03-27 12:43 | CASEMGMT ---
Social Work Insurance denied [facility] admission. P2P option available. RAAD spoke with IDT and confirmed pt can DC home. pt is beginning to plateau and concerns for situational depression. Dr ordering a sleep study, if that can be coordinated prior to pt's DC. Pt will need overnight O2. New testing will need completed. - RAAD spoke with pt to update on above. Pt agreed and stated family will be able to assist pt at home. Inquired about HHC and DME needs. Pt agreed to skilled HHC and requests a FWW. RAAD to coordinate. - RAAD left VM with Sleep Lab Manger to inquire about availability with goal to DC pt by the end of the week. Precert will need obtained for sleep study first. RAAD will await outcome. Latasha Gay [employer]RE[employer] MOTORMAN FIRE FIGHTER
[2025-03-27 13:36] VITALS: BP 116/56; BP 125/59; BP 134/58; PULSE 64; PULSE 69; PULSE 75
[2025-03-27 17:29] VITALS: BP 146/74; PULSE 64; RESP 15; TEMP 36.3; O2SAT 96
[2025-03-27 21:55] VITALS: BP 153/57; PULSE 64
[2025-03-27] MEDS: Atorvastatin Calcium 40 MG Tablet PO (21:55)
[2025-03-27 22:17] LABS: Bedside Glucose 120 mg/dL (74-106)
[2025-03-27 23:28] VITALS: BMI 29.9
[2025-03-28 06:00] VITALS: BP 149/78; PULSE 83; RESP 16; TEMP 36.1; O2SAT 97
[2025-03-28] MEDS: Enoxaparin 40 MG/0.4 ML Syringe SC (06:05)
[2025-03-28 06:50] LABS: Bedside Glucose 114 mg/dL (74-106)
[2025-03-28] MEDS: Aspirin 81 MG TAB.CHEW PO (08:46)
[2025-03-28] MEDS: Losartan Potassium 25 MG Tablet PO (08:46)
[2025-03-28] MEDS: buPROPion (XL) 150 MG TABLET.XL PO (08:46)
[2025-03-28] MEDS: Menthol/Lanolin/Calamine/Znox 113 GM Tube 1 APPLIC TOPICAL ×2 (08:46→22:28)
[2025-03-28] MEDS: Potassium Chloride Oral Tablet 10 MEQ PO (08:46)
[2025-03-28] MEDS: Pantoprazole Sodium 40 MG Tablet PO (08:46)
[2025-03-28] MEDS: Sertraline 100 MG Tablet PO (08:46)
[2025-03-28] MEDS: Empagliflozin 25 MG Tablet PO (08:46)
[2025-03-28] MEDS: metFORMIN (XR) 500 MG Tablet PO ×2 (08:46→17:13)
[2025-03-28 08:47] VITALS: BP 112/47; PULSE 77
[2025-03-28] MEDS: Metoprolol(XL)Succ 25 MG Tablet PO ×2 (08:47→22:28)
[2025-03-28 11:19] LABS: Albumin, Serum 4.1 g/dL (3.5-5.0); Anion Gap 14 (5-15); BUN 35 mg/dL (4-19); BUN/Creat Ratio 26.5 RATIO (10-20); Calcium,Total 9.8 mg/dL (7.6-11.0); Carbon Dioxide 25.9 mmol/L (21.0-32.0); Chloride 95 mmol/L (98-108); Creatinine, Serum 1.33 mg/dL (0.70-1.20); EST Glomerular Filtration Rate 46 (>60); Estimated Creatinine Clearance 53.36 ml/min (50-250); Glucose 170 mg/dL (70-99); Potassium 4.4 mmol/L (3.3-5.1); Sodium Level 135 mmol/L (133-145)
[2025-03-28 12:14] VITALS: BMI 29.8
[2025-03-28] MEDS: Bumetanide 0.5 MG Tablet 1 MG PO (13:26)
--- NOTE | 2025-03-28 14:16 | CASEMGMT ---
Social Work Sleep lab does not have availability for another 2 weeks and pt is ready to DC. Pt to follow up as an outpatient. - SW spoke with pt to inform of sleep lab scheduling. Offered to DC 03/30 home. Pt agreeable and family and can transport. SW to coordinate overnight O2 and FWW. SW referred to 25 skilled [facility] agencies proactively and none accepts pt's insurance. Discussed outpatient PT/ST. Pt agreed. Discussed options. Pt agreeable to [facility]. SW to make referral. - SW referred to [facility] via [facility]. Faxed referral to [facility] PT/ST. Faxed referral to [facility]. Plan: DC home with family 03/30, [facility] PT/ST, overnight O2, FWW Latasha Gay REHAB SERVICES AIDE [employer]VERTISING [employer]PATCH [employer]ERKS SUPERVISOR
[2025-03-28 15:45] VITALS: BMI 29.8
[2025-03-28 18:00] VITALS: BP 118/50; PULSE 80; RESP 16; TEMP 36.6; O2SAT 95
[2025-03-28 20:53] VITALS: PULSE 81; O2SAT 93
[2025-03-28 22:26] VITALS: BP 140/65; PULSE 69; RESP 16; O2SAT 96
[2025-03-28 22:28] VITALS: BP 140/65; PULSE 69
[2025-03-28] MEDS: Atorvastatin Calcium 40 MG Tablet PO (22:28)
[2025-03-28 22:58] LABS: Bedside Glucose 130 mg/dL (74-106)
[2025-03-28 23:59] VITALS: BMI 29.8
[2025-03-29 05:23] VITALS: BP 138/69; PULSE 88; RESP 16; TEMP 36.1; O2SAT 94
[2025-03-29] MEDS: Enoxaparin 40 MG/0.4 ML Syringe SC (05:23)
[2025-03-29 07:14] LABS: Bedside Glucose 146 mg/dL (74-106)
[2025-03-29 08:16] VITALS: BP 151/66; PULSE 75
[2025-03-29] MEDS: Aspirin 81 MG TAB.CHEW PO (08:16)
[2025-03-29] MEDS: buPROPion (XL) 150 MG TABLET.XL PO (08:16)
[2025-03-29] MEDS: metFORMIN (XR) 500 MG Tablet PO ×2 (08:16→16:46)
[2025-03-29] MEDS: Losartan Potassium 25 MG Tablet PO (08:16)
[2025-03-29] MEDS: Metoprolol(XL)Succ 25 MG Tablet PO ×2 (08:16→21:58)
[2025-03-29] MEDS: Pantoprazole Sodium 40 MG Tablet PO (08:16)
[2025-03-29] MEDS: Empagliflozin 25 MG Tablet PO (08:16)
[2025-03-29] MEDS: Potassium Chloride Oral Tablet 10 MEQ PO (08:16)
[2025-03-29] MEDS: Menthol/Lanolin/Calamine/Znox 113 GM Tube 1 APPLIC TOPICAL ×2 (08:17→22:05)
[2025-03-29] MEDS: Sertraline 100 MG Tablet PO (08:17)
[2025-03-29 09:48] VITALS: BMI 29.8
[2025-03-29 10:00] VITALS: BMI 29.8
[2025-03-29] MEDS: 0.9% Normal Saline (1000mL) 1,000 ML 250 ML IV (12:45)
--- NOTE | 2025-03-29 13:20 | PCM.DC ---
Discharge Instructions Diet Discharge Diet: - (2,000 calorie, carb consistent, heart healthy diet. ) DC O2, CPAP, BIPAP needs Home O2 Discharge instructions: Yes Type of respiratory needs?: Oxygen (2LPM) Oxygen frequency: With Sleeping Oxygen liters per minute when sleepin LPM Dressing / Incision Discharge Activity: May Not Drive (No driving until you have attended the drivers rehab program at [facility] and they approve you to drive.), May Shower and Use Walker Weight Bearing Status: Full weight bearing Keep extremity elevated above heart level: Legs Dressing / Incision Call your doctor if you observe: Fever of 101 or Higher, Shortness of breath, Dizziness, Fainting spells, Swelling in the ankles, Chest pain, Increased palpitations (irregular heartbeat), Calf discomfort and - (weight gain of more than 5 lbs in 1 week. STROKE symptoms: facial droop, slurred speech, inability to get words out, weakness on 1 side of the body and not the other, numbness on 1 side of the body and not the other, inability to maintain your balance sitting or standing, vertigo. ) Follow Up Care When: appts are listed at the end of this document. Test Results: Test results from this visit will be discussed in further detail at your follow-up appointment, if applicable. Pending Tests Upon Discharge: none Discharge Plan Admission Admit Date/Time: 02/27/25 18:14 Primary Reason for Your Visit: POST STROKE DEBILITY Attending Provider: Lara Forman Primary Care Provider: Care Physician,No Primary Instructions Patient Instructions: What Are Snoring and Sleep Apnea?, Depression Affects Your Mind ..., Counseling for Depression Additional Instructions / Restrictions: 1. You have sleep apnea and this is a risk for atrial fibrillation and strokes. I suspect you are having AFIB at night when you are sleeping and the oxygen saturation drops. You will be scheduled for a sleep study. The sleep lab will call you to schedule this. Until you have your sleep study and get treated you will need to wear oxygen 2 LPM any time you are sleeping. 2. We are discharging you with an order for a heart monitor that you will wear for 30 days to see if you are having intermittent AFIB. They will mail it to your house. your blood sugars have been under very good control and you are not currently taking insulin. If you do not comply with the diet the blood sugars will not be controlled and you may need to go back on insulin. 3. It is very important to take your medications as directed and that you follow up with your physicians. 4. I think that you have been depressed and not taking care of yourself for quite a long time. You had a major stroke. You have chronic congestive heart failure and your heart does not squeeze well. I think in order for you to want to take care of yourself and get better the depression needs to be aggressively treated. You need medication and counselling and I hope you are able to get this help and you are open to seeking out help. You will have much better quality of life. 5. If you have any questions after you leave rehab please do not hesitate to call me. You made very good progress on rehab and you have been a pleasure to work with. Take care of yourself. OFFICE: [phone] CELL: [phone] NURSES STATION ON REHAB: [phone] Discharge Orders/Prescriptions Prescriptions: New bumetanide 0.5 mg Tablet 1 mg PO SuMoWeThFr Qty: 30 0RF sertraline 100 mg tablet 100 mg PO DAILY Qty: 30 0RF potassium chloride 10 mEq capsule, extended release 10 meq PO DAILY Qty: 30 0RF Jardiance 25 mg tablet 25 mg PO DAILY Qty: 30 0RF losartan 25 mg tablet 25 mg PO DAILY Qty: 30 0RF metformin [Glucophage XR] 500 mg tablet extended release 24 hr 500 mg PO BID Qty: 60 0RF Continued acetaminophen 325 mg Tablet 650 mg PO Q6H PRN PRN (Reason: Pain/fever) Qty: 0 0RF atorvastatin 40 mg tablet 40 mg PO QHS Qty: 30 0RF pantoprazole 40 mg Tablet,Delayed Release (Dr/Ec) 40 mg PO DAILY Qty: 30 0RF metoprolol succinate 25 mg capsule,sprinkle,ER 24hr 25 mg PO BID Qty: 60 0RF aspirin 81 mg capsule 81 mg PO DAILY Qty: 30 0RF Discontinued Entresto 49-51 mg Tablet 1 tab PO BID Qty: 0 0RF Jardiance 10 mg tablet 10 mg PO DAILY bumetanide 1 mg tablet 1 mg PO DAILY clopidogrel 75 mg tablet 75 mg PO DAILY insulin glargine [Lantus Solostar U-100 Insulin] 100 unit/mL (3 mL) insulin pen 15 unit subcut QHS amoxicillin-pot clavulanate 875-125 mg Tablet 1 tab PO BID Other Ambulatory Orders: 30 Day Event Recorder Preventi (Routine) Timeframe: 1 Day Facility: [facility] - Location: Cardiovascular Services Ordered By: Dr. Lara Forman Referrals / Follow Up: 30 Day Event Monitor [Other] (Monitor will be mail to your house with instructions on how to use) [facility] [Provider Group] - 04/02/25 9:00 am Ryanne Pacheco NP-C [Med Staff - Casing Operator] - 04/10/25 10:15 am Angy Lundy PA [Med Staff - Adv Practice Prof] - 04/02/25 3:00 pm Disposition Disposition (needs filled in before D/C Order can be placed): Home, Self Care
--- NOTE | 2025-03-29 16:48 | DS.PCM_ITS ---
Providers Date of Admission: 02/27/25 Date of Discharge: 03/30/25 Primary Care Physician: No Primary Care Phys Reason For Visit: CVA Diagnosis Discharge Diagnosis (1) Debility: Status: Chronic Code(s): R53.81 - Other malaise Plan: Due to embolic CVA's in the R occipital and left frontal lobes/brady radiata. Has a very abnormal overnight trending pulse ox with multiple desaturations. Has been diagnosed with ALLYN years ago and never followed up for tx. I suspect she is having PAF when she is hypoxic. 30 day event monitor ordered at [place] from rehab and then she should follow up with [facility]. (2) Ischemic cerebrovascular accident (CVA): Status: Chronic Code(s): I63.9 - Cerebral infarction, unspecified (3) Quadrantanopia of right eye: Status: Resolved Code(s): H53.461 - Homonymous bilateral field defects, right side (4) Right sided weakness: Status: Chronic Code(s): R53.1 - Weakness Plan: Much improved from admission (5) Dysarthria: Status: Resolved Code(s): R47.1 - Dysarthria and anarthria Plan: Still with a R facial droop. (6) Urinary incontinence: Status: Chronic Code(s): R32 - Unspecified urinary incontinence Qualifiers: Urinary Incontinence type: unspecified incontinence Qualified Code(s): R32 - Unspecified urinary incontinence (7) Fecal incontinence: Status: Acute Code(s): R15.9 - Full incontinence of feces Qualifiers: Fecal incontinence type: unspecified Qualified Code(s): R15.9 - Full incontinence of feces Plan: Intermittent. Pt feels this is due to loose stools/urgency. She has been taken off stool softeners. She is on Metformin XL 500 mg BID.......if the diarrhea continues may need to decrease the dose or DC. (8) Depression: Status: Chronic Code(s): F32.A - Depression, unspecified Qualifiers: Depression Type: unspecified Qualified Code(s): F32.A - Depression, unspecified Plan: Long standing. Untreated. Tolerating Sertraline 100 mg daily at DC. Sleeping well at night. More interactive. Good appetite. Denies suicidal ideation. Seems much more likely to foolow up with psychotherapy and antidepressant. (9) GERD (gastroesophageal reflux disease): Status: Chronic Code(s): K21.9 - Gastro-esophageal reflux disease without esophagitis Qualifiers: Esophagitis presence: without esophagitis Qualified Code(s): K21.9 - Gastro-esophageal reflux disease without esophagitis (10) Nonischemic cardiomyopathy: Status: Chronic Code(s): I42.8 - Other cardiomyopathies Plan: EF is 30-35%. Had a 50 lb weight gain at admission to acute hospital and then had a stroke while in the hospital. Non-compliant with medications as an OP. Came to rehab on Entresto but, she has orthostatic hypotension (suspect due to autonomic neuropathy due to longstanding uncontrolled diabetes mellitus) and she did not tolerate Entresto. It was discontinued for several days and she was restarted on the lowest dose and she was intolerant of this dose as well. She is being discharged from acute rehab on Cozaar 25 mg daily. Systolic blood pressure is sometimes over 140 when she is lying down however I believe we have to tolerate this because when she stands up she is still orthostatic. She had no lightheadedness at the time of discharge from acute rehab. (11) Orthostatic hypotension: Status: Chronic Code(s): I95.1 - Orthostatic hypotension Plan: More likely than not secondary to autonomic neuropathy due to uncontrolled type 2 diabetes mellitus. (12) Obstructive sleep apnea: Status: Chronic Code(s): G47.33 - Obstructive sleep apnea (adult) (pediatric) Plan: Has never been treated for this. Had a sleep study many years ago and she does not know who ordered the test. She had it at a hotel in [place]. Overnight trending pulse ox was very abnormal. 48% of the time she was monitored the pulse ox was 89% or less. Multiple desaturations. she is being DC'd from rehab on Home O2 while sleeping and a order was placed for a sleep study. The sleep lab is going to call her after DC to arrange a time for the sleep study. (13) HTN (hypertension): Status: Chronic Code(s): I10 - Essential (primary) hypertension Qualifiers: Hypertension type: primary hypertension Qualified Code(s): I10 - Essential (primary) hypertension Plan: Blood pressure 1 day prior to discharge from rehab ranged from 118/50 to 151/66. Orthostatics were negative and she denied lightheadedness. (14) Lower GI bleed: Status: Resolved Code(s): K92.2 - Gastrointestinal hemorrhage, unspecified (15) Clostridium difficile enterocolitis: Status: Resolved Code(s): A04.72 - Enterocolitis due to Clostridium difficile, not specified as recurrent (16) Acute blood loss anemia (ABLA): Status: Acute Code(s): D62 - Acute posthemorrhagic anemia Plan: Hemoglobin on 03/25/2025 was 10.7 and it has been stable. (17) History of colonoscopy: Status: Chronic Code(s): Z98.890 - Other specified postprocedural states (18) History of esophagogastroduodenoscopy (EGD): Status: Acute Code(s): Z98.890 - Other specified postprocedural states (19) Duodenitis: Status: Acute Code(s): K29.80 - Duodenitis without bleeding (20) Gastritis: Status: Acute Code(s): K29.70 - Gastritis, unspecified, without bleeding Qualifiers: Chronicity: acute Gastritis bleeding: without bleeding Gastritis type: unspecified gastritis Qualified Code(s): K29.00 - Acute gastritis without bleeding (21) Colonic mass: Status: Acute Code(s): K63.89 - Other specified diseases of intestine Plan: This was excised by Dr. 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 She is going to follow-up with Dr. Santos as an outpatient. (22) Poor dentition: Status: Chronic Code(s): K08.9 - Disorder of teeth and supporting structures, unspecified Plan: Highly recommended follow-up with dentistry, especially since she is known to have some valvular heart disease. (23) Nonrheumatic tricuspid valve regurgitation: Status: Chronic Code(s): I36.1 - Nonrheumatic tricuspid (valve) insufficiency (24) Nonrheumatic mitral valve regurgitation: Status: Chronic Code(s): I34.0 - Nonrheumatic mitral (valve) insufficiency (25) Biatrial enlargement: Status: Chronic Code(s): I51.7 - Cardiomegaly (26) Diastolic dysfunction: Status: Chronic Code(s): I51.89 - Other ill-defined heart diseases (27) Left bundle branch block: Status: Chronic Code(s): I44.7 - Left bundle-branch block, unspecified (28) Uncontrolled type 2 diabetes mellitus: Status: Chronic Qualifiers: Glycemic state: with hyperglycemia Qualified Code(s): E11.65 - Type 2 diabetes mellitus with hyperglycemia Plan: Blood sugars are very well controlled on Jardiance 25 mg daily (has had no metabolic acidosis) and metformin XR 500 mg twice daily. Has had loose stools but, was taking stool softeners. These were discontinued a couple days prior to DC from rehab. If the loose stools and fecal incontinence continue will likely need to decrease the dose of the Glucophage to once a day. She has been taken off Glargine and Lispro. She is on a 2,000 calorie carb control diet. Jardiance was increased from 10 to 25 mg and she has tolerated well with no metabolic acidosis. the blood sugars have been very well controlled on this regimen. Plan 1. Insurance denied SNF. She is going to be discharged home tomorrow with OP PT and ST at [facility]. 2. Home O2 arranged by SW and she will use 2 LPM any time she is sleeping. 3. Follow up appts have been made for her. 4. She will follow up at the [facility] for primary care. 5. She will follow up with Dr. Santos 6. 30 day event monitor ordered for embolic CVA's and then she should follow up with [facility] for CM, chronic CHF and to review the results of the heart monitor. 7. I recommended she see a dentist 8. She needs psychotherapy and ongoing adjustment of antidepressant regimen. 9. The sleep lab will call her to schedule a sleep study. Medications at Discharge Home Medications acetaminophen 325 mg tablet 650 mg (2 x 325 mg) PO Q6H PRN PRN Pain/fever #0 tabs 02/27/25 aspirin 81 mg capsule 81 mg PO DAILY heart health #30 caps 03/29/25 atorvastatin 40 mg tablet 40 mg PO QHS cholesterol #30 tabs 03/29/25 bumetanide 0.5 mg tablet 1 mg (2 x 0.5 mg) PO SuMoWeThFr #30 tabs 03/29/25 empagliflozin 25 mg tablet (Jardiance) 25 mg PO DAILY #30 tabs 03/29/25 losartan 25 mg tablet 25 mg PO DAILY #30 tabs 03/29/25 metformin 500 mg tablet,extended release 24 hr (Glucophage XR) 500 mg PO BID #60 tabs 03/29/25 metoprolol succinate 25 mg capsule sprinkle, ext. release 24 hr 25 mg PO BID BP #60 ea 03/29/25 pantoprazole 40 mg tablet,delayed release 40 mg PO DAILY stomach #30 tabs 03/29/25 potassium chloride 10 mEq capsule,extended release 10 meq PO DAILY #30 caps 03/29/25 sertraline 100 mg tablet 100 mg PO DAILY #30 tabs 03/29/25 metformin 500 mg tablet,extended release 24 hr (Glucophage XR) 500 mg PO DAILY #30 tabs 03/30/25 Hospital Course Operations None Procedures None Summary of Care Provided Minutes Spent on Discharge: 45 Hospital Course: KELSIE HOYT, is a 59 YO F with a past medical history of left bundle branch block, mild nonobstructive coronary artery disease, pulmonary hypertension, essential hypertension, GERD, uncontrolled diabetes mellitus type 2, small PFO, noncompliance with medications, obstructive sleep apnea, history of meningioma (status post resection) obesity, hyperlipidemia, old TIA and nonischemic CM with a 30-35 % EF (on Entresto) who presented to the emergency department at [facility] on 02/12/2025 complaining of increased shortness of breath, bilateral lower extremity swelling and a 50 pound weight gain over the previous few months. Had been noncompliant with her medications. She was transferred to [facility] on 02/13/2025 for management of acute on chronic congestive heart failure. Transthoracic echocardiogram on 02/13/2025 showed increased left ventricular cavity size with an ejection fraction of 25 to 30% and moderate diffuse hypokinesis. Diastolic dysfunction was present. There was mild to moderate mitral regurgitation. The left atrium was mildly dilated. Right ventricular systolic function was decreased and the right ventricular systolic pressure was estimated at 45. There was mild to moderate tricuspid regurgitation and the right atrium was dilated. While hospitalized at [facility] she developed slurred speech. A stroke alert was called. Noncontrast CT brain showed no acute intracranial pathology. CTA of the head and neck showed no evidence of flow-limiting stenosis or large vessel occlusion. MRI of the brain without contrast showed bilateral infarcts in the right occipital lobe and the left frontal lobe/brady radiata. She had a transesophageal echocardiogram on 02/19/2025 that showed no PFO (although she had a diagnosis of small PFO in the past). LDL was 63 and the HDL was 43. Triglycerides were 144. HGBA1C was 10.2. Post stroke she was seen by PT/OT/ST and acute inpt rehab was recommended. She was transferred to the acute inpt rehab unit at [facility] on 02/21/25 for 3 hours of therapy daily to restore function/independence at or near her level prior to stroke. 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 She drives. Her son lives with her. Not long after arriving on rehab she developed bloody diarrhea while taking ASA, Plavix and Lovenox. HGB dropped from 14.6 at admission to rehab on 02/22/2025 to 10.7 on the evening of 02/24/2025. Aspirin, Plavix and Lovenox were placed on hold. She was transferred to the acute side of the hospital for GI evaluation. A CT of the abdomen with contrast showed finding consistent with active bleeding within the patient's proximal descending colon near the splenic flexure. Dr. Santos from gastroenterology was consulted. On 02/26/2025 she underwent EGD that showed an irregular Z-line which was biopsied. There was a small hiatal hernia present. There was localized moderately erythematous mucosa without bleeding in the gastric body and biopsies were taken. There was patchy mild erythematous mucosa without active bleeding and no stigmata of bleeding found in the duodenal bulb, and the second portion of the duodenum and in the third portion of the duodenum. Biopsies were taken. Colonoscopy showed localized moderate inflammation in the descending colon at the splenic flexure thought to be secondary to ischemic colitis. There was diverticulosis in the rectosigmoid colon, sigmoid colon, descending colon, splenic flexure, transverse colon and hepatic flexure. There was a polypoid nonobstructing large mass found in the ascending colon which measured 4 cm in length and 15 mm in diameter. There was no bleeding present. The polyp was removed with a saline injection- lift technique using a cold snare. The area was tattooed with an injection of 1 mL of Natalie ink and the specimen was sent to pathology. The hemoglobin remained stable at approximately 9 and she was transferred back to [facility] inpatient rehab on 02/28/2024 with 3 hours of PT/OT/ST to restore function/independence at or near her level prior to the stroke. The path on the polyp was consistent with tubulovillous adenoma. She has follow-up scheduled with Dr. Santos. HGB remained stable following transfer back to rehab. She was started on Sertraline for depression. She denied suicidal ideation. Affect was very flat and she admitted to feeling depressed. She was not taking an antidepressant at admission to the hospital and she was not getting any psychotherapy. She was not taking her meds and she had been neglecting her physical well being and dental health. She tolerated Sertraline without adverse side effects and mood improved but, she is still feeling depressed, but better, at the time of DC from rehab. She is agreeable to get counselling and to following up with psychiatry for med management. BS's were well controlled while on rehab. We were able to discontinue insulin. Jardiance was increased from 10 mg to 25 mg daily. she has no metabolic acidosis and increasing Jardiance will also benefit kidneys and CM/CHF. She has been on Metformin XR. She tolerated 500 mg once a day with no diarrhea. When the dose was increased to BID she developed loose stool but, she was also receiving stool softeners. Stool softeners were discontinued but she continued to have loose stool. Metformin was decreased to once daily on the day of DC. She may need an additional medication to keep the blood sugars well controlled and this will be addressed by her new PCP. She will be following up at [facility] post DC from rehab. Kelsie came to us on Entresto 49/51 mg for non-ischemic CM with a 30-35% EF. She was unable to tolerate this due to severe symptomatic orthostatic hypotension. It was discontinued for a few days to allow the orthostatic sx to resolve. We restarted Entresto at 24/26 mg daily. she once again became very dizzy and had worsening orthostatic hypotension. Entresto was discontinued and she was started on Cozaar 25 mg daily. She is able to tolerate this with no c/o lightheadedness. The systolic BP is mildly elevated at times when she is lying down but, I think this needs to be tolerated to prevent symptomatic orthostasis with increased doses of antihypertensives. I suspect the orthostatic hypotension is due to long standing uncontrolled DM II. At the time of DC the lungs are CTA. Kelsie was diagnosed with ALLYN many years ago and she has never followed up to be treated for this. An overnight trending pulse ox was obtained and 48% of the time she was monitored the oxygen saturation was 89% or less with multiple desaturations. A sleep study was ordered in the sleep lab will call her to schedule this postdischarge from rehab. She will be discharged home on oxygen at 2 L/min anytime she is sleeping. She had embolic CVA's. She has no AF any time I have listened to her during the day but, I suspect she may be having PAF at night when hypoxic. A 30 day event monitor was ordered at DC from rehab. She will need to follow up with cardiology post DC to discuss the results of the event monitor and to manage the CM. Kelsie made good progress on rehab. At the time of DC from rehab she is ambulating 270 feet with a front wheeled walker at supervision while on the rehab unit. She has ambulated up to 315 feet at standby assist on various surfaces with a front wheel walker. To ascend/descend 5 steps of various heights x 2 trials without rest to complete 10 steps in total at standby assist. She is supervision/set up for eating and standby assist for grooming, bathing, toileting and toilet transfer. She requires minimal assistance with upper body dressing and she is contact-guard assist for lower body dressing. She is contact-guard assist for tub/shower transfer. She is persistently incontinent of urine and this predated the stroke. she is occasionally incontinent of stool but, this is more likely than not do to loose stool and inability to hold it until nursing arrives to assist her. Kelsie was discharged home on 03/30/25. She will have OP PT/ST at [facility]. The sleep lab will be calling her to arrange an overnight sleep study. The SW arranged for home O2 and she will wear this at 2 LMP anytime she is sleeping. A 30 day event monitor has been ordered. She will follow up at [facility] for primary care and she will also need to follow up with Dr. Santos for polyps and LGI bleed. I recommended she see a dentist for poor dental health in pt with valvular heart disease. She will need to follow up with cardiology going forward. Physical Exam Const alert, oriented x3 and no apparent distress Constitutional Narrative: Sitting in the recliner at the bedside. Appears older than her stated age. She is more interactive than she was at admission to rehab and affect is not as flat. she has been cooperative with therapy. She denies any suicidal ideation but, tells me that she still feels somewhat depressed. General Appearance: cooperative HEENT head/scalp atraumatic and hearing grossly normal bilaterally HEENT Narrative: poor dental health Has not followed up with a dentist in several years. Tongue protrudes on the midline now. Still with R facial droop. Eyes PERRL, EOMs intact bilaterally and conjunctivae normal Eyes Narrative: Mild scleral icterus. No discharge from the eyes. No visual field cuts. Quadrantanopia has resolved. Neck supple, No nodes and no carotid bruits General: trachea midline Chest Chest: symmetrical chest wall rise Resp Resp Narrative: Somewhat decreased breath sounds throughout, most pronounced in the right lower lung. CTA. Not tachypneic. Respirations are not labored. No conversational dyspnea. Not tachypneic with exertion. Effort and Inspection: able to speak in complete sentences Cardio regular rate, regular rhythm, S1 normal heart sound, S2 normal heart sound, no murmurs, no rub and no gallops Cardio Narrative: No ectopy GI normal to inspection, nondistended, normoactive bowel sounds, soft to palpation and non-tender GI Narrative: No guarding with palpation no CVA tenderness Narrative: Continuously incontinent of urine since admission to rehab. Denies dysuria. Extremity no calf tenderness and no pedal edema Skin no jaundice Skin Narrative: No rashes General Skin Exam: no breakdown Rashes: no rashes Neuro oriented x3 and moves all extremities Neuro Narrative: She has no drift with the right upper extremity or right lower extremity however she is weak on the right leg when compared to the left. Right facial droop persist but, has improved. Ataxic with the right upper extremity has resolved. No extinction. No aphasia. Dysarthria has improved significantly and I am able to understand her easily. speech is still not as crisp as it once was. R side neglect has resolved. No ataxia with the right lower extremity. She is right-hand dominant. No tremors. Psych cooperative, denies hallucinations and denies suicidal ideation Psych Narrative: Affect is less flat. Tells me that she is feeling better and she thinks she will be able to follow through on taking her medications and following up with physicians. She is much more engaged when we are talking and she is making good eye contact with me. She is willing to have psychotherapy and to follow up with a psychiatrist. Appearance: grossly normal, appropriate, well kempt and other Appears older than her stated age Attitude: calm Activity / Motor Behavior: appropriate eye contact; Negative for psychomotor agitation, fidgetting, disorganized or restless Mood & Affect: depressed Thought Process: normal thought process, No disorganized, No flight of ideas, No loose associations, No perseverating, No tangential, No racing thoughts and other Tells me she is having some trouble with word finding. Attention / Concentration: attention grossly intact Weight / BMI Weight Weight: 197 lb 2 oz Body Mass Index (BMI) 29.8 ABG / Lab / Microbiology Data 03/25/25 05:21 03/28/25 10:30 Laboratory: Laboratory Results - last 24 hr 03/28/25 22:34: POC Glucose 130 H 03/29/25 06:43: POC Glucose 146 H Microbiology: Microbiology 03/01/25 17:47 Stool C. difficile GDH Antigen & Toxins - Final 03/01/25 17:47 Stool Clostridioides difficile (PCR) - Final Indicators for Scoring Admitted with or Primary Diagnosis of CVA/Stroke: Yes Hx of CVA/Stroke: Yes Modified Kamryn Score MRS Score at time of Evaluation: 3-Moderate disability NIHSS NIHSS 1a. Level of Consciousness: 0 - Alert; keenly responsive 1b. LOC Questions: 0 - Answers BOTH questions correctly 1c. LOC Commands: 0 - Performs BOTH tasks correctly 2. Best Gaze: 0 - Normal 3. Visual: 0 - No visual loss 4. Facial Palsy: 2 - Partial paralysis (total or near-total paralysis of lower face) (R face) 5a. Left Arm: 0 - No drift; arm holds 90 (or 45) degrees for full 10 seconds 5b. Right Arm: 0 - No drift; arm holds 90 (or 45) degrees for full 10 seconds 6a. Left Le - No drift; leg holds 30-degree position for full 5 seconds 6b. Right Le - No drift; leg holds 30-degree position for full 5 seconds (no drift with the R leg but, it is weaker than the left) 7. Limb Ataxia: 0 - Absent 8. Sensory: 0 - Normal; no sensory loss 9. Best Language: 0 - No aphasia; normal 10. Dysarthria: 0 - Normal 11. Extinction and Inattention: 0 - No abnormality Total: 2 Stroke Questions Stroke Team Activated: No D/C Instructions Discharge Diet: - (2,000 calorie, carb consistent, heart healthy diet. ) Weight Bearing Status: Full weight bearing Keep extremity elevated above heart level: Legs Call your doctor if you observe: Fever of 101 or Higher, Shortness of breath, Dizziness, Fainting spells, Swelling in the ankles, Chest pain, Increased palpitations (irregular heartbeat), Calf discomfort and - (weight gain of more than 5 lbs in 1 week. STROKE symptoms: facial droop, slurred speech, inability to get words out, weakness on 1 side of the body and not the other, numbness on 1 side of the body and not the other, inability to maintain your balance sitting or standing, vertigo. ) DC O2, CPAP, BIPAP Needs RN Home O2 qualification: 2 No Data to Display PSN CPAP & BiPAP: BiPAP & CPAP Settings per PSN Fraction of Inspired Oxygen ( 03/28/25 20:53 FIO2) Home Oxygen Instructions: Home O2 discharge Instructions Type of respiratory needs? Oxygen 03/29/25 13:29 DC Oxygen Instruction Oxygen frequency With Sleeping 03/29/25 13:29 Oxygen liters per minute when 2 LPM 03/29/25 13:29 sleeping Home O2 Discharge instructions: Yes Type of respiratory needs?: Oxygen (2LPM) Oxygen frequency: With Sleeping Oxygen liters per minute when sleepin LPM DC home with Oxygen: Yes Home O2 MD Review: I have reviewed the oxygen testing, and the patient qualifies for home oxygen equipment and portability. The patient is mobile in the home and the community. Pending Tests Upon Discharge: none When: appts are listed at the end of this document. Meaningful Use Info Meaningful Use Meaningful Use Diagnoses (Choose all that apply): Ischemic CVA (Right occipital lobe and left frontal lobe/brady radiata - suspected to be embolic. ) CVA Therapy Assessed for PT,OT and/or ST?: Yes Ischemic Stroke Antithrombotic order at d/c?: Yes Dx of Atrial fib/flutter?: No Anticoagulant at discharge?: No Reason anticoagulant not ordered: Treatment not Indicated Statin Dosing Therapy Reference: STATIN DOSE THERAPY REFERENCE: * Patients > 75 years receive moderate or high dose statin therapy. * Patients 75 years or YOUNGER should receive HIGH intensity statin dose unless contraindicated. You will be required to document reason for non-treatment if statin daily dose does not meet guidelines. HIGH DOSE STATIN THERAPY DAILY Atorvastatin > than or = to 40 mg Rosuvastatin > than or = to 20 mg Amlodipine + Atorvastatin > than or = to 2.5/40 mg Ezetimibe + Simvastatin 10/80 mg Simvastatin 80mg Statins at discharge?: Yes If patient is 75 or younger, pt will be discharged on HIGH intensity statin.: Y es Primary Dx Acute Ischemic CVA?: Yes IV thrombolytic ordered during stay?: No Reason IV thrombolytic not ordered: Procedure not Indicated Discharge Plan Admission Admit Date/Time: 02/27/25 18:14 Primary Reason for Your Visit: POST STROKE DEBILITY Attending Provider: Lara Forman Primary Care Provider: Care Physician,No Primary Instructions Patient Instructions: What Are Snoring and Sleep Apnea?, Depression Affects Your Mind ..., Counseling for Depression Additional Instructions / Restrictions: 1. You have sleep apnea and this is a risk for atrial fibrillation and strokes. I suspect you are having AFIB at night when you are sleeping and the oxygen saturation drops. You will be scheduled for a sleep study. The sleep lab will call you to schedule this. Until you have your sleep study and get treated you will need to wear oxygen 2 LPM any time you are sleeping. 2. We are discharging you with an order for a heart monitor that you will wear for 30 days to see if you are having intermittent AFIB. They will mail it to your house. your blood sugars have been under very good control and you are not currently taking insulin. If you do not comply with the diet the blood sugars will not be controlled and you may need to go back on insulin. 3. It is very important to take your medications as directed and that you follow up with your physicians. 4. I think that you have been depressed and not taking care of yourself for quite a long time. You had a major stroke. You have chronic congestive heart failure and your heart does not squeeze well. I think in order for you to want to take care of yourself and get better the depression needs to be aggressively treated. You need medication and counselling and I hope you are able to get this help and you are open to seeking out help. You will have much better quality of life. 5. If you have any questions after you leave rehab please do not hesitate to call me. You made very good progress on rehab and you have been a pleasure to work with. Take care of yourself. OFFICE: [phone] CELL: [phone] NURSES STATION ON REHAB: [phone] You are still having loose stool even though I discontinued the stool softeners. I have decreased the dose of the Metformin to 500 mg once a day at the time of DC from rehab. Discharge Orders/Prescriptions Prescriptions: New bumetanide 0.5 mg Tablet 1 mg PO SuMoWeThFr Qty: 30 0RF sertraline 100 mg tablet 100 mg PO DAILY Qty: 30 0RF potassium chloride 10 mEq capsule, extended release 10 meq PO DAILY Qty: 30 0RF Jardiance 25 mg tablet 25 mg PO DAILY Qty: 30 0RF losartan 25 mg tablet 25 mg PO DAILY Qty: 30 0RF metformin [Glucophage XR] 500 mg tablet extended release 24 hr 500 mg PO BID Qty: 60 0RF metformin [Glucophage XR] 500 mg tablet extended release 24 hr 500 mg PO DAILY Qty: 30 0RF Continued acetaminophen 325 mg Tablet 650 mg PO Q6H PRN PRN (Reason: Pain/fever) Qty: 0 0RF atorvastatin 40 mg tablet 40 mg PO QHS Qty: 30 0RF pantoprazole 40 mg Tablet,Delayed Release (Dr/Ec) 40 mg PO DAILY Qty: 30 0RF metoprolol succinate 25 mg capsule,sprinkle,ER 24hr 25 mg PO BID Qty: 60 0RF aspirin 81 mg capsule 81 mg PO DAILY Qty: 30 0RF Discontinued Entresto 49-51 mg Tablet 1 tab PO BID Qty: 0 0RF Jardiance 10 mg tablet 10 mg PO DAILY bumetanide 1 mg tablet 1 mg PO DAILY clopidogrel 75 mg tablet 75 mg PO DAILY insulin glargine [Lantus Solostar U-100 Insulin] 100 unit/mL (3 mL) insulin pen 15 unit subcut QHS amoxicillin-pot clavulanate 875-125 mg Tablet 1 tab PO BID Other Ambulatory Orders: 30 Day Event Recorder Preventi (Routine) Timeframe: 1 Day Facility: [facility] - Location: Cardiovascular Services Ordered By: Dr. Lara Forman Referrals / Follow Up: 30 Day Event Monitor [Other] (Monitor will be mail to your house with instructions on how to use) [facility] [Provider Group] - 04/02/25 9:00 am Ryanne Pacheco NP-C [Med Staff - Inventory Checker] - 04/10/25 10:15 am Angy Lundy PA [Med Staff - Adv Practice Prof] - 04/02/25 3:00 pm Disposition Disposition (needs filled in before D/C Order can be placed): Home, Self Care Charges/Coding Visit Charges Inpatient E&M: 54270 Disch Hosp >30min
[2025-03-29 18:00] VITALS: BP 164/56; PULSE 61; RESP 16; TEMP 36.9; O2SAT 96
[2025-03-29 21:58] VITALS: BP 172/74; PULSE 74
[2025-03-29] MEDS: Atorvastatin Calcium 40 MG Tablet PO (21:58)
[2025-03-29] MEDS: 0.9% Normal Saline (1000mL) 1,000 ML 80 ML IV (22:55)
[2025-03-29 23:16] LABS: Bedside Glucose 92 mg/dL (74-106)
[2025-03-30 01:35] VITALS: RESP 16; O2SAT 95
[2025-03-30] MEDS: Enoxaparin 40 MG/0.4 ML Syringe SC (05:34)
[2025-03-30 05:35] VITALS: BP 139/67; PULSE 72; RESP 16; TEMP 36.4; O2SAT 94
[2025-03-30 06:55] LABS: Bedside Glucose 112 mg/dL (74-106)
[2025-03-30 08:00] VITALS: BMI 29.8
[2025-03-30] MEDS: Losartan Potassium 25 MG Tablet PO (08:16)
[2025-03-30] MEDS: buPROPion (XL) 150 MG TABLET.XL PO (08:16)
[2025-03-30] MEDS: Potassium Chloride Oral Tablet 10 MEQ PO (08:16)
[2025-03-30] MEDS: metFORMIN (XR) 500 MG Tablet PO (08:16)
[2025-03-30] MEDS: Aspirin 81 MG TAB.CHEW PO (08:16)
[2025-03-30] MEDS: Sertraline 100 MG Tablet PO (08:16)
[2025-03-30 08:17] VITALS: PULSE 72
[2025-03-30] MEDS: Pantoprazole Sodium 40 MG Tablet PO (08:17)
[2025-03-30] MEDS: Empagliflozin 25 MG Tablet PO (08:17)
[2025-03-30] MEDS: Metoprolol(XL)Succ 25 MG Tablet PO (08:17)
[2025-03-30] MEDS: Menthol/Lanolin/Calamine/Znox 113 GM Tube 1 APPLIC TOPICAL (08:18)
--- NOTE | 2025-03-30 11:30 | NURSING ---
Discharge instructions provided and patient verbalized understanding.
== END 2025-03-30 11:30 | disposition home or self-care (01) | DRG 56 ==
PROVIDERS: Admitting Provider Internal Medicine; Visit Provider Internal Medicine
DX: I69.351 Hemiplegia and hemiparesis following cerebral infarction affecting right dominant side (principal); I50.43 Acute on chronic combined systolic (congestive) and diastolic (congestive) heart failure; A04.72 Enterocolitis due to Clostridium difficile, not specified as recurrent; I42.8 Other cardiomyopathies; J45.21 Mild intermittent asthma with (acute) exacerbation; Q21.12 Patent foramen ovale; I27.20 Pulmonary hypertension, unspecified; H53.461 Homonymous bilateral field defects, right side; K29.80 Duodenitis without bleeding; I11.0 Hypertensive heart disease with heart failure; E11.65 Type 2 diabetes mellitus with hyperglycemia; F32.A Depression, unspecified; I69.392 Facial weakness following cerebral infarction; E66.9 Obesity, unspecified; E11.40 Type 2 diabetes mellitus with diabetic neuropathy, unspecified; Z79.4 Long term (current) use of insulin; E78.5 Hyperlipidemia, unspecified; I25.10 Atherosclerotic heart disease of native coronary artery without angina pectoris; I95.1 Orthostatic hypotension; K44.9 Diaphragmatic hernia without obstruction or gangrene; I44.7 Left bundle-branch block, unspecified; K57.30 Diverticulosis of large intestine without perforation or abscess without bleeding; D12.6 Benign neoplasm of colon, unspecified; G47.33 Obstructive sleep apnea (adult) (pediatric); K21.9 Gastro-esophageal reflux disease without esophagitis; I69.393 Ataxia following cerebral infarction; I69.322 Dysarthria following cerebral infarction; R15.9 Full incontinence of feces; Z68.30 Body mass index [BMI] 30.0-30.9, adult; Z79.84 Long term (current) use of oral hypoglycemic drugs; Z79.82 Long term (current) use of aspirin; Z79.02 Long term (current) use of antithrombotics/antiplatelets; Z79.899 Other long term (current) drug therapy; Z91.148 Patient's other noncompliance with medication regimen for other reason; R32 Unspecified urinary incontinence
CPT/HCPCS: 36415; 80048; 80053; 80069; 82962; 83735; 85014; 85018; 85025; 85027; 87493; 92507; 92523; 94762; 97110; 97112; 97116; 97129; 97130; 97162; 97166; 97530; 97535; 97802; 97803; A4216